=== PATIENT | male | born 1955 | race Caucasian/White ===

== ENCOUNTER 2016-12-15 18:16 | Inpatient (IN) | payer OTHER ==
[~2016-12-15] VITALS: Ht 188 cm; Wt 134.8 kg
--- NOTE | 2016-12-15 18:30 | NUR ---
PT CAME IN FOR GENERALIZED WEAKNESS, NOTED SWELLING ON BLE, COMPLAINS OF MORE WEAKNESS ON LEFT LEG. ABLE TO MOVE, COMPLAINS OF MINIMAL NUMBNESS. PT AAOX3. NOTED ELEVATED BP. SEEN BY MD FOR EVAL. SAFETY AND COMFORT MEASURES PROVIDED. WILL MONITOR.
[2016-12-15] MEDS ORDERED: FURO40TA5 PO (18:46)
[2016-12-15] MEDS ORDERED: POTA20TA83 PO (18:46)
[2016-12-15] MEDS ORDERED: LOSA50TA21 PO (18:46)
[2016-12-15] MEDS ORDERED: AMLO5TAB2 PO (18:46)
[2016-12-15] MEDS ORDERED: ASPIRIN 325 MG TABLET ONE (18:50)
--- NOTE | 2016-12-15 18:59 | NUR ---
IV ACCESS STARTED. BLOOD DRAWN FOR LABS. PT MEDICATED ORDERED.
[2016-12-15] MEDS ORDERED: ASPIRIN 325 MG TABLET PO ONE (19:00)
[2016-12-15 19:07] LABS: BASOPHILS # (AUTO) 0.1 /CMM (0.0-0.2); BASOPHILS % (AUTO) 0.5 % (0.0-2.0); EOSINOPHILS # (AUTO) 0.4 /CMM (0.0-0.7); EOSINOPHILS % (AUTO) 2.6 % (0.0-6.0); HEMATOCRIT 46 % (39-51); HEMOGLOBIN 14.6 g/dL (13.5-17.5); LYMPHOCYTES # (AUTO) 0.9 /CMM (0.8-4.8); LYMPHOCYTES % (AUTO) 6.3 % (20.0-44.0); MEAN CORPUSCULAR HEMOGLOBIN 27 PG (26.0-33.0); MEAN CORPUSCULAR HGB CONC 32 g/dl (31.0-36.0); MEAN CORPUSCULAR VOLUME 86 fL (80-96); MONOCYTES # (AUTO) 0.4 /CMM (0.1-1.30); NEUTROPHILS % (AUTO) 87.6 % (43.0-81.0); PLATELET COUNT (AUTO) 299 /CMM (150-450); RDW COEFFICIENT OF VARIATION 16.9 (11.5-15.0); RED BLOOD CELL COUNT(AUTO) 5.43 MIL/uL (4.5-6.0); WHITE BLOOD COUNT (AUTO) 14.9 K/uL (4.3-11.0)
--- NOTE | 2016-12-15 19:12 | NUR ---
RADIOLOGY TEAM AT BED SIDE FOR X RAY
[2016-12-15 19:24] LABS: CALCIUM, SERUM 8.5 mg/dL (8.5-10.1); CREATININE 4.8 mg/dL (0.6-1.3); POTASSIUM 3.9 mmol/L (3.5-5.1)
[2016-12-15 19:29] LABS: INR 1.13 (0.87-1.13); PROTHROMBIN TIME 12.2 SECS (9.5-12.7)
[2016-12-15 19:33] LABS: TROPONIN I 0.141 ng/mL (0.00-0.056)
[2016-12-15 19:43] LABS: ALBUMIN 2.8 g/dL (3.4-5.0); BILIRUBIN,DIRECT 0.4 mg/dL (0.0-0.2); BILIRUBIN,TOTAL 1.8 mg/dL (0.2-1.0); TOTAL PROTEIN, SERUM 7.1 g/dL (6.4-8.2)
--- NOTE | 2016-12-15 20:14 | NUR ---
CALLED NURSING SUP. FOR TELE BED
--- NOTE | 2016-12-15 20:31 | NUR ---
PT RESTING IN ER BED, NAD NOTED, WILL CONTINUE TO MONITOR
[2016-12-15] MEDS ORDERED: FUROSEMIDE 20 MG/2 ML VIAL IV ONE (21:00)
--- NOTE | 2016-12-15 21:05 | NUR ---
panel call made
--- NOTE | 2016-12-15 21:07 | NUR ---
MEDICATED PT ORDERED
--- NOTE | 2016-12-15 21:08 | NUR ---
TRANSPORTED PT TO TELE BED WITHOUT INCIDENT
[2016-12-15] MEDS ORDERED: FUROSEMIDE 20 MG/2 ML VIAL ONE (21:20)
--- NOTE | 2016-12-15 21:35 | NUR ---
HYDROLOGY PROFESSOR NOTE RECEIVED PATIENT FROM ER, PATIENT IS ALERT AND ORIENTEDX3, WEAK BLE, DENIES RESPIRATORY DISTRESS AND COMPLAINS OF MILD BACK PAIN. IV ON RIGHT AC IS PATENT AND INTACT, MULTIPLE SCABS AND RASHES NOTED ON HIS SKIN, PICTURE TAKEN AND WILL PUT THEM IN A CHART. PATIENT GOT LASIX AT ER, ENCOURAGED PT TO VOID IN A URINAL, BUT WAS NOT ABLE TO DO IT DUE TO SWOLLEN TESTICLES. WILL REQUEST DICKENS INSERT ORDER. TELE MONITOR SR 77 WITH BBB. SRX2, BED IN LOW POSITION, CALL LIGHT WITHIN REACH, WILL CONTINUE TO MONITOR PATIENT.
[2016-12-15] MEDS ORDERED: MORPHINE SULFATE INJ 2 MG/ML DISP.SYRIN IV PRN (22:00)
[2016-12-15] MEDS ORDERED: ACETAMINOPHEN 325 MG TABLET PO PRN (22:00)
[2016-12-15] MEDS ORDERED: ONDANSETRON HCL/PF 4 MG/2 ML VIAL IVP PRN (22:00)
[2016-12-15] MEDS ORDERED: ATORVASTATIN 40 MG TABLET PO SCH (22:00)
[2016-12-15] MEDS ORDERED: MAG HYDROX/AL HYDROX/SIMETH 30 ML UDC PO PRN (22:00)
[2016-12-15] MEDS ORDERED: MAGNESIUM HYDROXIDE 30 ML UDC PO PRN (22:00)
[2016-12-15] MEDS ORDERED: hydrALAZINE HCL 25 MG TABLET ONE (22:08)
[2016-12-15] MEDS ORDERED: ATORVASTATIN 40 MG TABLET ONE (22:09)
--- NOTE | 2016-12-15 22:15 | NUR ---
FILLER WIPER NOTE REPORTED EAMON CIFUENTES THAT PATIENT IS NOT ABLE TO VOID ON HIS OWN INTO URINAL, LASIX GIVEN AT ER, REQUESTED DICKENS INSERTION ORDER. ORDERED DICKENS INSERTION, ORDERS PUT IN. DICKENS CATH WAS INSERTED SUCCESSFULLY, GOT AN URINE SAMPLE. CALLED THE LAB TO OIL PUMP STATION OPERATOR CHIEF THE SPECIMEN.
[2016-12-15] MEDS: hydrALAZINE HCL 25 MG TABLET PO PRN (22:23)
[2016-12-15 22:35] VITALS: BP 203/93
[2016-12-15 23:32] LABS: APPEARANCE,URINE TURBID (CLEAR); BILIRUBIN,URINE NEGATIVE (NEGATIVE); BLOOD, URINE 3+ Ery/uL (NEGATIVE); COLOR,URINE YELLOW (YELLOW); KETONES,URINE TRACE (NEGATIVE); LEUKOCYTE ESTERASE ,URINE 3+ (NEGATIVE); NITRITE, URINE NEGATIVE (NEGATIVE); PH,URINE 5.5 (5.0-8.0); PROTEIN,URINE 2+ mg/dl (NEGATIVE); UGLUCOSE NEGATIVE (NEGATIVE); UROBILINOGEN,URINE 0.2 EU/dL (0.2)
[2016-12-15 23:37] LABS: ADD URINE CULTURE YES; BACTERIA,URINE Moderate /HPF (None Seen); SQUAMOUS EPITHELIAL CELL,UR Rare /HPF (None Seen); WBC,URINE 51-80 /HPF (0-3)
[2016-12-16] VITALS (9 sets, daily range): BP systolic 147–186; BP diastolic 74–96
[2016-12-16] MEDS ORDERED: ENALAPRILAT DIHYD. (2.5MG/ML) 1.25 MG/ML VIAL IV PRN (00:30)
[2016-12-16] MEDS ORDERED: CEFTRIAXONE 1 G in IV D5W 50 ML IV SCH (01:30)
[2016-12-16] MEDS ORDERED: CEFTRIAXONE 1 G VIAL ONE (01:54)
[2016-12-16] MEDS ORDERED: IV D5W 50 ML IV ONE (01:55)
[2016-12-16] MEDS ORDERED: SECONDARY IV SET 1 EA INFUS.SET MC ONE ×2 (01:56→12:50)
[2016-12-16] MEDS ORDERED: IV SET PRIMARY PUMP SET 1 EA INFUS.SET MC ONE (01:56)
[2016-12-16] MEDS ORDERED: IV NS 0.9% 250 ML IV ONE (01:56)
[2016-12-16] MEDS ORDERED: hydrALAZINE HCL 25 MG TABLET ONE (04:37)
[2016-12-16] MEDS: hydrALAZINE HCL 25 MG TABLET PO PRN ×2 (04:42→23:48)
--- NOTE | 2016-12-16 06:44 | NUR ---
PARALEGAL ASSISTANT NOTE PATIENT IS RESTING IN BED COMFORTABLY, DENIES RESPIRATORY DISTRESS OR PAIN AT THIS TIME. IV ON RIGHT AC IS PATENT AND INTACT, HL ONLY. HIS BP AT 0620 WAS 175/93, GETTING LOWER THAN 0400 (186/93). TELE MONITOR SR WITH BBB 73. WILL ENDORSE TO DAY SHIFT FOR SABINA.
[2016-12-16 06:50] LABS: BASOPHILS # (AUTO) 0.1 /CMM (0.0-0.2); BASOPHILS % (AUTO) 0.5 % (0.0-2.0); EOSINOPHILS # (AUTO) 0.4 /CMM (0.0-0.7); EOSINOPHILS % (AUTO) 3.3 % (0.0-6.0); HEMATOCRIT 42 % (39-51); HEMOGLOBIN 13.6 g/dL (13.5-17.5); LYMPHOCYTES # (AUTO) 1.1 /CMM (0.8-4.8); LYMPHOCYTES % (AUTO) 8.1 % (20.0-44.0); MEAN CORPUSCULAR HEMOGLOBIN 28 PG (26.0-33.0); MEAN CORPUSCULAR HGB CONC 32 g/dl (31.0-36.0); MEAN CORPUSCULAR VOLUME 85 fL (80-96); MONOCYTES # (AUTO) 0.6 /CMM (0.1-1.30); MONOCYTES % (AUTO) 4.5 % (2.0-12.0); NEUTROPHILS % (AUTO) 83.6 % (43.0-81.0); PLATELET COUNT (AUTO) 285 /CMM (150-450); RDW COEFFICIENT OF VARIATION 17.2 (11.5-15.0); RED BLOOD CELL COUNT(AUTO) 4.93 MIL/uL (4.5-6.0); WHITE BLOOD COUNT (AUTO) 13.2 K/uL (4.3-11.0)
[2016-12-16 07:16] LABS: CALCIUM, SERUM 8.1 mg/dL (8.5-10.1); CREATININE 4.5 mg/dL (0.6-1.3); MAGNESIUM 1.7 mg/dL (1.8-2.4); PHOSPHORUS 5.1 mg/dL (2.5-4.9); POTASSIUM 3.6 mmol/L (3.5-5.1)
--- NOTE | 2016-12-16 08:00 | NUR ---
FRIDA AM NOTES RECEIVED PATIENT IN STABLE CONDITION WITH NO SOB, DISTRESS, OR COMPLAINTS OF PAIN NOTED. ALL NEEDS MET. WILL CONTINUE TO MONITOR
[2016-12-16] MEDS ORDERED: AMLODIPINE BESYLATE 5 MG TABLET PO SCH (09:00)
[2016-12-16] MEDS ORDERED: LOSARTAN POTASSIUM 50 MG TABLET PO SCH (09:00)
[2016-12-16] MEDS: ASPIRIN 81 MG TAB.CHEW PO SCH (10:40)
[2016-12-16] MEDS: PANTOPRAZOLE 40 MG TABLET.DR PO SCH (10:40)
[2016-12-16] MEDS ORDERED: Magnesium 1GM/D5W 100ML PREMIX 100 ML IV SCH (10:46)
[2016-12-16 11:13] LABS: THYROID STIMULATING HORMONE 0.947 uIU/mL (0.358-3.74)
[2016-12-16] MEDS: HEPARIN SODIUM, PORCINE 5000 UNITS/1 ML VIAL SQ SCH ×2 (13:01→21:07)
[2016-12-16] MEDS: ISOSORBIDE DINITRATE (20MG) 20 MG TABLET PO SCH ×2 (13:04→16:44)
[2016-12-16] MEDS: hydrALAZINE HCL 25 MG TABLET PO SCH ×2 (13:08→21:05)
--- NOTE | 2016-12-16 19:05 | NUR ---
RN PM NOTES PATIENT IN BED RESTING, COMPLAINTS OF 3/10 PAIN, OFFLOADED BLE WITH PILLOWS AND GAVE PAIN MEDICATION, PATIENT FEELS RELIEF. FRESH WATER AT BEDSIDE, PATIENT WITH ADEQUATE PO LIQUID INTAKE. NEW PIV IN RIGHT HAND G 22, WITH GOOD BLOOD RETURN, RESTARTED USING ASEPTIC TECHNIQUE INTACT AND FLUSHING WELL; OLD IV DISLODGED. NO BLEEDING OR SIGNS OR SYMPTOMS OF INFILTRATION, EXTRAVASATION NOTED AT OLD SITE. BP MEDS CHANGED TODAY, BP TRENDING DOWN. WILL ENDORSE TO NEXT SHIFT.
--- NOTE | 2016-12-16 19:45 | NUR ---
MS RN INITIAL NOTES: RECEIVED REPORT FROM POLA GALICIA. PT ON BED, AWAKE, A/O X4, DENIES ANY SOB, LUNGS CLEAR UPON AUSCULTATION. DENIES ANY PAIN AT THIS TIME. LEFT HAND IV ACCESS PATENT AND FLUSHING WELL, ON HL. PT NOTED TO HAVE EDEMA ON BLE AND LEFT HAND, OFFLOADED ON PILLOWS. HAS DICKENS CATHETER IN PLACED DRAINING INTO YELLOW COLORED URINE. SAFETY PRECAUTIONS FOR FALL INITIATED CALL LIGHT IN REACH. WILL CONTINUE TO MONITOR
[2016-12-16] MEDS ORDERED: DOXAZOSIN MESYLATE (1 MG) 1 MG TABLET PO SCH (22:00)
--- NOTE | 2016-12-16 23:31 | NUR ---
ms rn notes: experimental machining lab manager came to draw troponin
[2016-12-16] MEDS: ZOLPIDEM TARTRATE 5 MG TABLET PO PRN (23:49)
--- NOTE | 2016-12-16 23:49 | NUR ---
ms rn notes: pt requested for sleeping pill stated he didnt sleep for 2days and really would like to sleep, prn ambien 5mg tab po administered to the pt, also recheck bp and reveal 164/78 hr 78, prn apresoline 25mg po administered to the pt at this time, will continue to monitor
--- NOTE | 2016-12-17 01:07 | NUR ---
MS RN NOTES: TROPONIN RESULT CAME BACK 0.126 PREVIOUS RESULT IS 0.117, VS STABLE, PT DENIES ANY CHEST PAIN, INFORMED DR HUMPHRIES, NO NEW ORDERS MADE
[2016-12-17] MEDS ORDERED: SECONDARY IV SET 1 EA INFUS.SET MC ONE (01:56)
[2016-12-17] MEDS: CEFTRIAXONE 1 G in IV D5W 50 ML IV SCH (01:56)
--- NOTE | 2016-12-17 02:15 | NUR ---
ms rn notes: seen pt sleeping at this time, appears comfortable
[2016-12-17 05:30] VITALS: BP 180/83
[2016-12-17] MEDS: hydrALAZINE HCL 25 MG TABLET PO SCH ×3 (05:31→21:32)
[2016-12-17] MEDS: Z GUARD REMEDY 2 OZ OINT TP PRN (05:32)
[2016-12-17 06:30] VITALS: BP 151/77
--- NOTE | 2016-12-17 06:49 | NUR ---
ms rn closing notes: pt on bed, awake, denies any pain or discomfort at this time. denies any sob. ble remains offloaded. lake bag was emptied. iv access remains patent and flushing well, on hl. vs remains stable, needs attended. safety precautions for fall remains engaged, call light in reach. will endorse to day rn for radha.
[2016-12-17 06:59] LABS: BASOPHILS # (AUTO) 0.1 /CMM (0.0-0.2); BASOPHILS % (AUTO) 0.6 % (0.0-2.0); EOSINOPHILS # (AUTO) 0.6 /CMM (0.0-0.7); EOSINOPHILS % (AUTO) 3.7 % (0.0-6.0); HEMATOCRIT 38 % (39-51); HEMOGLOBIN 12.2 g/dL (13.5-17.5); LYMPHOCYTES # (AUTO) 1.3 /CMM (0.8-4.8); LYMPHOCYTES % (AUTO) 7.7 % (20.0-44.0); MEAN CORPUSCULAR HEMOGLOBIN 28 PG (26.0-33.0); MEAN CORPUSCULAR HGB CONC 32 g/dl (31.0-36.0); MEAN CORPUSCULAR VOLUME 86 fL (80-96); MONOCYTES # (AUTO) 0.7 /CMM (0.1-1.30); MONOCYTES % (AUTO) 3.8 % (2.0-12.0); NEUTROPHILS # (AUTO) 14.4 /CMM (1.8-8.9); NEUTROPHILS % (AUTO) 84.2 % (43.0-81.0); PLATELET COUNT (AUTO) 245 /CMM (150-450); RED BLOOD CELL COUNT(AUTO) 4.36 MIL/uL (4.5-6.0); WHITE BLOOD COUNT (AUTO) 17.1 K/uL (4.3-11.0)
[2016-12-17 07:25] LABS: CALCIUM, SERUM 7.8 mg/dL (8.5-10.1); CREATININE 4.5 mg/dL (0.6-1.3); POTASSIUM 3.6 mmol/L (3.5-5.1)
[2016-12-17 07:26] LABS: ALBUMIN 2.3 g/dL (3.4-5.0); BILIRUBIN,TOTAL 0.6 mg/dL (0.2-1.0); MAGNESIUM 1.8 mg/dL (1.8-2.4); PHOSPHORUS 4.7 mg/dL (2.5-4.9); TOTAL PROTEIN, SERUM 5.8 g/dL (6.4-8.2)
[2016-12-17 07:35] LABS: BILIRUBIN,URINE NEGATIVE (NEGATIVE); BLOOD, URINE 1+ Ery/uL (NEGATIVE); KETONES,URINE NEGATIVE (NEGATIVE); LEUKOCYTE ESTERASE ,URINE NEGATIVE (NEGATIVE); NITRITE, URINE NEGATIVE (NEGATIVE); PH,URINE 5.5 (5.0-8.0); PROTEIN,URINE 2+ mg/dl (NEGATIVE); UGLUCOSE TRACE mg/dL (NEGATIVE); UROBILINOGEN,URINE 0.2 EU/dL (0.2)
[2016-12-17 07:36] LABS: APPEARANCE,URINE SLIGHTLY CLOUDY (CLEAR); COLOR,URINE YELLOW (YELLOW)
[2016-12-17 07:39] LABS: ADD URINE CULTURE YES; BACTERIA,URINE Few /HPF (None Seen); MUCUS,URINE Few /LPF (None Seen); SQUAMOUS EPITHELIAL CELL,UR 0-2 /HPF (None Seen); URINE AMORPHOUS URATE Few /HPF (None Seen)
[2016-12-17 07:42] LABS: CREATININE, URINE 91.9 MG/DL (30.0-125.0); URINE TOTAL PROTEIN 246.7 mg/dL (0-11.9)
[2016-12-17 08:00] VITALS: BP 159/93
[2016-12-17 08:18] LABS: EOSINOPHIL,URINE None Seen
[2016-12-17] MEDS ORDERED: NIFEdipine XL 60 MG TAB PO SCH (09:00)
--- NOTE | 2016-12-17 09:05 | NUR ---
PATIENT RESIDES AT HOME BY HIMSELF. PER PATIENT, WILL AGREE WITH PLACEMENT IF RECOMMENDED BY PT SINCE PATIENT REPORTED THAT HE HAS DIFFICULTY AMBULATING. PATIENT IS A&OX3, NEEDS ASSISTANCE WITH ADLS. NEEDS TRANSPORTATION UPON D/C.
--- NOTE | 2016-12-17 09:32 | NUR ---
WOUND CARE CONSULT: PATIENT SEEN AND SKIN ASSESSMENT DONE. PATIENT ALERT, HAS DIFFICULTY TURNING AND REPOSITIONING DUE TO C/O BACK PAIN, HAS F/C, MADELYN 14, WEIGHT = 303 LBS, BARIMAXX II BED WITH ETS ORDERED AND WILL BE PLACED WHEN AVAILABLE IN THE UNIT. SEE TODAY'S SKIN ASSESSMENT IN PCS ALONG WITH RECOMMENDATIONS INCLUDING MOISTURE PROTECTION AND PRESSURE PREVENTION MEASURES DISCUSSED WITH NURSING STAFF. MD IN AGREEMENT WITH PLAN OF CARE. Addendum: 12/17/16 at 0936 by MARCUS TOBIN WNDNU Amended: Links added.
[2016-12-17] MEDS: PANTOPRAZOLE 40 MG TABLET.DR PO SCH (09:40)
[2016-12-17] MEDS: ASPIRIN 81 MG TAB.CHEW PO SCH (09:40)
[2016-12-17] MEDS: ISOSORBIDE DINITRATE (20MG) 20 MG TABLET PO SCH ×2 (09:41→17:15)
[2016-12-17] MEDS: NIFEdipine XL (30MG) 30 MG TAB PO SCH (09:41)
[2016-12-17] MEDS: HEPARIN SODIUM, PORCINE 5000 UNITS/1 ML VIAL SQ SCH ×2 (09:48→21:30)
[2016-12-17] MEDS: HYDROCODONE/APAP 5/325MG 1 EACH TABLET PO PRN (14:15)
[2016-12-17 16:00] VITALS: BP 140/76
[2016-12-17] MEDS: DOXAZOSIN MESYLATE (1 MG) 1 MG TABLET PO SCH (17:14)
[2016-12-17] MEDS: NEOMY SULF/BACITRAC ZN/POLY 15 GM TUBE TP SCH (17:15)
--- NOTE | 2016-12-17 18:41 | NUR ---
CHANGE OF SHIFT REPORT PT RESTING COMFORTABLY IN BED WITH EYES CLOSED. NO S/S OR C/O PAIN OR DISTRESS NOTED. SIDE RAILS UP X2, CALL LIGHT LEFT WITHIN REACH. PT KEPT CLEAN, DRY, AND COMFORTABLE. NO SIGNIFICANT CHANGES SINCE PREVIOUS SHIFT. WILL GIVE REPORT TO SHEY GALICIA.
--- NOTE | 2016-12-17 19:30 | NUR ---
BEVELING AND EDGING MACHINE OPERATOR NOTE, RECEIVED PATIENT AWAKE AND IN BED, NO S/S OR COMPLAINTS OF PAIN AT THIS TIME. PATIENT IS DISPLAYING NO S/S OF APPARENT DISTRESS AT THIS TIME. PATIENT BREATHING IS UNLABORED WITH EQUAL RISE AND FALL OF THE CHEST. PATIENT IS ALERT AND ORIENTED X 3 ON 3 LITERS OF O2 VIA NASAL CANNULA WITH A SPO2 93%. PATIENT HAS LEFT HAND 22 GAUGE SALINE LOCK THAT IS INTACT, PATENT, AND FLUSHING WELL WITH NO S/S OF INFILTRATION. PATIENT ASSISTED WITH TURNING AND REPOSITIONING Q2HR AND PRN FOR COMFORT AND CIRCULATION. PATIENT HAS NO NEEDS AT THIS TIME. PATIENT EDUCATED ON THE USE OF THE CALL HOOVER. PATIENT BED SIDE RAILS UP X2 FOR SAFETY, BED IS LOCKED AND LOW WILL CONTINUE TO MONITOR AND MAINTAIN SAFETY.
--- NOTE | 2016-12-17 19:35 | NUR ---
R PROGRAMMER NOTE PATIENT HAS DICKENS CATHETER GRAVITY DRAINING CLEAR YELLOW URINE 200 ML IN BAG AT THIS TIME. WILL CONTINUE TO MONITOR THIS PATIENT.
[2016-12-17 20:00] VITALS: BP 152/76
[2016-12-18 00:33] VITALS: BP 152/76
[2016-12-18] MEDS: CEFTRIAXONE 1 G in IV D5W 50 ML IV SCH (01:49)
[2016-12-18 02:15] LABS: VIT D, 25-HYDROXY 7.8 ng/mL (30.0-100.0)
[2016-12-18] MEDS: hydrALAZINE HCL 25 MG TABLET PO SCH ×3 (04:11→22:03)
--- NOTE | 2016-12-18 06:33 | NUR ---
REPEAT CHIEF NOTE, PATIENT AWAKE AND IN BED, NO S/S OR COMPLAINTS OF PAIN AT THIS TIME. PATIENT IS DISPLAYING NO S/S OF APPARENT DISTRESS AT THIS TIME. PATIENT BREATHING IS UNLABORED WITH EQUAL RISE AND FALL OF THE CHEST. PATIENT IS ALERT AND ORIENTED X 3 ON 3 LITERS OF O2 VIA NASAL CANNULA WITH A SPO2 96%. PATIENT HAS LEFT HAND 22 GAUGE SALINE LOCK THAT IS INTACT, PATENT, AND FLUSHING WELL WITH NO S/S OF INFILTRATION. PATIENT HAS A DICKENS CATHETER GRAVITY DRAINING CLEAR YELLOW URINE. PATIENT ASSISTED WITH TURNING AND REPOSITIONING Q2HR AND PRN FOR COMFORT AND CIRCULATION. ALL PATIENT NEEDS ANTICIPATED AND MET. PATIENT KEPT CLEAN, DRY, AND COMFORTABLE THROUGH OUT THE SHIFT. PATIENT BED SIDE RAILS UP X2 FOR SAFETY, BED IS LOCKED AND LOW WILL ENDORSE TO AM SHIFT NURSE FOR CONTINUATION OF CARE.
[2016-12-18 07:26] LABS: CALCIUM, SERUM 7.9 mg/dL (8.5-10.1); CREATININE 4.5 mg/dL (0.6-1.3); POTASSIUM 3.6 mmol/L (3.5-5.1)
--- NOTE | 2016-12-18 07:30 | NUR ---
PT RECEIVED RESTING COMFORTABLY IN BED. NO S.S OR C.O PAIN OR DISTRESS NOTED. SIDE RAILS UP X2, CALL LIGHT LEFT WITHIN REACH. WILL CONTINUE PLAN OF CARE.
[2016-12-18 07:32] LABS: BASOPHILS # (AUTO) 0.1 /CMM (0.0-0.2); BASOPHILS % (AUTO) 0.7 % (0.0-2.0); EOSINOPHILS # (AUTO) 0.4 /CMM (0.0-0.7); EOSINOPHILS % (AUTO) 4.7 % (0.0-6.0); HEMATOCRIT 37 % (39-51); HEMOGLOBIN 11.9 g/dL (13.5-17.5); MEAN CORPUSCULAR HEMOGLOBIN 28 PG (26.0-33.0); MEAN CORPUSCULAR HGB CONC 32 g/dl (31.0-36.0); MEAN CORPUSCULAR VOLUME 85 fL (80-96); MONOCYTES # (AUTO) 0.5 /CMM (0.1-1.30); MONOCYTES % (AUTO) 5.2 % (2.0-12.0); NEUTROPHILS # (AUTO) 7.3 /CMM (1.8-8.9); NEUTROPHILS % (AUTO) 78.4 % (43.0-81.0); PLATELET COUNT (AUTO) 227 /CMM (150-450); RDW COEFFICIENT OF VARIATION 16.7 (11.5-15.0); WHITE BLOOD COUNT (AUTO) 9.3 K/uL (4.3-11.0)
[2016-12-18 08:00] VITALS: BP 141/77
[2016-12-18 08:24] LABS: *SPE A/G RATIO 0.9 (0.7-1.7); *SPE ALBUMIN 2.4 g/dL (2.9-4.4); *SPE ALPHA-1-GLOBULIN 0.3 g/dL (0.0-0.4); *SPE ALPHA-2-GLOBULIN 0.8 g/dL (0.4-1.0); *SPE BETA GLOBULIN 1.1 g/dL (0.7-1.3); *SPE GLOBULIN, TOTAL 2.8 g/dL (2.2-3.9); *SPE M-SPIKE Not Observed g/dL (Not Observed); *SPE PROTEIN TOTAL 5.2 g/dL (6.0-8.5); *SPEGAMMA GLOBULIN 0.7 g/dL (0.4-1.8)
[2016-12-18] MEDS: HEPARIN SODIUM, PORCINE 5000 UNITS/1 ML VIAL SQ SCH ×2 (08:35→22:04)
[2016-12-18] MEDS: DOXAZOSIN MESYLATE (1 MG) 1 MG TABLET PO SCH ×2 (08:38→16:37)
[2016-12-18] MEDS: ISOSORBIDE DINITRATE (20MG) 20 MG TABLET PO SCH ×2 (08:38→16:37)
[2016-12-18] MEDS: ASPIRIN 81 MG TAB.CHEW PO SCH (08:38)
[2016-12-18] MEDS: NIFEdipine XL (30MG) 30 MG TAB PO SCH (08:39)
[2016-12-18] MEDS: PANTOPRAZOLE 40 MG TABLET.DR PO SCH (08:39)
[2016-12-18] MEDS: NEOMY SULF/BACITRAC ZN/POLY 15 GM TUBE TP SCH (08:40)
[2016-12-18 10:33] LABS: *SPE A/G RATIO 0.9 (0.7-1.7); *SPE ALBUMIN 2.4 g/dL (2.9-4.4); *SPE ALPHA-1-GLOBULIN 0.3 g/dL (0.0-0.4); *SPE ALPHA-2-GLOBULIN 0.7 g/dL (0.4-1.0); *SPE GLOBULIN, TOTAL 2.6 g/dL (2.2-3.9); *SPE M-SPIKE Not Observed g/dL (Not Observed); *SPEGAMMA GLOBULIN 0.6 g/dL (0.4-1.8)
--- NOTE | 2016-12-18 15:00 | NUR ---
PT REFUSED MRI
[2016-12-18 16:00] VITALS: BP 141/77
--- NOTE | 2016-12-18 18:15 | NUR ---
PT REFUSED MRI TEACHING PERFORMED TO EXPLAIN IMPORTANCE OF PROCEDURE BUT PT CONTINUES TO REFUSE STATING HE CAN'T LAY FLAT AND STILL LONG ENOUGH.
[2016-12-18 20:00] VITALS: BP 140/85
--- NOTE | 2016-12-18 20:01 | NUR ---
MS/RN NOTES PATIENT IN BED, AWAKE AND ALERT X4. NO S/S OF SOD OR DISTRESS BUT VERBALIZE THAT HE DID NOT WANT TO HAVE MRI BECAUSE HE CANT LIE FLAT AND THAT HE DOES NOT NEED ANY MED TO CALM HIM DOEN EITHER ALTHOUGH HE WAS CONCERN WITH HIS CONDITION ESPECIALLY ON LEFT FOOT REFLEX THAT CONCERNS WITH NEURO CONSULT.NEURO WILL CONTINUE TO MONITOR..
[2016-12-19] MEDS: CEFTRIAXONE 1 G in IV D5W 50 ML IV SCH (00:50)
[2016-12-19 03:58] VITALS: BP 148/74
[2016-12-19] MEDS: hydrALAZINE HCL 25 MG TABLET PO SCH ×3 (05:15→21:21)
--- NOTE | 2016-12-19 06:00 | NUR ---
MS/RN NOTES PATIENT ALERT, ORIENTED CAN VERBALIZE NEEDS AT ALL TIMES. NO S/S OF SOB OR DISTRESS NOTED ENDORS TO UPCOMING NURSE FOR CARE.
--- NOTE | 2016-12-19 07:00 | NUR ---
MS RN INITIAL NOTES REPORT RECEIVED AT THE BEDSIDE. PATIENT IS RESTING COMFORTABLY IN BED. NO SOB OR DISTRESS NOTED AT THIS TIME. PATIENT DENIES PAIN. BED IN A LOW POSITION, CALL LIGHT WITHIN PATIENT REACH. WILL CONTINUE TO MONITOR.
[2016-12-19 07:04] LABS: BASOPHILS # (AUTO) 0.1 /CMM (0.0-0.2); BASOPHILS % (AUTO) 0.7 % (0.0-2.0); EOSINOPHILS # (AUTO) 0.4 /CMM (0.0-0.7); EOSINOPHILS % (AUTO) 4.7 % (0.0-6.0); HEMATOCRIT 38 % (39-51); HEMOGLOBIN 12.1 g/dL (13.5-17.5); MEAN CORPUSCULAR HEMOGLOBIN 28 PG (26.0-33.0); MEAN CORPUSCULAR HGB CONC 32 g/dl (31.0-36.0); MEAN CORPUSCULAR VOLUME 86 fL (80-96); MONOCYTES # (AUTO) 0.5 /CMM (0.1-1.30); MONOCYTES % (AUTO) 6.3 % (2.0-12.0); NEUTROPHILS # (AUTO) 6.6 /CMM (1.8-8.9); NEUTROPHILS % (AUTO) 76.3 % (43.0-81.0); PLATELET COUNT (AUTO) 226 /CMM (150-450); RDW COEFFICIENT OF VARIATION 16.5 (11.5-15.0); RED BLOOD CELL COUNT(AUTO) 4.39 MIL/uL (4.5-6.0); WHITE BLOOD COUNT (AUTO) 8.6 K/uL (4.3-11.0)
[2016-12-19] MEDS: ASPIRIN 81 MG TAB.CHEW PO SCH (08:12)
[2016-12-19] MEDS: DOXAZOSIN MESYLATE (1 MG) 1 MG TABLET PO SCH ×2 (08:12→16:56)
[2016-12-19] MEDS: PANTOPRAZOLE 40 MG TABLET.DR PO SCH (08:13)
[2016-12-19] MEDS: NIFEdipine XL (30MG) 30 MG TAB PO SCH (08:13)
[2016-12-19] MEDS: NEOMY SULF/BACITRAC ZN/POLY 15 GM TUBE TP SCH (08:13)
[2016-12-19] MEDS: ISOSORBIDE DINITRATE (20MG) 20 MG TABLET PO SCH ×2 (08:13→16:56)
[2016-12-19] MEDS: HEPARIN SODIUM, PORCINE 5000 UNITS/1 ML VIAL SQ SCH ×2 (08:14→21:23)
[2016-12-19 08:33] VITALS: BP 151/79
[2016-12-19 08:42] LABS: POTASSIUM 3.4 mmol/L (3.5-5.1)
[2016-12-19 08:43] LABS: CALCIUM, SERUM 8.1 mg/dL (8.5-10.1); CREATININE 4.2 mg/dL (0.6-1.3); PHOSPHORUS 4.9 mg/dL (2.5-4.9)
[2016-12-19 08:44] LABS: ALBUMIN 2.4 g/dL (3.4-5.0); BILIRUBIN,TOTAL 0.5 mg/dL (0.2-1.0)
[2016-12-19] MEDS ORDERED: LORAZEPAM INJ 2 MG/ML VIAL IV PRN ×2 (10:00)
[2016-12-19] MEDS ORDERED: SECONDARY IV SET 1 EA INFUS.SET MC ONE (10:03)
[2016-12-19 10:06] LABS: MAGNESIUM 1.8 mg/dL (1.8-2.4); TOTAL PROTEIN, SERUM 6.3 g/dL (6.4-8.2)
[2016-12-19] MEDS: POTASSIUM CL. PREMIX PERIPHER. 50 ML IV SCH ×2 (10:08→11:27)
--- NOTE | 2016-12-19 11:40 | NUR ---
MS RN NOTES ATTEMPTED TO TURN PATIENT PART OF Q2H SCHEDULE. PATIENT STATES THAT HE IS NOT YET READY TO TURN. HE STATES THAT HE WILL TELL US WHEN HE IS READY TO TURN. WILL ATTEMPT AGAIN LATER.
[2016-12-19 12:27] LABS: CALCITRIOL VIT D,1, 25 DIHYDRO 8.1 pg/mL (19.9-79.3)
--- NOTE | 2016-12-19 14:42 | NUR ---
MS RN NOTES IT IS DETERMINED THAT THE PATIENT IS UNABLE TO WALK AND NOT ABLE TO DO MRI OUTPATIENT. DR LESLIE'S OFFICE CALLED AND INFORMED. DR SCHNEIDER CALLED, AWAITING RETURN CALL.
[2016-12-19 16:59] VITALS: BP 134/67
--- NOTE | 2016-12-19 18:30 | NUR ---
MS RN CLOSING NOTES NO SIGNIFICANT CHANGES IN PATIENT CONDITION THROUGHOUT THE SHIFT. NO SOB OR DISTRESS NOTED AT THIS TIME. PATIENT DENIES PAIN. BED IN A LOW POSITION, CALL LIGHT WITHIN PATIENT REACH. WILL CONTINUE TO MONITOR.
[2016-12-19 20:00] VITALS: BP 140/72
--- NOTE | 2016-12-19 20:00 | NUR ---
MS CARD STRIPPER INITIAL NOTES SEEN PT IN BED ON SITTING POSITION , RESTING WITH EYES CLOSED BUT AROUSES TO TOUCH AND TO HIS NAME. DENIES ANY PAIN OR ANY DISCOMFORT. ENCOURAGE HIM TO TURN SIDE TO SIDE . WITH O2 AT 3 LITERS VIA NC. RESPIRATION EVEN AND UN-LABORED SKIN WARM AND DRY TO TOUCH, NOTED SWELLING ON HIS LOWER EXTREMITIES , RIGHT HAND HEPLOCK PATENT AND INTACT AND EDEMA NOTED ON HIS LEFT HAND. OFFLOAD ON PILLOWS. NOT IN ANY ACUTE DISTRESS NOTED. DICKENS TO GRAVITY. PLACE CALL LIGHT AT REACH. WILL CONTINUE TO MONITOR.
[2016-12-19] MEDS: ZOLPIDEM TARTRATE 5 MG TABLET PO PRN (23:18)
[2016-12-20] MEDS: CEFTRIAXONE 1 G in IV D5W 50 ML IV SCH (01:43)
[2016-12-20] MEDS: hydrALAZINE HCL 25 MG TABLET PO SCH ×3 (06:55→20:57)
[2016-12-20 07:26] LABS: BASOPHILS % (AUTO) 0.5 % (0.0-2.0); EOSINOPHILS # (AUTO) 0.6 /CMM (0.0-0.7); EOSINOPHILS % (AUTO) 6.2 % (0.0-6.0); HEMATOCRIT 38 % (39-51); HEMOGLOBIN 12.2 g/dL (13.5-17.5); LYMPHOCYTES # (AUTO) 0.8 /CMM (0.8-4.8); LYMPHOCYTES % (AUTO) 8.9 % (20.0-44.0); MEAN CORPUSCULAR HEMOGLOBIN 28 PG (26.0-33.0); MEAN CORPUSCULAR HGB CONC 32 g/dl (31.0-36.0); MEAN CORPUSCULAR VOLUME 86 fL (80-96); MONOCYTES # (AUTO) 0.5 /CMM (0.1-1.30); MONOCYTES % (AUTO) 4.9 % (2.0-12.0); NEUTROPHILS # (AUTO) 7.3 /CMM (1.8-8.9); NEUTROPHILS % (AUTO) 79.5 % (43.0-81.0); PLATELET COUNT (AUTO) 241 /CMM (150-450); RDW COEFFICIENT OF VARIATION 16.6 (11.5-15.0); WHITE BLOOD COUNT (AUTO) 9.2 K/uL (4.3-11.0)
--- NOTE | 2016-12-20 07:39 | NUR ---
SAND CUTTER/CLOSING NOTES PT REMAINS SLEEPING BUT AROUSES TO TOUCH, SPOKE TO HIM TO HAVE HIM MORNING CARE BUT PT REFUSING EVEN I TOLD HIM THE CONSEQUENCES OF NOT CLEANING AND DO HIS SKIN TREATMENT. HE STATED "DO IT LATER PLEASE". DENIES ANY PAIN OR ANY DISCOMFORT. NOT IN ANY ACUTE DISTRESS NOTED. STABLE RANCHO THE NIGHT AND SLEPT WELL AFTER AMBIEN GIVEN LAST NIGHT. ENDORSE TO AM NURSE FOR CONTINUITY OF CARE. PLACE CALL LIGHT AT REACH.
[2016-12-20 08:00] VITALS: BP 152/75
--- NOTE | 2016-12-20 08:00 | NUR ---
MS RN NOTES PATIENT IN BED RESTING NO SOB OR ACUTE DISTRESS NOTED. DENIES ANY PAIN OR DISCOMFORT. CALL LIGHT WITHIN REACH. BED IN LOW LOCKED POSITION. WILL CONTINUE TO MONITOR.
[2016-12-20] MEDS: ISOSORBIDE DINITRATE (20MG) 20 MG TABLET PO SCH ×2 (08:27→16:43)
[2016-12-20] MEDS: DOXAZOSIN MESYLATE (1 MG) 1 MG TABLET PO SCH ×2 (08:27→16:43)
[2016-12-20] MEDS: ASPIRIN 81 MG TAB.CHEW PO SCH (08:27)
[2016-12-20] MEDS: PANTOPRAZOLE 40 MG TABLET.DR PO SCH (08:27)
[2016-12-20] MEDS: NIFEdipine XL (30MG) 30 MG TAB PO SCH (08:27)
[2016-12-20] MEDS: HEPARIN SODIUM, PORCINE 5000 UNITS/1 ML VIAL SQ SCH ×2 (08:38→21:05)
[2016-12-20] MEDS: NEOMY SULF/BACITRAC ZN/POLY 15 GM TUBE TP SCH (08:39)
[2016-12-20 09:25] LABS: PTH, INTACT 182 pg/mL (15-65); VIT D, 25-HYDROXY 6.7 ng/mL (30.0-100.0)
[2016-12-20 09:52] LABS: CALCIUM, SERUM 8.4 mg/dL (8.5-10.1); CREATININE 4.1 mg/dL (0.6-1.3); MAGNESIUM 1.9 mg/dL (1.8-2.4); POTASSIUM 3.9 mmol/L (3.5-5.1)
[2016-12-20] MEDS ORDERED: ERGOCALCIFEROL (VITAMIN D 2) 50,000 UNIT CAPSULE PO SCH (11:00)
--- NOTE | 2016-12-20 12:00 | NUR ---
MS RN NOTES PATIENT SEEN AND EVALUATED BY DR. OLGUIN ORDERS NOTED AND CARRIED OUT .
[2016-12-20 12:19] LABS: *SPE A/G RATIO 0.8 (0.7-1.7); *SPE ALBUMIN 2.3 g/dL (2.9-4.4); *SPE ALPHA-1-GLOBULIN 0.4 g/dL (0.0-0.4); *SPE ALPHA-2-GLOBULIN 0.8 g/dL (0.4-1.0); *SPE BETA GLOBULIN 1.1 g/dL (0.7-1.3); *SPE GLOBULIN, TOTAL 2.9 g/dL (2.2-3.9); *SPE M-SPIKE Not Observed g/dL (Not Observed); *SPE PROTEIN TOTAL 5.2 g/dL (6.0-8.5); *SPEGAMMA GLOBULIN 0.6 g/dL (0.4-1.8); PTH, INTACT 176 pg/mL (15-65)
[2016-12-20 16:00] VITALS: BP 149/75
--- NOTE | 2016-12-20 19:07 | NUR ---
MS RN NOTES PATIENT IN BED NO SOB OR ACUTE DISTRESS NOTED. DENIES ANY PAIN OR DISCOMFORT. ALL DUE MEDICATIONS GIVEN ALL NEED MET WILL ENDORSE TO PM SHIFT SABINA.
[2016-12-20 20:00] VITALS: BP 148/72
--- NOTE | 2016-12-20 20:00 | NUR ---
MS TOBACCO BLENDER INITIAL NOTES RECEIVED PT IN BED AWAKE AND ALERT WATCHING TV AT THIS TIME, RESPIRATION EVEN AND NON-LABORED, WITH O2 AT 3 LITERS VIA NC. DENIES ANY PAIN , PT REQUESTED HIS SLEEP MEDICATION . STILL WITH EDEMA ON BOTH LOWER LEGS AND HANDS. KEPT HIM WARM AND COMFORTABLE AT ALL TIMES. WILL CONTINUE TO MONITOR. PLACE CALL LIGHT AT REACH.
[2016-12-20] MEDS: ZOLPIDEM TARTRATE 5 MG TABLET PO PRN (21:38)
--- NOTE | 2016-12-21 | NUR ---
MS PRESS TENDER NOTES PT SLEEPING COMFORTABLY IN BED WITHOUT ANY ACUTE DISTRESS NOTED. KEPT HIM WARM AND COMFORTABLE AT ALL TIMES. PLACE CALL LIGHT AT REACH.
[2016-12-21] MEDS: CEFTRIAXONE 1 G in IV D5W 50 ML IV SCH (02:14)
[2016-12-21] MEDS: NEOMY SULF/BACITRAC ZN/POLY 15 GM TUBE TP SCH (05:04)
[2016-12-21] MEDS: Z GUARD REMEDY 2 OZ OINT TP PRN (05:04)
[2016-12-21] MEDS: hydrALAZINE HCL 25 MG TABLET PO SCH ×3 (05:24→22:05)
[2016-12-21 05:34] VITALS: BP 150/74
--- NOTE | 2016-12-21 05:38 | NUR ---
MARINE MECHANIC/NOTES SPONGES BATH RENDERED WELL HIS SKIN TREATMENT, PT DENIES ANY PAIN OR ANY DISCOMFORT. NOT IN ANY ACUTE DISTRESS NOTED. REPOSITION HIM FOR COMFORT. PT STATED "THANK YOU ". KEPT HIM COMFORTABLE AT ALL TIMES. PLACE CALL LIGHT AT REACH. WILL CONTINUE TO MONITOR.
[2016-12-21 06:41] LABS: BASOPHILS % (AUTO) 0.5 % (0.0-2.0); EOSINOPHILS # (AUTO) 0.7 /CMM (0.0-0.7); HEMATOCRIT 38 % (39-51); HEMOGLOBIN 12.3 g/dL (13.5-17.5); LYMPHOCYTES # (AUTO) 0.8 /CMM (0.8-4.8); LYMPHOCYTES % (AUTO) 8.9 % (20.0-44.0); MEAN CORPUSCULAR HEMOGLOBIN 28 PG (26.0-33.0); MEAN CORPUSCULAR HGB CONC 32 g/dl (31.0-36.0); MEAN CORPUSCULAR VOLUME 86 fL (80-96); MONOCYTES # (AUTO) 0.4 /CMM (0.1-1.30); MONOCYTES % (AUTO) 4.4 % (2.0-12.0); NEUTROPHILS % (AUTO) 78.2 % (43.0-81.0); PLATELET COUNT (AUTO) 244 /CMM (150-450); RDW COEFFICIENT OF VARIATION 16.9 (11.5-15.0); RED BLOOD CELL COUNT(AUTO) 4.44 MIL/uL (4.5-6.0)
--- NOTE | 2016-12-21 06:55 | NUR ---
MS ASPHALT SURFACE HEATER OPERATOR CLOSING NOTES PT RESTING COMFORTABLY IN BED , BREATHING EVEN AND UN-LABORED, NOT IN ANY ACUTE DISTRESS NOTED, DENIES ANY PAIN OR ANY DISCOMFORT, STABLE RANCHO THE NIGHT . SLEPT WELL AFTER AMBIEN GIVEN LAST NIGHT. KEPT HIM COMFORTABLE AT ALL TIMES. PLACE CALL LIGHT AT REACH. ENDORSE TO AM NURSE FOR CONTINUITY OF CARE.
[2016-12-21 07:08] LABS: CALCIUM, SERUM 8.5 mg/dL (8.5-10.1); CREATININE 4.1 mg/dL (0.6-1.3); MAGNESIUM 1.9 mg/dL (1.8-2.4); POTASSIUM 4.1 mmol/L (3.5-5.1)
[2016-12-21 08:00] VITALS: BP 142/70
[2016-12-21] MEDS: ISOSORBIDE DINITRATE (20MG) 20 MG TABLET PO SCH ×2 (08:30→17:47)
[2016-12-21] MEDS: DOXAZOSIN MESYLATE (1 MG) 1 MG TABLET PO SCH ×2 (08:31→17:47)
[2016-12-21] MEDS: PANTOPRAZOLE 40 MG TABLET.DR PO SCH (08:31)
[2016-12-21] MEDS: ASPIRIN 81 MG TAB.CHEW PO SCH (08:32)
[2016-12-21] MEDS: NIFEdipine XL (30MG) 30 MG TAB PO SCH (08:32)
[2016-12-21] MEDS: HEPARIN SODIUM, PORCINE 5000 UNITS/1 ML VIAL SQ SCH ×2 (08:35→22:05)
[2016-12-21] MEDS: HYDROCODONE/APAP 5/325MG 1 EACH TABLET PO PRN (10:04)
--- NOTE | 2016-12-21 12:00 | NUR ---
MS RN NOTES PATIENT SEEN AND EVALUATED BY DR. OLGUIN ORDERS NOTED AND CARRIED OUT.
[2016-12-21 16:00] VITALS: BP 142/71
--- NOTE | 2016-12-21 19:10 | NUR ---
MS/RN NOTES RECEIVED PT. LYING IN BED. AWAKE, ALERT AND ORIENTED X3. BREATHING EVEN AND UNLABORED ON 3LPM O2 VIA NC. NO SOB, RESPIRATORY DISTRESS OR COMPLAINTS OF PAIN AT THIS TIME. PT. WITH RIGHT WRIST 20 GAUGE IV HEPLOCK PRESENT, PATENT AND INTACT. BED IN LOWEST POSITION, CALL LIGHT WITHIN REACH, WILL CONTINUE TO MONITOR.
--- NOTE | 2016-12-21 19:30 | NUR ---
MS RN NOTES PATIENT IN BED RESTING NO SOB OR ACUTE DISTRESS NOTED. ALL DUE MEDICATIONS GIVEN. ALL NEEDS MET. WILL ENDORSE TO PM SHIFT SABINA.
--- NOTE | 2016-12-21 19:45 | NUR ---
MS/RN NOTES CHARGE NURSE ROCK SPOKE WITH DR. OLGUIN TO CLARIFY PT. MED RECON. PT. DISCHARGE MED RECON NOT COMPLETED IN THE COMPUTER. PER DR. OLGUIN: PT. TO CONTINUE ALL MEDS EXCEPT IV MEDS. MD WILL F/U WITH PT. AT [facility]. WILL CARRY OUT ORDER. WILL CONTINUE TO MONITOR.
[2016-12-21 20:00] VITALS: BP 146/74
--- NOTE | 2016-12-21 20:05 | NUR ---
MS/RN NOTES EMT ARRIVED AND UNABLE TO TRANSPORT PT. [facility] DUE TO PT. SIZE. CHARGE NURSE DALE NOTIFIED AND AWARE. WILL COMMUNICATE WITH CASE MANAGEMENT TO FACILITATE DISCHARGE. WILL CONTINUE TO MONITOR.
--- NOTE | 2016-12-21 20:25 | NUR ---
MS/RN NOTES CALLED [facility] AND GAVE REPORT TO ERICA. GUNDERSON IN STABLE CONDITION. WILL CONTINUE TO MONITOR.
--- NOTE | 2016-12-21 20:39 | NUR ---
MS/RN NOTES SPOKE WITH [facility], SHE WAS ABLE TO FIND ANOTHER EMT COMPANY TO TRANSPORT PT. [facility]. EMT ETA 15-20 MIN. PT. WILL CONTINUE TO MONITOR.
--- NOTE | 2016-12-21 21:40 | NUR ---
MS/RN NOTES PT. EXIT CARE AND BELONGINGS LIST COMPLETED, SIGNED AND PLACED IN CHART. PT. MEDICATIONS RETRIEVED FROM PHARMACY AND PROVIDED TO PT. PT. CONTINUES TO REFUSE FLU VACCINE. PT. GIVEN DISCHARGE INSTRUCTIONS AND VERBALIZED UNDERSTANDING. STILL WAITING FOR EMT PICKUP. WILL CONTINUE TO MONITOR.
--- NOTE | 2016-12-21 22:05 | NUR ---
MS/RN NOTES EMT ARRIVED AND PT. BP ELEVATED 176/82 HR 75 RR 28. PT. IS ANXIOUS ABOUT BEING TRANSFERRED. EDUCATED PT. ABOUT DEEP BREATHING TECHNIQUES. PT. RR NOW 24. PT. DENIES SOB. WILL ADMINISTER TO PT. 2100 BP MEDICATION ORDERED.
[2016-12-21] MEDS: hydrALAZINE HCL 25 MG TABLET PO PRN (22:10)
--- NOTE | 2016-12-21 22:10 | NUR ---
MS/RN NOTES ADMINISTERED TO PT. 2100 HEPARIN, HYDRALAZINE 100 MG PO ORDERED AND ADMINISTERED TO PT. ADDITIONAL 25 MG HYDRALAZINE PO PRN SBP > 160. PT. CURRENT BP: 165/75 HR 76 RR24. NOTIFIED [facility] SPOKE WITH JANET. SHE STATED THEY DONT WANT TO ACCEPT THE PT. WITH ELEVATED BP. INFORMED HER PT. HAS HISTORY OF HTN, BP MEDS GIVEN ORDERED. PER JANET: RECHECK BP IN 15 MIN. IF VITAL SIGNS STABLE THEY WILL ACCEPT PT. FOR TRANSFER. WILL RE-ASSESS PT. BP AND NOTIFY [facility]. WILL CONTINUE TO MONITOR.
--- NOTE | 2016-12-21 22:25 | NUR ---
MS/RN NOTES PT. BP 162/79 HR 73 RR 24. ATTEMPTED TO NOTIFY [facility] ABOUT PT. CURRENT VITALS. BP REMAINS ELEVATED BUT TRENDING DOWN. MULTIPLE PHONE CALLS MADE, UNABLE TO GET A HOLD OF [facility]. CHARGE NURSE AWARE. WILL CONTINUE TO MONITOR.
--- NOTE | 2016-12-21 23:43 | NUR ---
MS/RN NOTES PT. IS STABLE. CURRENT BP IS 162/74 HR 83. RR 24. PT. DENIES ANY PAIN OR SOB. WILL CONTINUE TO MONITOR. NOTIFIED MD OCLLINS UNABLE TO TRANSFER PT. AT THIS TIME. [facility] NOT ANSWERING PHONE. ATTEMPTED TO CONTACT FACILITY OVER [address] COLLINS CALL EMT AND HAVE THEM TRANSPORT PT. TO [facility] THEY ARE EXPECTING THE PT. WILL CONTINUE TO MONITOR PT.
[2016-12-22] MEDS ORDERED: FUROSEMIDE 40 MG/4 ML VIAL ONE (00:39)
--- NOTE | 2016-12-22 00:42 | NUR ---
MS/RN NOTES CALLED [facility] TO NOTIFY DR. COLLINS OF PT. UPDATED VITALS, STILL UNABLE TO REACH [facility]. PT. BP 158/78. HR 74. RR 25-26 AT REST. PT. BECOMES VISIBLY WINDED WHEN TALKING AND REPOSITIONING IN BED. PT. DENIES SOB. LUNG SOUNDS CLEAR TO AUSCULTATION. PER DR. COLLINS NEW ORDERS: LASIX 40MG IV PUSH X1 NOW. WILL KEEP PT. OVERNIGHT TO MONITOR. WILL CARRY OUT ORDERS. WILL CONTINUE TO MONITOR.
[2016-12-22] MEDS ORDERED: FUROSEMIDE 40 MG/4 ML VIAL IV ONE (01:00)
[2016-12-22] MEDS ORDERED: IV NS 0.9% 100 ML IV ONE (01:20)
[2016-12-22] MEDS: CEFTRIAXONE 1 G in IV D5W 50 ML IV SCH (01:26)
--- NOTE | 2016-12-22 01:40 | NUR ---
MS/RN NOTES PT. LYING IN BED RESTING. NO SOB, RESPIRATORY DISTRESS OR S/S OF PAIN NOTED. PT. RR 20-22. PT. APPEARS COMFORTABLE AT THE MOMENT. WILL CONTINUE TO MONITOR FOR CHANGES.
[2016-12-22] MEDS: hydrALAZINE HCL 25 MG TABLET PO SCH ×2 (05:10→13:06)
--- NOTE | 2016-12-22 07:00 | NUR ---
MS/RN NOTES PT. LYING IN BED RESTING. BREATHING EVEN AND UNLABORED ON 3LPM O2 VIA NC. NO SOB, RESPIRATORY DISTRESS OR PAIN NOTED AT THIS TIME. PT. WITH RIGHT FOREARM 22 GAUGE IV HEPLOCK PRESENT, PATENT AND INTACT. PT. TURNED AND REPOSITIONED Q2H AND NEEDED THROUGHOUT SHIFT. ALL PT. NEEDS MET. BED IN LOWEST POSITION, CALL LIGHT WITHIN REACH, WILL ENDORSE TO DAYSHIFT NURSE FOR CONTINUITY OF CARE.
--- NOTE | 2016-12-22 07:30 | NUR ---
received pt. alert and oriented x3.vs stable.no distress,no complaints.dr. cuellar informed that pt. was not discharged yesterday as planned. in to see pt.
[2016-12-22 08:00] VITALS: BP 160/74
[2016-12-22] MEDS: NIFEdipine XL (30MG) 30 MG TAB PO SCH (08:41)
[2016-12-22] MEDS: DOXAZOSIN MESYLATE (1 MG) 1 MG TABLET PO SCH (08:41)
[2016-12-22] MEDS: ISOSORBIDE DINITRATE (20MG) 20 MG TABLET PO SCH (08:42)
[2016-12-22] MEDS: PANTOPRAZOLE 40 MG TABLET.DR PO SCH (08:42)
[2016-12-22] MEDS: ASPIRIN 81 MG TAB.CHEW PO SCH (08:42)
[2016-12-22] MEDS: HEPARIN SODIUM, PORCINE 5000 UNITS/1 ML VIAL SQ SCH (08:44)
[2016-12-22] MEDS: NEOMY SULF/BACITRAC ZN/POLY 15 GM TUBE TP SCH (08:47)
--- NOTE | 2016-12-22 11:05 | NUR ---
report called to nurse silva at facility.
--- NOTE | 2016-12-22 11:30 | NUR ---
pt,s mother and friend in to visit,mom took pt,s med bottles with her.
--- NOTE | 2016-12-22 12:00 | NUR ---
discharge photos not done as completed less than 24 hrs ago.
--- NOTE | 2016-12-22 13:00 | NUR ---
all dc papers signed,including belonging sheet.hep lock out.
[2016-12-22 13:06] VITALS: BP 149/72
--- NOTE | 2016-12-22 13:42 | NUR ---
delivery route driver of amb. here and given report.aware to keep hob elevated due to sob,pt taken via ambulance to facility.
[2016-12-23] MEDS ORDERED: NIFEdipine XL (30MG) 30 MG TAB PO SCH (09:00)
== END 2016-12-22 13:45 | DRG 64 ==
LOC: ER 18:17 → TELE 20:47 → MED 12-16 11:03
PROVIDERS: ADMIT Internal Medicine; ATTEND Internal Medicine
DX: I63.9 Cerebral infarction, unspecified (principal); I21.4 Non-ST elevation (NSTEMI) myocardial infarction; I50.43 Acute on chronic combined systolic (congestive) and diastolic (congestive) heart failure; E43 Unspecified severe protein-calorie malnutrition; I13.0 Hypertensive heart and chronic kidney disease with heart failure and stage 1 through stage 4 chronic kidney disease, or unspecified chronic kidney disease; N17.9 Acute kidney failure, unspecified; N39.0 Urinary tract infection, site not specified; N18.4 Chronic kidney disease, stage 4 (severe); Z86.73 Personal history of transient ischemic attack (TIA), and cerebral infarction without residual deficits; I16.0 Hypertensive urgency; Z68.38 Body mass index [BMI] 38.0-38.9, adult; D64.9 Anemia, unspecified; E66.9 Obesity, unspecified; E83.42 Hypomagnesemia; E87.6 Hypokalemia; I27.2 Other secondary pulmonary hypertension; R74.0 Nonspecific elevation of levels of transaminase and lactic acid dehydrogenase [LDH]; L98.9 Disorder of the skin and subcutaneous tissue, unspecified; E88.09 Other disorders of plasma-protein metabolism, not elsewhere classified; E83.9 Disorder of mineral metabolism, unspecified; M48.06 Spinal stenosis, lumbar region; E80.6 Other disorders of bilirubin metabolism; I34.0 Nonrheumatic mitral (valve) insufficiency; D72.829 Elevated white blood cell count, unspecified; R16.2 Hepatomegaly with splenomegaly, not elsewhere classified; N28.1 Cyst of kidney, acquired; B95.1 Streptococcus, group B, as the cause of diseases classified elsewhere
CPT/HCPCS: 36415; 70450-TC; 71010-TC; 72131-TC; 73700-TC; 76700-TC; 80048-TC; 80053-TC; 80061-TC; 80076-TC; 81000-TC; 82306; 82550-TC; 82570-TC; 82652; 82962-TC; 83735-TC; 83880; 83970; 84100-TC; 84155; 84155-TC; 84165; 84300-TC; 84439-TC; 84443-TC; 84484-TC; 85025-TC; 85730-TC; 87040-TC; 87081-TC; 87086-TC; 93307-TC; 93880-TC; 94799-TC; 97001-TC; 97110-TC; 97530-TC; A4606; J0696; J1644; J1940; J3475; J3480; J3490; J7030; J7050; J7060; Z7610

== ENCOUNTER 2017-04-08 11:50 | Emergency (ER) | payer OTHER ==
[~2017-04-08] VITALS: Ht 188 cm; Wt 102.1 kg
[~2017-04-08 11:50] MED LIST: AMLO5TAB2 PO
[2017-04-08] MEDS ORDERED: IV NS 0.9% 500 ML BAG IV ONE (12:30)
--- NOTE | 2017-04-08 12:30 | NUR ---
PT CAME IN SENT BY PMD FOR EVALUATION OF KIDNEYS. DENIES OTHER SYMPTOMS. NAD NOTED. A/A/O. VSS. SEEN BY MD FOR EVAL. SAFETY AND COMFORT MEASURES PROVIDED. WILL MONITOR.
[2017-04-08] MEDS ORDERED: IV SET PRIMARY 1 EA INFUS.SET MC ONE (12:32)
[2017-04-08] MEDS ORDERED: IV NS 0.9% 500 ML IV ONE (12:32)
[2017-04-08 12:37] LABS: BASOPHILS # (AUTO) 0.2 /CMM (0.0-0.2); BASOPHILS % (AUTO) 1.5 % (0.0-2.0); EOSINOPHILS # (AUTO) 0.4 /CMM (0.0-0.7); EOSINOPHILS % (AUTO) 2.9 % (0.0-6.0); HEMATOCRIT 42 % (39-51); HEMOGLOBIN 13.6 g/dL (13.5-17.5); LYMPHOCYTES # (AUTO) 1.2 /CMM (0.8-4.8); LYMPHOCYTES % (AUTO) 9.9 % (20.0-44.0); MEAN CORPUSCULAR HEMOGLOBIN 27 PG (26.0-33.0); MEAN CORPUSCULAR HGB CONC 32 g/dl (31.0-36.0); MEAN CORPUSCULAR VOLUME 85 fL (80-96); MONOCYTES # (AUTO) 0.6 /CMM (0.1-1.30); MONOCYTES % (AUTO) 5.2 % (2.0-12.0); NEUTROPHILS # (AUTO) 9.9 /CMM (1.8-8.9); NEUTROPHILS % (AUTO) 80.5 % (43.0-81.0); PLATELET COUNT (AUTO) 338 /CMM (150-450); RDW COEFFICIENT OF VARIATION 15.4 (11.5-15.0); RED BLOOD CELL COUNT(AUTO) 4.97 MIL/uL (4.5-6.0); WHITE BLOOD COUNT (AUTO) 12.3 K/uL (4.3-11.0)
[2017-04-08 12:47] LABS: CALCIUM, SERUM 9.2 mg/dL (8.5-10.1); CARBON DIOXIDE 22 mmol/L (21-32); CHLORIDE 106 mmol/L (98-107); CREATININE 3.9 mg/dL (0.6-1.3); GFR 16 mL/min (>60); GLUCOSE 93 mg/dL (74-106); POTASSIUM 4.5 mmol/L (3.5-5.1); SODIUM SERUM 138 mmol/L (136-145); UREA NITROGEN, BLOOD 55 mg/dL (7-18)
[2017-04-08 12:51] LABS: INR 1.02 (0.87-1.13); PROTHROMBIN TIME 10.6 SECS (9.5-12.7)
[2017-04-08 12:56] LABS: TROPONIN I < 0.017 ng/mL (0.00-0.056)
--- NOTE | 2017-04-08 13:47 | NUR ---
PAGED DR Yuli ÁLVAREZ
--- NOTE | 2017-04-08 14:10 | NUR ---
IV removed. Catheter intact and site benign. Pressure and 4x4 applied to site. No bleeding noted.
--- NOTE | 2017-04-08 14:25 | NUR ---
Patient discharged to home in stable condition. Written and verbal after care instructions given. Patient verbalizes understanding of instruction.
[2017-04-08 14:26] VITALS: BP 126/69
== END 2017-04-08 14:26 | disposition home or self-care (01) ==
LOC: ER 11:52
DX: I13.0 Hypertensive heart and chronic kidney disease with heart failure and stage 1 through stage 4 chronic kidney disease, or unspecified chronic kidney disease (principal); N18.9 Chronic kidney disease, unspecified; I50.9 Heart failure, unspecified; Z86.73 Personal history of transient ischemic attack (TIA), and cerebral infarction without residual deficits
CPT/HCPCS: 36415; 71010-TC; 80048-TC; 84484-TC; 85025-TC; 85730-TC; A4606; J7040; Z7610

== ENCOUNTER 2017-10-27 15:59 | Inpatient (IN) | payer OTHER ==
[~2017-10-27] VITALS: Ht 188 cm; Wt 125.8 kg
--- NOTE | 2017-10-27 16:20 | NUR ---
[facility] TO ER; C/O PROGRESSIVE BLE WEAKNESS; WORST FOR ONE WEEK. SEEN BY MD FOR MENG. SAFETY AND COMFORT MEASURES PROVIDED. WILL MONITOR.
[2017-10-27] MEDS ORDERED: IV NS 0.9% 1,000 ML BAG IV ONE ×2 (16:30→20:00)
[2017-10-27] MEDS ORDERED: ONDANSETRON HCL/PF 4 MG/2 ML VIAL IVP ONE (16:30)
[2017-10-27] MEDS ORDERED: FAMOTIDINE/PF INJ 20 MG/2 ML VIAL IV ONE ×2 (16:30→16:39)
--- NOTE | 2017-10-27 16:30 | NUR ---
IV ACCESS STARTED. BLOOD DRAWN FOR LABSD.
[2017-10-27 16:35] LABS: BASOPHILS # (AUTO) 0.4 /CMM (0.0-0.2); BASOPHILS % (AUTO) 1.2 % (0.0-2.0); EOSINOPHILS # (AUTO) 0.2 /CMM (0.0-0.7); EOSINOPHILS % (AUTO) 0.8 % (0.0-6.0); HEMATOCRIT 39 % (39-51); HEMOGLOBIN 12.5 g/dL (13.5-17.5); LYMPHOCYTES # (AUTO) 1.1 /CMM (0.8-4.8); LYMPHOCYTES % (AUTO) 3.5 % (20.0-44.0); MEAN CORPUSCULAR HEMOGLOBIN 28 PG (26.0-33.0); MEAN CORPUSCULAR HGB CONC 32 g/dl (31.0-36.0); MEAN CORPUSCULAR VOLUME 88 fL (80-96); MONOCYTES # (AUTO) 1.3 /CMM (0.1-1.30); MONOCYTES % (AUTO) 4.2 % (2.0-12.0); NEUTROPHILS # (AUTO) 27.4 /CMM (1.8-8.9); NEUTROPHILS % (AUTO) 90.3 % (43.0-81.0); PLATELET COUNT (AUTO) 359 /CMM (150-450); RDW COEFFICIENT OF VARIATION 13.4 (11.5-15.0); RED BLOOD CELL COUNT(AUTO) 4.48 MIL/uL (4.5-6.0)
[2017-10-27 16:37] LABS: WHITE BLOOD COUNT (AUTO) 30.4 K/uL (4.3-11.0)
[2017-10-27] MEDS ORDERED: ONDANSETRON HCL/PF 4 MG/2 ML VIAL ONE (16:39)
[2017-10-27 16:51] LABS: ALANINE AMINOTRANSFERASE 25 U/L (12-78); ALBUMIN 2.5 g/dL (3.4-5.0); ALKALINE PHOSPHATASE 275 U/L (46-116); ASPARTATE AMINOTRANSFERASE 23 U/L (15-37); BILIRUBIN,DIRECT 0.2 mg/dL (0.0-0.2); BILIRUBIN,TOTAL 0.6 mg/dL (0.2-1.0); CALCIUM, SERUM 9.1 mg/dL (8.5-10.1); CARBON DIOXIDE 19 mmol/L (21-32); CHLORIDE 96 mmol/L (98-107); GLUCOSE 149 mg/dL (74-106); LIPASE 147 U/L (73-393); POTASSIUM 4.6 mmol/L (3.5-5.1); SODIUM SERUM 133 mmol/L (136-145); TOTAL PROTEIN, SERUM 7.9 g/dL (6.4-8.2)
[2017-10-27 16:53] LABS: CREATININE 8.5 mg/dL (0.6-1.3); TROPONIN I < 0.017 ng/mL (0.00-0.056); UREA NITROGEN, BLOOD 106 mg/dL (7-18)
[2017-10-27 16:56] LABS: PROTHROMBIN TIME 10.4 SECS (9.5-12.7)
--- NOTE | 2017-10-27 17:20 | NUR ---
Patient is resting comfortably in bed with eyes closed. Easily aroused. VSS
[2017-10-27] MEDS ORDERED: PIPERACILLIN /TAZOBACTAM 3.375 G in IV D5W 50 ML IV ONE (18:00)
--- NOTE | 2017-10-27 18:00 | NUR ---
PT MEDICATED ORDERED.
[2017-10-27] MEDS ORDERED: ISOS20TA8 PO (18:01)
[2017-10-27] MEDS ORDERED: LOSA50TA21 PO (18:01)
[2017-10-27] MEDS ORDERED: FURO40TA5 PO (18:01)
[2017-10-27] MEDS ORDERED: DOXA1TAB2 PO (18:01)
[2017-10-27] MEDS ORDERED: ASPI81TA2 PO (18:01)
[2017-10-27 18:34] LABS: APPEARANCE,URINE CLOUDY (CLEAR); COLOR,URINE YELLOW (YELLOW)
[2017-10-27 18:35] LABS: BLOOD, URINE 3+ Ery/uL (NEGATIVE); PROTEIN,URINE 2+ mg/dl (NEGATIVE); UGLUCOSE NEGATIVE (NEGATIVE)
[2017-10-27 18:36] LABS: BILIRUBIN,URINE NEGATIVE (NEGATIVE); KETONES,URINE NEGATIVE (NEGATIVE); LEUKOCYTE ESTERASE ,URINE 3+ (NEGATIVE); NITRITE, URINE NEGATIVE (NEGATIVE); UROBILINOGEN,URINE 0.2 EU/dL (0.2)
[2017-10-27 18:50] LABS: BACTERIA,URINE 4+ /HPF (None Seen); RBC,URINE 51-80 /HPF (0-2); SQUAMOUS EPITHELIAL CELL,UR 0-2 /HPF (None Seen); WBC,URINE TOO NUMEROUS TO COUN /HPF (0-3)
[2017-10-27] MEDS ORDERED: VANCOMYCIN 1 GM in IV D5W 250 ML IV ONE (19:00)
--- NOTE | 2017-10-27 19:24 | NUR ---
ENDORSED TO ELVIN GALICIA FOR SABINA.
--- NOTE | 2017-10-27 20:02 | NUR ---
REPORT GIVEN TO NURY GALICIA FOR ADMISSION AND SABINA.
--- NOTE | 2017-10-27 20:20 | NUR ---
TELE/RN OPENING NOTES PT RECEIVED TO UNIT FROM ER VIA VIVIAN. A/OX4. ON ROOM AIR, BREATHING EVEN AND UNLABORED. DENIES PAIN AND SOB. IN NO APPARENT DISTRESS. IV TO LEFT AC PATENT AND INTACT INFUSING VANCOMYCIN AT THIS TIME. ORIENTED PT TO ROOM AND CALL LIGHT. BED IN LOW/LOCKED POSITION WITH CALL LIGHT IN REACH. SIDE RAILS UPX2. WILL CONTINUE TO MONITOR
[2017-10-27] MEDS: DIAZEPAM 5 MG/ML 2 ML DISP.SYRIN IJ PRN ×2 (20:29→22:25)
[2017-10-27] MEDS ORDERED: Z GUARD REMEDY 2 OZ OINT TP PRN (20:30)
[2017-10-27] MEDS ORDERED: CEFTRIAXONE 1 G in IV D5W 50 ML IV SCH (20:30)
[2017-10-27] MEDS ORDERED: CYCLOBENZAPRINE 10 MG TABLET PO PRN (20:30)
[2017-10-27] MEDS ORDERED: ACETAMINOPHEN 325 MG TABLET PO PRN (20:30)
[2017-10-27] MEDS ORDERED: ONDANSETRON HCL/PF 4 MG/2 ML VIAL IVP PRN (20:30)
[2017-10-27] MEDS ORDERED: ZOLPIDEM TARTRATE 5 MG TABLET PO PRN (20:30)
--- NOTE | 2017-10-27 20:30 | NUR ---
Transferred patient to tele bed 320 via als protocol, no incident noted. Endorsed to Geetha rushing.
--- NOTE | 2017-10-27 20:40 | NUR ---
TELE/RN NOTES PT PLACED ON TELE MONITOR SHOWING SINUS RHYTHM WITH BBB, HR=87. ER NURSE, ELVIN ENDORSED ONE TIME VALIUM ORDER FOR RESTLESS LEG. WILL CARRY OUT.
[2017-10-27 20:45] VITALS: BP 117/67
--- NOTE | 2017-10-27 21:00 | NUR ---
TELE/RN NOTES PT REFUSING PICTURES/BODY CHECK. STATES THAT HE DOES NOT HAVE OPEN WOUNDS
[2017-10-27 21:06] LABS: BAND % (MANUAL) 14 % (0.0-5.0); LYMPHOCYTES % (MANUAL) 3 % (16-48); MONOCYTES % (MANUAL) 8 % (0-11.0); NEUTROPHILS % (MANUAL) 75 (42-76)
[2017-10-27] MEDS ORDERED: CEFTRIAXONE 1 G VIAL ONE (22:06)
[2017-10-27] MEDS: IV NS 0.9% 1,000 ML IV PRN (22:23)
[2017-10-28] VITALS: BP 142/68
[2017-10-28] MEDS ORDERED: CYCLOBENZAPRINE 10 MG TABLET ONE (00:49)
[2017-10-28 04:25] VITALS: BP 146/61
[2017-10-28] MEDS ORDERED: MORPHINE SULFATE INJ 2 MG/ML DISP.SYRIN ONE (04:32)
[2017-10-28] MEDS: MORPHINE SULFATE INJ 2 MG/ML DISP.SYRIN IV PRN ×3 (04:50→23:19)
--- NOTE | 2017-10-28 05:24 | NUR ---
MS/RN NOTES PT STILL WITH COMPLAINTS OF RESTLESS LEG ALTHOUGH VALIUM AND FLEXERIL GIVEN. ADMINISTERED MORPHINE ORDERED. WILL MONITOR FOR EFFECTIVENESS.
[2017-10-28 07:15] VITALS: BP 164/67
--- NOTE | 2017-10-28 07:20 | NUR ---
RN NOTES PT IS RESTING IN BED COMFORTABLY ON RA, RESPIRATIONS ARE EVEN AND UNLABORED. IV ON LAC INTACT AND RUNNING NS @ 75ML/HR. SAFETY MEASURES ARE IN PLACE, CALL LIGHT IS IN REACH. WILL CONTINUE TO MONITOR.
--- NOTE | 2017-10-28 07:30 | NUR ---
TELE/RN CLOSING NOTES PT AWAKE, A/OX4. ON ROOM AIR, BREATHING EVEN AND UNLABORED. NO APPARENT SIGNS OF SOB OR DISTRESS. STILL COMPLAINING OF RESTLESS LEG. PRN MORPHINE INEFFECTIVE. ON TELE MONITOR SHOWING SINUS RHYTHM WITH BBB, HR=87. IV TO LAC PATENT AND INTACT RUNNING IVF ORDERED. TRIED TO MAKE PT COMFORTABLE DURING SHIFT. PT EASILY FRUSTRATED THIS AM STATING THAT "HIS BODY IS SO WEAK AND JUST WANTS TO GO HOME". EMOTIONAL SUPPORT PROVIDED. DICKENS IN PLACE AND DRAINING TO GRAVITY, CLOUDY YELLOW URINE. PT REFUSING TO SEND HOME MEDICATIONS DOWN TO PHARMACY BECAUSE "LAST TIME HE WAS HERE, THEY WERE NEVER SENT BACK HOME WITH HIM". HOME MEDS PLACED IN MED BAG AND SEALED, LEFT AT BEDSIDE. HAD PT SIGN FORM WITH LIST OF MEDICATIONS AND THAT HE WANTS TO KEEP THEM AT BEDSIDE. FILED IN THE CHART. BED REMAINS IN LOW/LOCKED POSITION WITH CALL LIGHT IN REACH AND SIDE RAILS UPX2. ENDORSED TO AM SHIFT SABINA.
[2017-10-28 07:33] LABS: BASOPHILS # (AUTO) 0.1 /CMM (0.0-0.2); BASOPHILS % (AUTO) 0.4 % (0.0-2.0); EOSINOPHILS # (AUTO) 0.4 /CMM (0.0-0.7); EOSINOPHILS % (AUTO) 1.5 % (0.0-6.0); HEMATOCRIT 36 % (39-51); HEMOGLOBIN 11.7 g/dL (13.5-17.5); LYMPHOCYTES % (AUTO) 3.7 % (20.0-44.0); MEAN CORPUSCULAR HEMOGLOBIN 29 PG (26.0-33.0); MEAN CORPUSCULAR HGB CONC 33 g/dl (31.0-36.0); MEAN CORPUSCULAR VOLUME 89 fL (80-96); MONOCYTES # (AUTO) 1.4 /CMM (0.1-1.30); MONOCYTES % (AUTO) 5.3 % (2.0-12.0); NEUTROPHILS # (AUTO) 23.9 /CMM (1.8-8.9); NEUTROPHILS % (AUTO) 89.1 % (43.0-81.0); PLATELET COUNT (AUTO) 346 /CMM (150-450); RDW COEFFICIENT OF VARIATION 14.5 (11.5-15.0); RED BLOOD CELL COUNT(AUTO) 4.03 MIL/uL (4.5-6.0); WHITE BLOOD COUNT (AUTO) 26.8 K/uL (4.3-11.0)
[2017-10-28 08:00] VITALS: BP 138/68
[2017-10-28 08:00] LABS: ALBUMIN 2.1 g/dL (3.4-5.0); BILIRUBIN,TOTAL 0.5 mg/dL (0.2-1.0); CALCIUM, SERUM 8.2 mg/dL (8.5-10.1); MAGNESIUM 1.8 mg/dL (1.8-2.4); PHOSPHORUS 4.4 mg/dL (2.5-4.9); POTASSIUM 4.1 mmol/L (3.5-5.1); TOTAL PROTEIN, SERUM 6.9 g/dL (6.4-8.2)
[2017-10-28 08:03] LABS: THYROID STIMULATING HORMONE 0.772 uIU/mL (0.358-3.74)
[2017-10-28 08:07] LABS: CREATININE 7.9 mg/dL (0.6-1.3)
[2017-10-28] MEDS: PANTOPRAZOLE 40 MG TABLET.DR PO SCH (08:52)
[2017-10-28] MEDS: ASPIRIN 81 MG TAB.CHEW PO SCH (08:53)
[2017-10-28] MEDS: DOXAZOSIN MESYLATE (1 MG) 1 MG TABLET PO SCH (08:53)
[2017-10-28] MEDS: ISOSORBIDE DINITRATE (20MG) 20 MG TABLET PO SCH (08:53)
[2017-10-28] MEDS: AMLODIPINE BESYLATE 5 MG TABLET PO SCH (08:53)
[2017-10-28 09:02] LABS: BAND % (MANUAL) 12 % (0.0-5.0); LYMPHOCYTES % (MANUAL) 5 % (16-48); MONOCYTES % (MANUAL) 5 % (0-11.0); NEUTROPHILS % (MANUAL) 78 (42-76)
[2017-10-28] MEDS ORDERED: FEE PK DOSING 1 MIN EA MC ONE (09:07)
--- NOTE | 2017-10-28 12:28 | NUR ---
Social Service Consult requested by Jennifer Mcginnis ACNShireen for decreased mobility, hx of falls, and readmission score of 4. grove worker met with the patient bedside. Patient is a 62 year old male, friendly in approach. He is alert and oriented x3 and was able to respond to questions posed by the social security specialist. Patient states that he lives alone at [id number] [place] [id number]; and states that his neighbors and his friend Henrry frequently check in on him. Patient stated that he was feeling weak from a stroke that he had one year ago and this is the reason for current admission. grove worker spoke to the patient about placement and patient is refusing placement at this time. He states that he is comfortable living at home. He states that he attends physical therapy 1-2x/week at [facility] ([address], [place] [address] ) He notes that he gets SSI per month ($1200/month). Patient reports that he has a walker that he uses. Patient denying social service resources/referrals at this time. grove worker spoke to the patient's nurse Carrera and informed of this consult. grove worker to remain available if other social service needs arise.
[2017-10-28] MEDS: IV NS 0.9% 1,000 ML IV PRN (13:43)
[2017-10-28] MEDS ORDERED: DEXTROSE 50%-WATER 50 ML DISP.SYRIN IV PRN (14:00)
[2017-10-28] MEDS ORDERED: LORAZEPAM 0.5 MG TABLET PO PRN (14:00)
[2017-10-28] MEDS ORDERED: SODIUM BICARBONATE 650 MG TABLET PO PRN (15:00)
[2017-10-28 16:00] VITALS: BP 145/64
[2017-10-28] MEDS: SODIUM BICARBONATE 650 MG TABLET PO SCH (17:29)
[2017-10-28] MEDS: ropiniROLE 0.5 MG TABLET PO SCH (17:29)
[2017-10-28] MEDS: BLOOD SUGAR DIAGNOSTIC 1 EACH STRIP IN SCH ×2 (17:30→21:47)
--- NOTE | 2017-10-28 18:42 | NUR ---
RN NOTES PT IS SLEEPING IN HIS BED ON RA, RESPIRATIONS ARE EVEN AND UNLABORED. IV ON LAC INTACT AND RUNNING NS @ 75ML/HR. DICKENS CATHETER IS IN PLACE AND DRAINING. ALL MEDS WERE GIVEN ORDERED. 1730 ACCUCHECK WAS 96, NO INSULIN COVERAGE NEEDED. SAFETY MEASURES ARE IN PLACE CALL LIGHT IS IN REACH. WILL ENDORSE TO DRIVER LICENSE EXAMINER RN FOR CONTINUITY OF CARE.
[2017-10-28 20:00] VITALS: BP 129/66
--- NOTE | 2017-10-28 20:00 | NUR ---
MS MAILING SPECIALIST NOTES PT SEEN IN BED RESTING WITH EYES CLOSED BUT AROUSES TO TO TOUCH. DENIES ANY PAIN OR ANY DISCOMFORT. HE JUST WANT TO REPOSITION HIM AND KEPT HIS ROOM WARM. IVF STILL INFUSING ON HIS LEFT AC PATENT AND INTACT. ON MRSA ISOLATION IMPLEMENTED AND OBSERVED. WILL CONTINUE TO MONITOR. PLACE CALL LIGHT AT REACH.
[2017-10-28] MEDS: MUPIROCIN OINT 2% 22 GM TUBE SCH (21:47)
--- NOTE | 2017-10-28 22:00 | NUR ---
LOGGING SUPERVISOR./NOTES ROUTINE MEDS GIVEN AND BLOOD SUGAR CHECKED DONE, 134, REFUSED TO HAVE INSULIN, NO SIGNS OF HYPO GLYCEMIA NOTED. WILL CONTINUE TO MONITOR. SNACKS SERVED.
[2017-10-28] MEDS: CEFTRIAXONE 1 G in IV D5W 50 ML IV SCH (23:18)
--- NOTE | 2017-10-28 23:21 | NUR ---
MANUFACTURING ENGINEER/NOTES PT IN BED COMPLAINING OF LOWER BACK PAIN, MORPHINE GIVEN BY ANOTHER NURSE RANCHO IVP ORDERED. ROCEPHIN IVP BAG ALSO HUNG ORDERED. KEPT HIM WARM AND COMFORTABLE AT ALL TIMES. WILL CONTINUE TO MONITOR. PLACE CALL LIGHT AT REACH.
--- NOTE | 2017-10-29 02:13 | NUR ---
SHALE PLANER OPERATOR HELPER/NOTES PT SLEEPING COMFORTABLY IN BED WITHOUT ANY ACUTE DISTRESS NOTED,. IVF STILL INFUSING. KEPT HIM WARM AND COMFORTABLE AT ALL TIMES. WILL CONTINUE TO MONITOR. PLACE CALL LIGHT AT REACH.
[2017-10-29] MEDS: IV NS 0.9% 1,000 ML IV PRN ×2 (05:59→23:53)
[2017-10-29] MEDS: PANTOPRAZOLE 40 MG TABLET.DR PO SCH (06:00)
[2017-10-29] MEDS: BLOOD SUGAR DIAGNOSTIC 1 EACH STRIP IN SCH ×4 (06:00→21:31)
--- NOTE | 2017-10-29 06:52 | NUR ---
MS ELECTRICAL DISCHARGE MACHINE OPERATOR CLOSING NOTES PT WOKE UP AND ASKING IF HE WANTS TO HAVE SPONGE BATH, REFUSED TO DO IT EVEN CHANGING HIS BEDDINGS. HE STATED " I'M OK ,I JUST WANT TO SLEEP MORE BUT THANK YOU FOR ALL YOUR HELPED". ROUTINE MED GIVEN AND BLOOD SUGAR CHECKED DONE 124, NO INSULIN NEEDED AT THIS TIME. NO SIGNS OF HYPO GLYCEMIA NOTED. IVF REMAINS INFUSING ON HIS LEFT AC, NO REDNESS NOTED. KEPT HIM WARM AND COMFORTABLE AT ALL TIMES. DICKENS TO GRAVITY AND DRAINING WELL. PLACE CALL LIGHT AT REACH. WILL CONTINUE TO MONITOR. AND ENDORSE TO AM NURSE FOR CONTINUITY OF CARE.
[2017-10-29 07:54] LABS: BASOPHILS % (AUTO) 0.1 % (0.0-2.0); EOSINOPHILS # (AUTO) 0.5 /CMM (0.0-0.7); EOSINOPHILS % (AUTO) 1.9 % (0.0-6.0); HEMATOCRIT 36 % (39-51); HEMOGLOBIN 11.8 g/dL (13.5-17.5); LYMPHOCYTES # (AUTO) 1.1 /CMM (0.8-4.8); LYMPHOCYTES % (AUTO) 3.9 % (20.0-44.0); MEAN CORPUSCULAR HEMOGLOBIN 29 PG (26.0-33.0); MEAN CORPUSCULAR HGB CONC 33 g/dl (31.0-36.0); MEAN CORPUSCULAR VOLUME 88 fL (80-96); MONOCYTES # (AUTO) 1.3 /CMM (0.1-1.30); MONOCYTES % (AUTO) 4.5 % (2.0-12.0); NEUTROPHILS # (AUTO) 24.9 /CMM (1.8-8.9); NEUTROPHILS % (AUTO) 89.6 % (43.0-81.0); PLATELET COUNT (AUTO) 376 /CMM (150-450); RDW COEFFICIENT OF VARIATION 14.4 (11.5-15.0); RED BLOOD CELL COUNT(AUTO) 4.05 MIL/uL (4.5-6.0); WHITE BLOOD COUNT (AUTO) 27.8 K/uL (4.3-11.0)
[2017-10-29 08:00] VITALS: BP 138/64
--- NOTE | 2017-10-29 08:00 | NUR ---
MS RN OPENING NOTES PATIENT IN BED EYES CLOSED, AROUSABLE , RESPONSIVE TO VERBAL STIMULI, HOB ELEVATED. NO SOB NOTED IN RA. RESPIRATIONS EVEN AND UNLABORED. IV ON LAC INTACT AND RUNNING NS @ 75ML/HR, NO REDNESS, NO S/SX OF INFILTRATION NOTED. DICKENS CATHETER IS IN PLACE AND DRAINING YELLOW URINE NOTED. SAFETY MEASURES ARE IN PLACE. CALL LIGHT PLACED WITHIN REACH. WILL CONTINUE TO MONITOR ACCORDINGLY.
[2017-10-29 08:29] LABS: CALCIUM, SERUM 8.7 mg/dL (8.5-10.1); POTASSIUM 4.2 mmol/L (3.5-5.1)
[2017-10-29 08:32] LABS: CREATININE 7.9 mg/dL (0.6-1.3)
[2017-10-29] MEDS: MUPIROCIN OINT 2% 22 GM TUBE SCH ×3 (09:49→21:30)
[2017-10-29] MEDS: ASPIRIN 81 MG TAB.CHEW PO SCH (09:50)
[2017-10-29] MEDS: DOXAZOSIN MESYLATE (1 MG) 1 MG TABLET PO SCH (09:51)
[2017-10-29] MEDS: ISOSORBIDE DINITRATE (20MG) 20 MG TABLET PO SCH (09:52)
[2017-10-29] MEDS: AMLODIPINE BESYLATE 5 MG TABLET PO SCH (09:52)
[2017-10-29] MEDS: SODIUM BICARBONATE 650 MG TABLET PO SCH ×2 (09:53→18:07)
--- NOTE | 2017-10-29 10:20 | NUR ---
RN NOTES SEEN BY ANNETTE WASHBURN AWARE OF BUN 98, CREA 7.9 RESULT, NO NEW ORDERS MADE. PER ANNETTE WASHBURN PATIENT NOT RECOMMENDED TO GO HOME YET, IF THE PATIENT WANTS TO GO HOME HE WILL GO AMA.
[2017-10-29 12:00] LABS: BAND % (MANUAL) 11 % (0.0-5.0); EOSINOPHILS % (MANUAL) 3 % (0-4); LYMPHOCYTES % (MANUAL) 3 % (16-48); MONOCYTES % (MANUAL) 4 % (0-11.0); NEUTROPHILS % (MANUAL) 79 (42-76)
[2017-10-29 16:00] VITALS: BP 164/75
[2017-10-29] MEDS: ropiniROLE 0.5 MG TABLET PO SCH (18:08)
--- NOTE | 2017-10-29 18:30 | NUR ---
MS RN CLOSING NOTES Patient in bed, awake, HOB elevated. No SOB noted, No sign of distress noted. Denied any pain. Refused BS checked before dinner, explained risk and benefits, No signs of hypo/hyperglycemia noted. Due medication given, no ASE noted. IVF remains infusing on LAC, No redness or s/sx of infiltration noted. Kept clean and comfortable at all times. Benitez catheter patent with yellow urine output. Call light placed within reach. Endorsed to customer marketing intern for the continuity of care.
--- NOTE | 2017-10-29 19:30 | NUR ---
MS ISAEL INITIAL NOTES RECEIVED REPORT FROM AM NURSE AND CHECKED PT . SEEN IN BED AWAKE LYING IN BED WITH IVF OF NS AT 75ML/HR INFUSING AT THIS TIME. DENIES ANY PAIN OR ANY DISCOMFORT. DICKENS TO GRAVITY AND DRAINING WELL. HELPED HIM TO REPOSITION AND KEPT HIM WARM AND COMFORTABLE AT ALL TIMES. PLACE CALL LIGHT AT REACH. ISOLATION PRECAUTION IMPLEMENTED AND OBSERVED. WILL CONTINUE TO MONITOR.
[2017-10-29 20:00] VITALS: BP 153/57
[2017-10-29 20:29] VITALS: BP 153/51
--- NOTE | 2017-10-29 21:31 | NUR ---
teja notes pt refused to have blood sugar checked at this time , he stated do it in the morning pls. no signs of hypo /hyper glycemia noted. he just want to rest more. ivf remain infusing. will continue to monitor. place call light at reach. Addendum: 10/30/17 at 0312 by HARLEEN CORNEJO LVN BACTROBAN DUPLICATE ORDERED. SCAN ALREADY
[2017-10-29] MEDS: CEFTRIAXONE 1 G in IV D5W 50 ML IV SCH (23:40)
--- NOTE | 2017-10-30 | NUR ---
COOK SUPERVISOR/NOTES PT REMAIN SLEEPING COMFORTABLY IN BED WITHOUT ANY ACUTE DISTRESS NOTED. IVF STILL INFUSING. ROCEPHINE IVP BAG HUNG BY ANOTHER NURSE. KEPT HIM WARM AND COMFORTABLE AT ALL TIMES. PLACE CALL LIGHT AT REACH.
[2017-10-30] MEDS: BLOOD SUGAR DIAGNOSTIC 1 EACH STRIP IN SCH ×4 (06:07→22:00)
[2017-10-30] MEDS: PANTOPRAZOLE 40 MG TABLET.DR PO SCH (06:07)
--- NOTE | 2017-10-30 06:47 | NUR ---
CASH VAN SALESPERSON/CLOSING NOTES PT BAKC TO REST AFTER MORNING CARE DONE . BLOOD SUGAR 131, PT REFUSED INSULIN , NO SIGNS OF HYPO GLYCEMIA NOTED. SLEPT WELL AND STABLE RANCHO THE NIGHT. ALL DUE MEDS GIVEN AND ALL NEEDS MET. IVF STILL INFUSING ON HIS LEFT ARM. REPOSITION HIM FOR COMFORT. DENIES ANY PAIN OR ANY DISCOMFORT. PLACE CALL LIGHT AT REACH. DICKENS TO GRAVITY. KEPT HIM WARM AND COMFORTABLE AT ALL TIMES. ENDORSE TO AM NURSE FOR CONTINUITY OF CARE.
--- NOTE | 2017-10-30 07:54 | NUR ---
MS RN OPENING NOTES PATIENT SLEEPING, AROUSABLE , RESPONSIVE TO VERBAL STIMULI, HOB ELEVATED. BED IN LOW POSITION, LOCKED. SIDERAILS UP X2. NO SOB NOTED IN RA. RESPIRATIONS EVEN AND UNLABORED. IV ON LAC INTACT AND RUNNING NS @ 75ML/HR, NO REDNESS, NO S/SX OF INFILTRATION NOTED. DICKENS CATHETER IS IN PLACE AND DRAINING YELLOW URINE NOTED. CALL LIGHT PLACED WITHIN REACH. WILL CONTINUE TO MONITOR ACCORDINGLY.
[2017-10-30 08:00] VITALS: BP 156/79
[2017-10-30] MEDS: ASPIRIN 81 MG TAB.CHEW PO SCH (08:43)
[2017-10-30] MEDS: DOXAZOSIN MESYLATE (1 MG) 1 MG TABLET PO SCH (08:43)
[2017-10-30] MEDS: SODIUM BICARBONATE 650 MG TABLET PO SCH ×2 (08:43→16:58)
[2017-10-30] MEDS: AMLODIPINE BESYLATE 5 MG TABLET PO SCH (08:44)
[2017-10-30] MEDS: ISOSORBIDE DINITRATE (20MG) 20 MG TABLET PO SCH (08:45)
[2017-10-30] MEDS: MUPIROCIN OINT 2% 22 GM TUBE SCH ×2 (08:48→21:40)
[2017-10-30 09:12] LABS: CALCIUM, SERUM 8.5 mg/dL (8.5-10.1); CREATININE 7.4 mg/dL (0.6-1.3); POTASSIUM 4.1 mmol/L (3.5-5.1)
[2017-10-30] MEDS: INSULIN REGULAR, HUMAN 100 UNIT/ML 3 ML VIAL SQ PRN (13:19)
[2017-10-30 16:00] VITALS: BP 154/69
[2017-10-30] MEDS: IV NS 0.9% 1,000 ML IV PRN (17:06)
[2017-10-30] MEDS: ropiniROLE 0.5 MG TABLET PO SCH (18:00)
[2017-10-30] MEDS ORDERED: VANCOMYCIN 1.25 GM in IV D5W 500 ML IV SCH (18:00)
--- NOTE | 2017-10-30 18:51 | NUR ---
MS RN CLOSING NOTES Patient in bed eys closed, arousable, verbally responsive, HOB elevated. No SOB noted, No sign of distress noted. Denied any pain at this time. Due medication given, no ASE noted. IVF remains infusing on LAC, No redness or s/sx of infiltration noted. Kept clean and comfortable at all times. Benitez catheter patent with yellow urine output. Turned and reposition every 2 hours. Call light placed within reach. Endorsed to wall washer for the continuity of care.
[2017-10-30 20:00] VITALS: BP 159/78
--- NOTE | 2017-10-30 20:00 | NUR ---
MS RESEARCH ARCHAEOLOGIST INITIAL NOTES SEEN PT IN BED RESTING WITH EYES CLOSED BUT AROUSES TO TOUCH, IVF NS AT 75ML/HR, NO SOB NOTED, DENIES ANY PAIN OR ANY DISCOMFORT. HE STATED JUST WANT OT REPOSITION HIM TO HIS LEFT SIDE. DICKENS TO GRAVITY WITH CLEAR YELLOW OUTPUT NOTED. KEPT HIM WARM AND COMFORTABLE AT ALL TIMES. PLACE CALL LIGHT AT REACH. WILL CONTINUE TO MONITOR.
--- NOTE | 2017-10-30 23:00 | NUR ---
BILINGUAL RESEARCH INTERVIEWER /NOTES PT REMAINS SLEEPING , BREATHING EVEN AND NON-LABORED, AROUSES TO TOUCH, STILL REFUSING BLOOD SUGAR CHECKED EVEN EXPLAINED TO HER WHY NEEDS TO CHECKED IT. HE STATED CAN YOU DO IT IN AM INSTEAD. WANTS TO SLEEP MORE'. WILL CONTINUE TO MONITOR.
[2017-10-30] MEDS: CEFTRIAXONE 1 G in IV D5W 50 ML IV SCH (23:53)
[2017-10-31 05:58] LABS: BASOPHILS % (AUTO) 0.1 % (0.0-2.0); EOSINOPHILS # (AUTO) 0.6 /CMM (0.0-0.7); EOSINOPHILS % (AUTO) 2.3 % (0.0-6.0); HEMATOCRIT 36 % (39-51); HEMOGLOBIN 11.9 g/dL (13.5-17.5); LYMPHOCYTES # (AUTO) 1.1 /CMM (0.8-4.8); LYMPHOCYTES % (AUTO) 4.2 % (20.0-44.0); MEAN CORPUSCULAR HEMOGLOBIN 29 PG (26.0-33.0); MEAN CORPUSCULAR HGB CONC 33 g/dl (31.0-36.0); MEAN CORPUSCULAR VOLUME 88 fL (80-96); NEUTROPHILS # (AUTO) 22.9 /CMM (1.8-8.9); NEUTROPHILS % (AUTO) 89.4 % (43.0-81.0); PLATELET COUNT (AUTO) 433 /CMM (150-450); RDW COEFFICIENT OF VARIATION 14.9 (11.5-15.0); RED BLOOD CELL COUNT(AUTO) 4.07 MIL/uL (4.5-6.0); WHITE BLOOD COUNT (AUTO) 25.6 K/uL (4.3-11.0)
[2017-10-31 06:16] LABS: CALCIUM, SERUM 8.7 mg/dL (8.5-10.1)
[2017-10-31] MEDS: BLOOD SUGAR DIAGNOSTIC 1 EACH STRIP IN SCH ×2 (06:26→12:47)
[2017-10-31] MEDS: PANTOPRAZOLE 40 MG TABLET.DR PO SCH (06:26)
[2017-10-31 07:03] LABS: BAND % (MANUAL) 2 % (0.0-5.0); EOSINOPHILS % (MANUAL) 1 % (0-4); LYMPHOCYTES % (MANUAL) 3 % (16-48); MONOCYTES % (MANUAL) 6 % (0-11.0); NEUTROPHILS % (MANUAL) 88 (42-76)
--- NOTE | 2017-10-31 07:20 | NUR ---
MAINTENANCE CRAFTSMAN/CLOSING NOTES PT BACK TO SLEEP AFTER WE CHANGED THE BEDDINGS AND REPOSITION HIM. HE REFUSED TO BE SPONGES HE STATED HE'S OK AND WANTS TO SLEEP MORE. SKIN WARM AND DRY TO TOUCH. SLEPT WELL AND STABLE RANCHO THE NIGHT. ALL DUE MEDS GIVEN. BLOOD SUGAR CHECKED DONE 123, NO INSULIN GIVEN, NO SIGNS OF HYPO GLYCEMIA NOTED. IVF STILL INFUSING , NO REDNESS AND INFILTRATION NOTED. KEPT HIM WARM AND COMFORTABLE AT ALL TIMES. BED IN LOW AND CLOCK IN POSITION WITH SIDE RAILS X2 UP AND PLACE CALL LIGHT AT REACH. ENDORSE TO AM NURSE.
[2017-10-31 08:00] VITALS: BP 150/79
--- NOTE | 2017-10-31 08:00 | NUR ---
MS RN OPENING NOTES PATIENT SITTING IN BED COMFORTABLY EATING BREAKFAST. NO SOB NOTED. NO SIGN OF ACUTE DISTRESS NOTED. BREATHING REGULAR ,EVEN AND UNLABORED. DENIED ANY PAIN AT THIS TIME. VS STABLE. IV ACCESS AT LAC PATENT AND INTACT, INFUSING NS @ 75ML/HR. NO REDNESS, NO S/SX OF INFILTRATION NOTED. SAFETY MEASURES IN PLACE. CALL LIGHT PLACED WITHIN REACH. WILL CONTINUE TO MONITOR ACCORDINGLY.
[2017-10-31] MEDS: MUPIROCIN OINT 2% 22 GM TUBE SCH (09:18)
[2017-10-31] MEDS: ISOSORBIDE DINITRATE (20MG) 20 MG TABLET PO SCH (09:19)
[2017-10-31] MEDS: IV NS 0.9% 1,000 ML IV PRN (09:19)
[2017-10-31] MEDS: DOXAZOSIN MESYLATE (1 MG) 1 MG TABLET PO SCH (09:19)
[2017-10-31] MEDS: ASPIRIN 81 MG TAB.CHEW PO SCH (09:19)
[2017-10-31] MEDS: SODIUM BICARBONATE 650 MG TABLET PO SCH (09:20)
[2017-10-31] MEDS: AMLODIPINE BESYLATE 5 MG TABLET PO SCH (09:20)
[2017-10-31] MEDS: INSULIN REGULAR, HUMAN 100 UNIT/ML 3 ML VIAL SQ PRN (12:46)
[2017-10-31 16:00] VITALS: BP 148/89
--- NOTE | 2017-10-31 17:20 | NUR ---
MS INJECTION MOLDING MACHINE OFFBEARER NOTES PATIENT DISCHARGED TO [facility] REPORT GIVEN TO JUDITH VIA AMBULANCE IN A GURNEY ACCOMPANIED BY 2 EMT PERSONNEL WITH STABLE VS. NO SOB NOTED. NO SIGN OF ACUTE DISTRESS NOTED. BREATHING REGULAR EVEN AND UNLABORED. DENIED ANY PAIN, NO FACIAL GRIMACING NOTED. DISCHARGED INSTRUCTIONS GIVEN TO THE PATIENT. IV ACCESS ON LAC KEPT, INTACT AND PATENT FOR CONTINUATION OF IV ATB AT [facility]. NO REDNESS NOTED.NO SWELLING NOTED. NO S/SX OF INFILTRATION NOTED. DICKENS CATHETER REMOVED PATIENT TOLERATED WELL. ALL BELONGINGS ACCOUNTED FOR.
== END 2017-10-31 17:20 | DRG 871 ==
LOC: ER 16:01 → TELE 19:51 → MED 10-28 08:43 → UNDODISIN 10-31 15:45
PROVIDERS: ADMIT Nurse Practitioner Acute Care; ATTEND Nurse Practitioner Acute Care
DX: A41.9 Sepsis, unspecified organism (principal); I50.33 Acute on chronic diastolic (congestive) heart failure; N17.9 Acute kidney failure, unspecified; E11.22 Type 2 diabetes mellitus with diabetic chronic kidney disease; D68.9 Coagulation defect, unspecified; E44.0 Moderate protein-calorie malnutrition; E87.2 Acidosis; E11.65 Type 2 diabetes mellitus with hyperglycemia; N18.6 End stage renal disease; I13.0 Hypertensive heart and chronic kidney disease with heart failure and stage 1 through stage 4 chronic kidney disease, or unspecified chronic kidney disease; E87.1 Hypo-osmolality and hyponatremia; N39.0 Urinary tract infection, site not specified; I69.354 Hemiplegia and hemiparesis following cerebral infarction affecting left non-dominant side; E66.01 Morbid (severe) obesity due to excess calories; Z79.82 Long term (current) use of aspirin; Z79.899 Other long term (current) drug therapy; G25.81 Restless legs syndrome; E86.0 Dehydration; Z82.49 Family history of ischemic heart disease and other diseases of the circulatory system; F41.9 Anxiety disorder, unspecified; Z68.35 Body mass index [BMI] 35.0-35.9, adult; N40.0 Benign prostatic hyperplasia without lower urinary tract symptoms; B96.1 Klebsiella pneumoniae [K. pneumoniae] as the cause of diseases classified elsewhere; Z22.322 Carrier or suspected carrier of Methicillin resistant Staphylococcus aureus
CPT/HCPCS: 36415; 71010-TC; 76770-TC; 80048-TC; 80053-TC; 80061-TC; 80076-TC; 81000-TC; 82962-TC; 83605-TC; 83690-TC; 83735-TC; 83880; 84100-TC; 84443-TC; 84484-TC; 85025-TC; 85730-TC; 87040-TC; 87081-TC; 87086-TC; 87186-TC; 97116-TC; 97530-TC; A4606; J0696; J1815; J2270; J2405; J2543; J3360; J3370; J3490; J7030; J7060; Z7610

== ENCOUNTER 2017-11-28 13:57 | Inpatient (IN) | payer OTHER ==
[~2017-11-28] VITALS: Ht 188 cm; Wt 104.3 kg
[~2017-11-28 13:57] MED LIST changes: +ASPI-1169 PO; +DOXA1TAB2 PO; +FURO40TA5 PO; +ISOS20TA8 PO; +LOSA50TA21 PO
[2017-11-28] MEDS ORDERED: SULF1TAB48 PO (14:10)
[2017-11-28] MEDS ORDERED: BLOO-668 IN (14:10)
[2017-11-28] MEDS ORDERED: ACET-2605 PO (14:10)
[2017-11-28] MEDS ORDERED: ZOLP5TAB2 PO (14:10)
[2017-11-28] MEDS ORDERED: CYCL5TAB PO (14:10)
[2017-11-28] MEDS ORDERED: INSU100V3 SQ (14:10)
[2017-11-28] MEDS ORDERED: FOLI0.8T23 PO (14:10)
[2017-11-28] MEDS ORDERED: DOCU250C14 PO (14:10)
[2017-11-28] MEDS ORDERED: SACC250C PO (14:10)
[2017-11-28] MEDS ORDERED: ACET-868 PO (14:10)
--- NOTE | 2017-11-28 14:15 | NUR ---
PT MAUREEN TO ER BED 11. SENT BY PMD FOR ELEVATED BUN AND CREATININE LEVEL. PT DENIES PAIN OR ANY DISCOMFORT. AFEBRILE CARDIO CLINICIAN. AAOX4. GOWNED AND PLACED ON MONITOR. NAD NOTED. AWAITING MD ARAUJO.
[2017-11-28] MEDS ORDERED: NA P133E RC (14:23)
[2017-11-28] MEDS ORDERED: BISA10SU8 RC (14:23)
[2017-11-28] MEDS ORDERED: ONDA4TAB5 PO (14:28)
[2017-11-28] MEDS ORDERED: SODI650T PO (14:28)
[2017-11-28] MEDS ORDERED: ROPI0.253 PO (14:28)
[2017-11-28] MEDS ORDERED: ASCO500T9 PO (14:28)
[2017-11-28] MEDS ORDERED: HYDR-552 PO (14:28)
[2017-11-28] MEDS ORDERED: ZINC220C8 PO (14:28)
[2017-11-28] MEDS ORDERED: MAGN400O6 PO (14:30)
--- NOTE | 2017-11-28 14:47 | NUR ---
DR CHILDERS AT BEDSIDE FOR EVAL.
--- NOTE | 2017-11-28 14:57 | NUR ---
radiology at bedside for chest xray.
--- NOTE | 2017-11-28 15:03 | NUR ---
IV LINE STARTED BLOOD DRAWN AND SENT TO LAB.
[2017-11-28 15:09] LABS: BASOPHILS # (AUTO) 0.7 /CMM (0.0-0.2); EOSINOPHILS # (AUTO) 0.5 /CMM (0.0-0.7); EOSINOPHILS % (AUTO) 2.4 % (0.0-6.0); HEMATOCRIT 43 % (39-51); HEMOGLOBIN 14.8 g/dL (13.5-17.5); LYMPHOCYTES # (AUTO) 1.2 /CMM (0.8-4.8); LYMPHOCYTES % (AUTO) 5.5 % (20.0-44.0); MEAN CORPUSCULAR HEMOGLOBIN 30 PG (26.0-33.0); MEAN CORPUSCULAR HGB CONC 34 g/dl (31.0-36.0); MEAN CORPUSCULAR VOLUME 86 fL (80-96); MONOCYTES # (AUTO) 0.7 /CMM (0.1-1.30); MONOCYTES % (AUTO) 3.1 % (2.0-12.0); NEUTROPHILS # (AUTO) 19.3 /CMM (1.8-8.9); PLATELET COUNT (AUTO) 322 /CMM (150-450); RDW COEFFICIENT OF VARIATION 14.2 (11.5-15.0); RED BLOOD CELL COUNT(AUTO) 5.01 MIL/uL (4.5-6.0); WHITE BLOOD COUNT (AUTO) 22.4 K/uL (4.3-11.0)
[2017-11-28 15:21] LABS: ALBUMIN 3.4 g/dL (3.4-5.0); BILIRUBIN,DIRECT 0.1 mg/dL (0.0-0.2); BILIRUBIN,TOTAL 0.5 mg/dL (0.2-1.0); CALCIUM, SERUM 9.6 mg/dL (8.5-10.1); TOTAL PROTEIN, SERUM 9.1 g/dL (6.4-8.2)
[2017-11-28 15:22] LABS: TROPONIN I 0.018 ng/mL (0.00-0.056)
[2017-11-28 15:23] LABS: CREATININE 8.7 mg/dL (0.6-1.3)
[2017-11-28 16:37] LABS: APPEARANCE,URINE Cloudy (CLEAR); BILIRUBIN,URINE Negative (NEGATIVE); BLOOD, URINE Small Ery/uL (NEGATIVE); COLOR,URINE Yellow (YELLOW); KETONES,URINE Negative (NEGATIVE); LEUKOCYTE ESTERASE ,URINE Moderate (NEGATIVE); NITRITE, URINE Negative (NEGATIVE); PH,URINE 5.5 (5.0-8.0); PROTEIN,URINE 100 mg/dl (NEGATIVE); UGLUCOSE Negative (NEGATIVE); UROBILINOGEN,URINE 0.2 EU/dL (0.2)
[2017-11-28 16:58] LABS: BACTERIA,URINE Moderate /HPF (None Seen); SQUAMOUS EPITHELIAL CELL,UR Few /HPF (None Seen)
[2017-11-28] MEDS ORDERED: IV NS 0.9% 500 ML BAG IV ONE (17:00)
[2017-11-28 17:44] LABS: BAND % (MANUAL) 18 % (0.0-5.0); BASOPHILS % (MANUAL) 4 % (0.0-2.0); EOSINOPHILS % (MANUAL) 2 % (0-4); LYMPHOCYTES % (MANUAL) 10 % (16-48); MONOCYTES % (MANUAL) 5 % (0-11.0); NEUTROPHILS % (MANUAL) 61 (42-76)
--- NOTE | 2017-11-28 18:22 | NUR ---
[facility] PAGED, GUIDEMAN
[2017-11-28] MEDS ORDERED: CEFTRIAXONE 1GM BAG (ER ONLY) 1 GM/50 ML PIGGYBACK IV ONE (19:00)
[2017-11-28] MEDS ORDERED: ACETAMINOPHEN 325 MG TABLET PO PRN (19:30)
[2017-11-28] MEDS ORDERED: Z GUARD REMEDY 2 OZ OINT TP PRN (19:30)
[2017-11-28] MEDS: CEFTRIAXONE 1 G in IV D5W 50 ML IV SCH ×2 (19:30→22:01)
[2017-11-28] MEDS ORDERED: BISACODYL SUPP (10 MG) 10 MG/SUPP.RECT SUPP.RECT RC PRN (19:30)
[2017-11-28] MEDS ORDERED: ZOLPIDEM TARTRATE 5 MG TABLET PO PRN (19:30)
[2017-11-28] MEDS ORDERED: MAG HYDROX/AL HYDROX/SIMETH 30 ML UDC PO PRN (19:30)
[2017-11-28] MEDS: PANTOPRAZOLE 40 MG VIAL IV SCH (19:30)
[2017-11-28] MEDS ORDERED: ENOXAPARIN SODIUM 40 MG/0.4 ML DISP.SYRIN SQ SCH (19:30)
[2017-11-28] MEDS ORDERED: MAGNESIUM HYDROXIDE 30 ML UDC PO PRN (19:30)
--- NOTE | 2017-11-28 20:09 | NUR ---
MS 205-2
--- NOTE | 2017-11-28 20:47 | NUR ---
REPORT GIVEN TO RV. PT AWAITING TRANSFER TO FLOOR.
[2017-11-28 21:45] VITALS: BP 138/88
--- NOTE | 2017-11-28 21:45 | NUR ---
RN NOTES RECEIVED PATIENT FROM ER FOR DX ACUTE ON CHRONIC RENAL FAILURE. AO X 3, ABLE TO MAKE NEEDS KNOWN. NO ACUTE DISTRESS NOTED. DENIES ANY PAIN AT THIS TIME. SKIN ASSESSMENT DONE. IV SITE PATENT, INTACT; FLUSHED. SAFETY REMINDERS GIVEN. ON LOW BED WITH BILATERAL UPPER SIDE RAILS UP. CALL HOOEVR WITHIN EASY REACH. WILL CONTINUE TO MONITOR.
[2017-11-28] MEDS ORDERED: CEFTRIAXONE 1 G VIAL ONE (21:53)
[2017-11-28] MEDS ORDERED: PANTOPRAZOLE 40 MG VIAL ONE (21:53)
[2017-11-28] MEDS ORDERED: ENOXAPARIN SODIUM 40 MG/0.4 ML DISP.SYRIN SQ ONE (21:54)
[2017-11-28] MEDS ORDERED: DOCUSATE SODIUM 250 MG CAPSULE PO ONE (21:54)
[2017-11-28] MEDS: IV 1/2NS 1000 ML 1,000 ML IV PRN (22:00)
[2017-11-28] MEDS: DOCUSATE SODIUM 250 MG CAPSULE PO SCH (22:02)
[2017-11-28] MEDS: BLOOD SUGAR DIAGNOSTIC 1 EACH STRIP IN SCH (22:02)
[2017-11-28] MEDS ORDERED: ONDANSETRON HCL/PF 4 MG/2 ML VIAL ONE (23:05)
[2017-11-28] MEDS: ONDANSETRON HCL/PF 4 MG/2 ML VIAL IVP PRN (23:12)
--- NOTE | 2017-11-29 01:23 | NUR ---
PT REFUSED EKG AT THIS TIME. DOES NOT WANT TO BE WOKEN UP. RN LEVI MADE AWARE.
--- NOTE | 2017-11-29 06:00 | NUR ---
RN NOTES PATIENT ASLEEP, AROUSABLE. RESPIRATIONS EVEN. NO SIGNS OF PAIN NOTED. DUE MEDS GIVEN WITH NO ASE NOTED. NEEDS ATTENDED. KEPT CLEAN AND DRY. SAFETY PRECAUTIONS AND COMFORT MEASURES IN PLACE. WILL GIVE REPORT TO DAY SHIFT FOR CONTINUITY OF CARE.
--- NOTE | 2017-11-29 07:35 | NUR ---
MS RN OPENING NOTE PATIENT IS ASLEEP AT THIS TIME. NO FACIAL GRIMACING NOTED FOR PAIN. NO SOB OR DISTRESS NOTED. CALL LIGHT WITHIN REACH. SAFETY MEASURES IMPLEMENTED. IV INTACT AND PATENT NO REDNESS OR SWELLING NOTED. BLOOD SUGARS TO BE MONITORED, WILL CONTINUE TO MONITOR THROUGHOUT SHIFT.
[2017-11-29] MEDS: BLOOD SUGAR DIAGNOSTIC 1 EACH STRIP IN SCH ×4 (07:37→21:50)
[2017-11-29 08:00] VITALS: BP 142/76
[2017-11-29 08:01] LABS: BASOPHILS # (AUTO) 0.2 /CMM (0.0-0.2); BASOPHILS % (AUTO) 0.9 % (0.0-2.0); EOSINOPHILS % (AUTO) 4.8 % (0.0-6.0); HEMATOCRIT 38 % (39-51); HEMOGLOBIN 12.6 g/dL (13.5-17.5); LYMPHOCYTES # (AUTO) 1.3 /CMM (0.8-4.8); LYMPHOCYTES % (AUTO) 6.4 % (20.0-44.0); MEAN CORPUSCULAR HEMOGLOBIN 29 PG (26.0-33.0); MEAN CORPUSCULAR HGB CONC 33 g/dl (31.0-36.0); MEAN CORPUSCULAR VOLUME 87 fL (80-96); MONOCYTES # (AUTO) 0.8 /CMM (0.1-1.30); MONOCYTES % (AUTO) 3.7 % (2.0-12.0); NEUTROPHILS # (AUTO) 17.4 /CMM (1.8-8.9); NEUTROPHILS % (AUTO) 84.2 % (43.0-81.0); PLATELET COUNT (AUTO) 323 /CMM (150-450); RDW COEFFICIENT OF VARIATION 14.9 (11.5-15.0); RED BLOOD CELL COUNT(AUTO) 4.34 MIL/uL (4.5-6.0); WHITE BLOOD COUNT (AUTO) 20.7 K/uL (4.3-11.0)
[2017-11-29 08:33] LABS: BILIRUBIN,TOTAL 0.4 mg/dL (0.2-1.0); CALCIUM, SERUM 9.1 mg/dL (8.5-10.1); MAGNESIUM 2.3 mg/dL (1.8-2.4); PHOSPHORUS 7.8 mg/dL (2.5-4.9)
[2017-11-29 08:35] LABS: CREATININE 8.7 mg/dL (0.6-1.3)
[2017-11-29] MEDS: DOXAZOSIN MESYLATE (1 MG) 1 MG TABLET PO SCH (08:36)
[2017-11-29] MEDS: PANTOPRAZOLE 40 MG VIAL IV SCH (08:36)
[2017-11-29 08:37] LABS: THYROID STIMULATING HORMONE 0.56 uIU/mL (0.358-3.74)
[2017-11-29] MEDS: AMLODIPINE BESYLATE 5 MG TABLET PO SCH (08:37)
[2017-11-29] MEDS: ASPIRIN 81 MG TAB.CHEW PO SCH (08:37)
[2017-11-29] MEDS: ASCORBIC ACID 500 MG TABLET PO SCH (08:37)
[2017-11-29] MEDS: ISOSORBIDE DINITRATE (20MG) 20 MG TABLET PO SCH (08:38)
[2017-11-29] MEDS: IV 1/2NS 1000 ML 1,000 ML IV PRN (08:40)
--- NOTE | 2017-11-29 09:46 | NUR ---
MS RN NOTE PATIENT HAD ONE EPISODE OF EMESIS. ZOFRAN GIVEN.
[2017-11-29] MEDS: ONDANSETRON HCL/PF 4 MG/2 ML VIAL IVP PRN (09:48)
[2017-11-29] MEDS: HEPARIN SODIUM, PORCINE 5000 UNITS/1 ML VIAL SQ SCH ×2 (11:28→21:00)
[2017-11-29] MEDS: VIT B CMPLX 3/FA/VIT C/BIOTIN 1 TAB TABLET PO SCH (11:28)
--- NOTE | 2017-11-29 11:46 | NUR ---
RN NOTE BLOOD SUGAR CHECKED-129 NO INSULIN NEEDED.
[2017-11-29] MEDS: SEVELAMER CARBONATE 0.8 GM POWD.PACK GT SCH ×2 (13:21→17:21)
[2017-11-29 16:00] VITALS: BP 129/68
[2017-11-29] MEDS: BOOST GLUCOSE CONTROL VANILLA 237 ML BOX PO SCH (17:00)
[2017-11-29] MEDS: ropiniROLE 0.5 MG TABLET PO SCH (17:21)
--- NOTE | 2017-11-29 17:24 | NUR ---
Patient is alert, he is a resident of [facility] [phone]. He plan to return to [facility] once discharge. Per renal- plan for permacath in am and start HD , patient is now on ESRD. Will need outpt HD set-up prior d/c. Addendum: 11/29/17 at 1726 by MINDY TRUONG RN Amended: Links added.
--- NOTE | 2017-11-29 18:50 | NUR ---
MS RN CLOSING NOTE PATIENT IS ALERT AND ORIENTED x3. NO PAIN AT THIS TIME. NO SOB OR DISTRESS NOTED. CALL LIGHT WITHIN AT ALL TIMES. SAFETY MEASURES IMPLEMENTED. ALL DUE MEDICATIONS GIVEN ORDERED. ALL NURSING CARE NEEDS ATTENDED TO. NPO AFTER MIDNIGHT FOR PERMACATH INSERTION. CONSENTS OBTAINED AND PLACED IN CHART. IV INTACT AND PATENT , IV FLUIDS RUNNING AT 100 TOLERATING WELL. WILL ENDORSE TO CONFERENCE SERVICES MANAGER NURSE FOR SABINA
--- NOTE | 2017-11-29 19:15 | NUR ---
MS RN CLOSING NOTE PATIENT IS IN BED, ASLEEP AT THIS TIME, AROUSES EASILY. ALERT AND ORIENTED x 3. NO SOB OR DISTRESS NOTED. POC DISCUSSED WITH PATIENT THAT HE WILL BE NPO AFTER MIDNIGHT FOR PERMA CATH INSERTION, VERBALIZED UNDERSTANDING. IV SITE ON RAC 20G, INTACT AND PATENT, NO S/S OF INFILTRATION NOTED. IVF INFUSING WELL. ALL NEEDS ATTENDED AND MET. CALL LIGHT WITHIN REACH. WILL CONT TO MONITOR. Addendum: 11/30/17 at 0659 by LOUISE CARPENTER RN INCORRECT DOCUMENTATION
[2017-11-29 20:00] VITALS: BP 131/72
[2017-11-29] MEDS ORDERED: CEFTRIAXONE 1 G in IV D5W 50 ML IV SCH (20:00)
[2017-11-29] MEDS ORDERED: ENOXAPARIN SODIUM 30 MG/0.3 ML DISP.SYRIN SQ SCH (21:00)
[2017-11-29] MEDS: DOCUSATE SODIUM 250 MG CAPSULE PO SCH (21:49)
[2017-11-29] MEDS: ZOLPIDEM TARTRATE 5 MG TABLET PO PRN (21:54)
[2017-11-29 22:00] VITALS: BP 131/72
[2017-11-30] MEDS: IV 1/2NS 1000 ML 1,000 ML IV PRN ×2 (02:49→17:41)
[2017-11-30] MEDS: BLOOD SUGAR DIAGNOSTIC 1 EACH STRIP IN SCH ×4 (06:18→21:24)
[2017-11-30] MEDS ORDERED: IOHEXOL 50 ML IV ONE (06:53)
[2017-11-30] MEDS ORDERED: HEPARIN SODIUM, PORCINE 1,000 UNIT/ML VIAL ONE ×2 (06:54→06:55)
[2017-11-30] MEDS ORDERED: LIDOCAINE 1% INJ 50 ML MDV IJ ONE (06:54)
--- NOTE | 2017-11-30 06:57 | NUR ---
MS RN CLOSING NOTE PATIENT IS IN BED, ASLEEP AT THIS TIME, AROUSES EASILY. ALERT AND ORIENTED x 3. NO SOB OR DISTRESS NOTED. PT FOR PERMA CATH INSERTION, VERBALIZED UNDERSTANDING. ON NPO STARTING MIDNIGHT. IV SITE ON RAC 20G, INTACT AND PATENT, NO S/S OF INFILTRATION NOTED. IVF INFUSING WELL. ALL NEEDS ATTENDED AND MET. ALL DUE MEDS GIVEN. CALL LIGHT WITHIN REACH. WILL ENDORSE TO NEXT SHIFT FOR SABINA.
--- NOTE | 2017-11-30 07:15 | NUR ---
PT LEFT AND PICKED UP BY OR STAFF FOR PERMA CATH PLACEMENT. PT IN STABLE CONDITION, NO DISTRESS, NO SOB NOTED. NO C/O PAIN OR DISCOMFORT AT THIS TIME.
[2017-11-30] MEDS ORDERED: FENTANYL PF 100MCG/2ML AMPUL ONE (07:32)
[2017-11-30] MEDS ORDERED: MIDAZOLAM HCL 2 MG/2ML VIAL ONE (07:33)
--- NOTE | 2017-11-30 08:07 | NUR ---
MS RN NOTES PATIENT STILL AT THE OR FOR PERMA CATH PLACEMENT BY DR. LANDEROS.
[2017-11-30] MEDS ORDERED: ONDANSETRON HCL/PF 4 MG/2 ML VIAL ONE (08:45)
[2017-11-30] MEDS: VIT B CMPLX 3/FA/VIT C/BIOTIN 1 TAB TABLET PO SCH (09:00)
[2017-11-30] MEDS: DOXAZOSIN MESYLATE (1 MG) 1 MG TABLET PO SCH (09:00)
[2017-11-30] MEDS: ASCORBIC ACID 500 MG TABLET PO SCH (09:00)
[2017-11-30] MEDS: HEPARIN SODIUM, PORCINE 5000 UNITS/1 ML VIAL SQ SCH ×2 (09:00→20:49)
[2017-11-30] MEDS: ISOSORBIDE DINITRATE (20MG) 20 MG TABLET PO SCH (09:00)
[2017-11-30] MEDS: AMLODIPINE BESYLATE 5 MG TABLET PO SCH (09:00)
[2017-11-30] MEDS: ASPIRIN 81 MG TAB.CHEW PO SCH (09:00)
[2017-11-30 09:10] VITALS: BP 134/74
--- NOTE | 2017-11-30 09:13 | NUR ---
PATIENT IS BACK TO THE UNIT-MEDR. CALLED DR. LANDEROS LEFT MESSAGE TO HIS VOICEMAIL FOR ORDERS CLARIFICATION, AWAITING FOR CALL BACK. NURSE RADIAL ROUTER OPERATOR INFORMED.
[2017-11-30 09:24] VITALS: BP 134/74
--- NOTE | 2017-11-30 09:34 | NUR ---
RECEIVED PHONE CALL FROM DR. LANDEROS, CLARIFIED ORDERS. PATIENT WILL REMAIN ADMITTED TO [facility], NURSE JIG BORER INFORMED. PER DR. LANDEROS TO HOLD HEPARIN SQ UNTIL TOMORROW AM AND OK TO CONT ASPIRIN TODAY, NOTED AND ACKNOWLEDGE. RIGHT IJ PERMACATH INTACT, NO BLEEDING NOTED. WILL CONT TO MONITOR.
[2017-11-30] MEDS: SEVELAMER CARBONATE 0.8 GM POWD.PACK GT SCH ×3 (09:41→17:43)
[2017-11-30] MEDS: BOOST GLUCOSE CONTROL VANILLA 237 ML BOX PO SCH ×2 (09:41→18:16)
[2017-11-30] MEDS: PANTOPRAZOLE 40 MG VIAL IV SCH (09:46)
--- NOTE | 2017-11-30 09:51 | NUR ---
PER WAS GIVEN ZOFRAN IV PRIOR RETURN TO THE UNIT PER OR NURSE. STILL NAUSEOUS AT THIS TIME AND REFUSED AM MEDS. MADE COMFORTABLE IN BED, MAINTAIN HOB ELEVATED. DENIES CHEST PAIN, WILL CONT TO MONITOR.
--- NOTE | 2017-11-30 12:24 | NUR ---
FSBS 162MG/DL WITH NO ISS COVERAGE.
--- NOTE | 2017-11-30 15:33 | NUR ---
PATIENT IN BED, REPOSITION IN BED. REPORTED PAIN IN HIS RIGHT ARM 3/10, MEDICATED WITH TYLENOL 650MG PO PRN, WILL REASSESS.
[2017-11-30 16:00] VITALS: BP 153/80
--- NOTE | 2017-11-30 16:04 | NUR ---
PATIENT STARTED ON DIALYSIS TREATMENT, DIALYSIS NURSE AT THE BEDSIDE.
[2017-11-30] MEDS: ropiniROLE 0.5 MG TABLET PO SCH (17:43)
--- NOTE | 2017-11-30 17:46 | NUR ---
DIALYSIS TREATMENT DONE WITH 1L FLUID OUTPUT PER DIALYSIS NURSE. PATIENT TOLERATED WELL.
--- NOTE | 2017-11-30 18:17 | NUR ---
FSBS 121MG/DL WITH NO ISS COVERAGE.
[2017-11-30] MEDS: MEROPENEM 500 MG in IV NS 0.9% 50 ML IV SCH (18:26)
--- NOTE | 2017-11-30 18:55 | NUR ---
MS RN CLOSING NOTES PATIENT IN BED, A/O X4. BREATHING EVEN AND NON LABORED, NO SOB. ON ANTIBIOTIC WITH NO ADVERSE SIDE EFFECT. RIGHT IJ PERMA CATH INTACT, NO BLEEDING NOTED. CONTACT ISOLATION OBSERVED, ESBL URINE. POSTERIOR MID PERINEAL OPEN/BLISTER WITH DISCHARGE SEROSANGUINEOUS FLUID MINIMAL AMT. COVER WITH GAUZE AND SECURED WITH TAPE. FOR WOUND CARE CONSULT. CALL LIGHT WITHIN REACH. WILL ENDORSE TO RESIDENT INSPECTOR RN FOR SABINA.
--- NOTE | 2017-11-30 19:30 | NUR ---
RN NOTE, RECEIVED PT IN BED AWAKE AND ALERT. BREATHING EVENLY. NO SOB. NAD . DENIED ANY PAIN OR DISCOMFORT. S/O HD TODAY W. NO COMPLICATION. HD CATH ON RCW INTACT. NEEDS ATTENDED ./ BED LOW LOCKED. CALL LIGHT WITHIN REACH. WILL CONT TO MONITOR,
[2017-11-30 20:00] VITALS: BP 141/74
[2017-11-30] MEDS: DOCUSATE SODIUM 250 MG CAPSULE PO SCH (21:25)
[2017-11-30] MEDS: ZOLPIDEM TARTRATE 5 MG TABLET PO PRN (21:25)
[2017-11-30] MEDS: CYCLOBENZAPRINE 10 MG TABLET PO PRN (21:28)
--- NOTE | 2017-11-30 21:28 | NUR ---
AMBIEN GIVEN ORDERED PER PT'S REQUEST FOR C/O INSOMNIA. ALSO FLEXERIL GIVEN ORDERED PER PT'S REQUEST FOR L LEG MUSCLE SPASM. WILL CONT TO MONITOR ,
[2017-12-01] MEDS: IV 1/2NS 1000 ML 1,000 ML IV PRN ×3 (04:21→23:55)
[2017-12-01] MEDS: MEROPENEM 500 MG in IV NS 0.9% 50 ML IV SCH ×2 (04:21→16:48)
--- NOTE | 2017-12-01 06:24 | NUR ---
PT IN BED DOZING INTERMITTENTLY. BREATHING EVENLY. NO SOB. NO ACUTE EVENT DURING THE NIGHT HOWEVER W/ POOR SLEEP PATTERN DUE TO RLS. NEEDS ATTENDED . BED LOW LOCKED. CALL LIGHT WITHIN REACH, WILL CONT TO MONITOR AND WILL ENDORSE TO AM SHIFT FOR SABINA.
[2017-12-01] MEDS: BLOOD SUGAR DIAGNOSTIC 1 EACH STRIP IN SCH ×4 (06:59→21:27)
[2017-12-01 07:03] LABS: BASOPHILS # (AUTO) 0.1 /CMM (0.0-0.2); BASOPHILS % (AUTO) 0.4 % (0.0-2.0); EOSINOPHILS # (AUTO) 1.3 /CMM (0.0-0.7); EOSINOPHILS % (AUTO) 7.9 % (0.0-6.0); HEMATOCRIT 36 % (39-51); HEMOGLOBIN 12.1 g/dL (13.5-17.5); LYMPHOCYTES # (AUTO) 1.2 /CMM (0.8-4.8); LYMPHOCYTES % (AUTO) 7.2 % (20.0-44.0); MEAN CORPUSCULAR HEMOGLOBIN 30 PG (26.0-33.0); MEAN CORPUSCULAR HGB CONC 34 g/dl (31.0-36.0); MEAN CORPUSCULAR VOLUME 88 fL (80-96); MONOCYTES # (AUTO) 0.7 /CMM (0.1-1.30); MONOCYTES % (AUTO) 3.9 % (2.0-12.0); NEUTROPHILS # (AUTO) 13.6 /CMM (1.8-8.9); NEUTROPHILS % (AUTO) 80.6 % (43.0-81.0); PLATELET COUNT (AUTO) 271 /CMM (150-450); RDW COEFFICIENT OF VARIATION 15.3 (11.5-15.0); RED BLOOD CELL COUNT(AUTO) 4.09 MIL/uL (4.5-6.0); WHITE BLOOD COUNT (AUTO) 16.8 K/uL (4.3-11.0)
--- NOTE | 2017-12-01 07:50 | NUR ---
MS RN NOTES PATIENT IN BED, AWAKE. A/O X4. RIGHT IJ PERMA CATH INTACT, NO BLEEDING NOTED. IVC IN RIGHT AC G20 PATENT AND INTACT, ON IVF 1/2 NS INFUSING AT 100ML/HR. CONTACT ISOLATION ESBL URINE. WILL CONT TO MONITOR. FOR WOUND CARE CONSULT. CALL LIGHT WITHIN REACH.
[2017-12-01 07:52] LABS: CALCIUM, SERUM 9.3 mg/dL (8.5-10.1); CREATININE 6.2 mg/dL (0.6-1.3); MAGNESIUM 2.1 mg/dL (1.8-2.4); PHOSPHORUS 5.9 mg/dL (2.5-4.9); POTASSIUM 4.1 mmol/L (3.5-5.1)
[2017-12-01 08:00] VITALS: BP 133/74
[2017-12-01] MEDS: PANTOPRAZOLE 40 MG VIAL IV SCH (08:31)
[2017-12-01] MEDS: ASPIRIN 81 MG TAB.CHEW PO SCH (08:32)
[2017-12-01] MEDS: SEVELAMER CARBONATE 0.8 GM POWD.PACK GT SCH ×4 (08:32→17:10)
[2017-12-01] MEDS: ISOSORBIDE DINITRATE (20MG) 20 MG TABLET PO SCH (08:33)
[2017-12-01] MEDS: VIT B CMPLX 3/FA/VIT C/BIOTIN 1 TAB TABLET PO SCH (08:33)
[2017-12-01] MEDS: DOXAZOSIN MESYLATE (1 MG) 1 MG TABLET PO SCH (08:33)
[2017-12-01] MEDS: ASCORBIC ACID 500 MG TABLET PO SCH (08:33)
[2017-12-01] MEDS: AMLODIPINE BESYLATE 5 MG TABLET PO SCH (08:33)
[2017-12-01] MEDS: HEPARIN SODIUM, PORCINE 5000 UNITS/1 ML VIAL SQ SCH ×2 (08:45→21:27)
[2017-12-01] MEDS: BOOST GLUCOSE CONTROL VANILLA 237 ML BOX PO SCH ×2 (09:51→16:56)
--- NOTE | 2017-12-01 11:47 | NUR ---
DIALYSIS TREATMENT STARTED, DIALYSIS NURSE AT THE BEDSIDE.
--- NOTE | 2017-12-01 14:13 | NUR ---
DIALYSIS TX DONE WITH 500ML FLUID OUTPUT PER DIALYSIS NURSE. PATIENT TOLERATED WELL WITH BP 157/78 P90
[2017-12-01 16:00] VITALS: BP 121/77
[2017-12-01] MEDS: ropiniROLE 0.5 MG TABLET PO SCH (17:10)
--- NOTE | 2017-12-01 18:25 | NUR ---
MS RN CLOSING NOTES PATIENT IN BED, A/O X4. CONT ON ANTIBIOTIC ORDERED WITH NO ADVERSE SIDE EFFECT. ON CONTACT ISOLATION ESBL URINE. POSTERIOR MID PERINEAL BLISTER/OPEN WOUND WITH FLUID DISCHARGE SEROSANGUINEOUS MINIMAL AMT. DR. OLGUIN INFORMED. AWAITING FOR WOUND CARE CONSULT. GAUZE APPLIED TO WOUND, KEPT CLEAN AND DRY. CALL LIGHT WITHIN REACH. WILL ENDORSE TO WEATHERIZATION ADMINISTRATOR RN FOR SABINA.
--- NOTE | 2017-12-01 19:30 | NUR ---
RN OPENING NOTE, RECEIVED PT IN BED AWAKE AND ALERT. BREATHING EVENLY. NO SOB. NAD . DENIED ANY PAIN OR DISCOMFORT AT THIS TIME. S/O HD TODAY W. NO COMPLICATION. HD CATH ON RCW INTACT. NEEDS ATTENDED . BED LOW LOCKED. CALL LIGHT WITHIN REACH. WILL CONT TO MONITOR,
[2017-12-01 20:00] VITALS: BP 126/86
[2017-12-01 20:32] VITALS: BP 126/86
[2017-12-01] MEDS: DOCUSATE SODIUM 250 MG CAPSULE PO SCH (21:27)
[2017-12-01] MEDS: ZOLPIDEM TARTRATE 5 MG TABLET PO PRN (23:54)
--- NOTE | 2017-12-01 23:58 | NUR ---
HERRERAIEN GIVEN ORDERED PER PT'S REQUEST FOR C/O INSOMNIA, WILL CONT TO MONITOR
[2017-12-02] MEDS: MEROPENEM 500 MG in IV NS 0.9% 50 ML IV SCH ×2 (04:05→17:56)
--- NOTE | 2017-12-02 06:45 | NUR ---
RN CLOSING NOTE; PT IN BED SLEEPING, AROUSES EASILY., BREATHING EVENLY. NO SOB. NO ACUTE EVENT OVER NIGHT. NO C/O PAIN OR DISCOMFORT . ON ONGOING IVF HYDRATION ALPHONSO WELL . NEEDS ATTENDED . ASSISTED W/ ADLS. GOOD SKIN CARE ON THE OPEN AREA OF POSTERIOR SACRAL PROVIDED. CLEANED AND DRIED. CALL LIGHT WITHIN REACH. WILL CONT TO MONITOR AND WILL ENDORSE TO AM SHIFT FOR SABINA.
[2017-12-02] MEDS: BLOOD SUGAR DIAGNOSTIC 1 EACH STRIP IN SCH ×4 (07:05→21:37)
--- NOTE | 2017-12-02 07:50 | NUR ---
MS RN NOTES PATIENT IN BED, AWAKE. A/O X4. ON ROOM AIR, NO SOB. IVC IN RIGHT AC G20 PATENT AND INTACT, IVF 1/2 NS INFUSING AT 100ML/HR, TOLERATING WELL. FOR WOUND CARE CONSULT. ON CONTACT ISOLATION ESBL URINE. CALL LIGHT WITHIN REACH. WILL CONT TO MONITOR.
[2017-12-02 08:00] VITALS: BP 133/74
[2017-12-02] MEDS: PANTOPRAZOLE 40 MG VIAL IV SCH (08:24)
[2017-12-02] MEDS: ISOSORBIDE DINITRATE (20MG) 20 MG TABLET PO SCH (08:25)
[2017-12-02] MEDS: VIT B CMPLX 3/FA/VIT C/BIOTIN 1 TAB TABLET PO SCH (08:25)
[2017-12-02] MEDS: ASCORBIC ACID 500 MG TABLET PO SCH (08:25)
[2017-12-02] MEDS: SEVELAMER CARBONATE 0.8 GM POWD.PACK GT SCH ×3 (08:25→18:36)
[2017-12-02] MEDS: ASPIRIN 81 MG TAB.CHEW PO SCH (08:25)
[2017-12-02] MEDS: AMLODIPINE BESYLATE 5 MG TABLET PO SCH (08:25)
[2017-12-02] MEDS: DOXAZOSIN MESYLATE (1 MG) 1 MG TABLET PO SCH (08:25)
[2017-12-02] MEDS: BOOST GLUCOSE CONTROL VANILLA 237 ML BOX PO SCH ×2 (08:31→17:00)
[2017-12-02] MEDS: HEPARIN SODIUM, PORCINE 5000 UNITS/1 ML VIAL SQ SCH ×2 (08:35→21:47)
--- NOTE | 2017-12-02 10:47 | NUR ---
WOUND CARE CONSULT: PT PRESENTS WITH PERINEAL WOUND WITH PURULENT DRAINAGE, PRESENT ON ADMISSION. PT IS INCONTINENT OF STOOL. PT CONTINENT OF URINE (USES URINAL). RECOMMEND SURGICAL CONSULT. SURGEON TO SEE PT TODAY PER RN REPORT. RECOMMENDATIONS MADE FOR WOUND CARE AND SKIN PROTECTION. DISCUSSED WITH NURSING STAFF. WILL SEE PRN. CIFUENTES IN AGREEMENT WITH PLAN OF CARE. Addendum: 12/02/17 at 1049 by KALEB TOSCANO WNDNU Amended: Links added.
[2017-12-02] MEDS ORDERED: FEE PK DOSING 1 MIN EA MC ONE (13:00)
[2017-12-02] MEDS ORDERED: VANCOMYCIN 1.25 GM in IV D5W 500 ML IV ONE (13:00)
[2017-12-02] MEDS: IV 1/2NS 1000 ML 1,000 ML IV PRN (13:24)
[2017-12-02 16:00] VITALS: BP 135/75
--- NOTE | 2017-12-02 17:09 | NUR ---
PATIENT LAST FOOD INTAKE AT 3PM, CALLED KAMILA. SPOKE TO TSERING, CT ABDOMEN PELVIS WITH CONTRAST WOULD BE AT 7PM. INSTRUCTED PATIENT NOT TO EAT OR DRINK FOR THE TEST, PATIENT CONSENTED THE PROCEDURE. COMMUNICATE WITH DIALYSIS NURSE, CATARINO. DIALYSIS NURSE INFORMED.
[2017-12-02] MEDS ORDERED: IV NS 0.9% 250 ML IV ONE (18:04)
[2017-12-02] MEDS ORDERED: IOHEXOL-300 100 ML VIAL IV ONE (18:04)
[2017-12-02] MEDS: ropiniROLE 0.5 MG TABLET PO SCH (18:37)
--- NOTE | 2017-12-02 18:44 | NUR ---
MS RN CLOSING NOTES PATIENT IN BED, A/O X4. CONT ON ANTIBIOTIC ORDERED WITH NO ADVERSE SIDE EFFECT. ON CONTACT ISOLATION ESBL URINE. PERINEAL WOUND DRESSING INTACT. FOR CT ABDOMEN PELVIS IN AM, PER RAD AT 10AM. NPO MN. CALL LIGHT WITHIN REACH. CALLED SPOKE TO CATARINO/DIALYSIS NURSE TO COMMUNICATE DIALYSIS AFTER CT IS DONE. WILL ENDORSE TO CARTOGRAPHIC DRAFTER RN FOR SABINA.
--- NOTE | 2017-12-02 19:30 | NUR ---
RN OPENING NOTE; RECEIVED PT IN BED AWAKE AND ALERT. BREATHING EVENLY. NO SOB . NAD. HD CATH INTACT. NO C/O PAIN OR DISCOMFORT AT THIS TIME. DRESSING ON THE PERINEAL AREA CDI. NEEDS ATTENDED. BED LOW LOCKED. CALL LIGHT WITHIN REACH. WILL CONT TO MONITOR ,
[2017-12-02 20:00] VITALS: BP 140/76
[2017-12-02] MEDS: DOCUSATE SODIUM 250 MG CAPSULE PO SCH (21:36)
[2017-12-02] MEDS: ZOLPIDEM TARTRATE 5 MG TABLET PO PRN (21:37)
[2017-12-03] MEDS: MEROPENEM 500 MG in IV NS 0.9% 50 ML IV SCH ×2 (04:47→17:29)
[2017-12-03] MEDS: IV 1/2NS 1000 ML 1,000 ML IV PRN (04:49)
--- NOTE | 2017-12-03 06:52 | NUR ---
RN CLOSING NOTE; PT IN BED SLEEPING, AROUSES EASILY., BREATHING EVENLY. NO SOB. NO ACUTE EVENT OVER NIGHT. NO C/O PAIN OR DISCOMFORT . ON ONGOING IVF HYDRATION ALPHONSO WELL/ . NEEDS ATTENDED . BED LOW LOCKED. CALL LIGHT WITHIN REACH. WILL CONT TO MONITOR AND WILL ENDORSE TO AM SHIFT FOR SABINA.
[2017-12-03 07:27] LABS: CALCIUM, SERUM 8.7 mg/dL (8.5-10.1); CREATININE 5.7 mg/dL (0.6-1.3); POTASSIUM 3.7 mmol/L (3.5-5.1)
--- NOTE | 2017-12-03 07:30 | NUR ---
MS/RN Patient received Patient received from night auditor. Denies pain or discomfort, no needs at this time. Call light within reach, bed in low setting, brakes locked, side rails X3 in upright position. Will continue to monitor and ensure safety.
[2017-12-03 08:00] VITALS: BP 137/81
[2017-12-03] MEDS: SEVELAMER CARBONATE 0.8 GM POWD.PACK GT SCH ×3 (08:00→17:29)
[2017-12-03] MEDS: BOOST GLUCOSE CONTROL VANILLA 237 ML BOX PO SCH ×2 (08:00→17:29)
[2017-12-03] MEDS: BLOOD SUGAR DIAGNOSTIC 1 EACH STRIP IN SCH ×4 (08:09→22:14)
--- NOTE | 2017-12-03 08:15 | NUR ---
MS/RN Medications Oral medications held at this time as NPO for CT scan.
[2017-12-03] MEDS: ASPIRIN 81 MG TAB.CHEW PO SCH (08:49)
[2017-12-03] MEDS: DOXAZOSIN MESYLATE (1 MG) 1 MG TABLET PO SCH (08:50)
[2017-12-03] MEDS: ASCORBIC ACID 500 MG TABLET PO SCH (08:50)
[2017-12-03] MEDS: AMLODIPINE BESYLATE 5 MG TABLET PO SCH (08:50)
[2017-12-03] MEDS: ISOSORBIDE DINITRATE (20MG) 20 MG TABLET PO SCH (08:50)
[2017-12-03] MEDS: VIT B CMPLX 3/FA/VIT C/BIOTIN 1 TAB TABLET PO SCH (08:50)
[2017-12-03] MEDS: PANTOPRAZOLE 40 MG VIAL IV SCH (08:53)
[2017-12-03] MEDS: HEPARIN SODIUM, PORCINE 5000 UNITS/1 ML VIAL SQ SCH ×2 (08:54→22:18)
[2017-12-03] MEDS ORDERED: IV NS 0.9% 250 ML IV ONE (09:05)
[2017-12-03] MEDS ORDERED: CT SWABBABLE VALVE TRANS SET 1 EA INFUS.SET MC ONE (09:05)
[2017-12-03] MEDS ORDERED: IOHEXOL-300 100 ML VIAL IV ONE (09:05)
--- NOTE | 2017-12-03 09:15 | NUR ---
MS/RN CT scan Patient taken via bed to radiology for CT scan abdomen and pelvis.
--- NOTE | 2017-12-03 09:58 | NUR ---
MS/RN Back to room Back from radiology department following CT scan of abdomen and pelvis, no result as of this time. Diet ordered.
[2017-12-03 16:00] VITALS: BP 144/79
[2017-12-03] MEDS ORDERED: VANCOMYCIN 1 GM in IV D5W 250 ML IV ONE (16:00)
--- NOTE | 2017-12-03 16:33 | NUR ---
MS/RN Cecilia Vancomycin 1gm ordered to be administered at 4p. Per pharmacy, this should be given post HDX.
[2017-12-03] MEDS: ropiniROLE 0.5 MG TABLET PO SCH (17:29)
--- NOTE | 2017-12-03 19:22 | NUR ---
MS/RN End note HDX nurse at bedside and about to start treatment, night nurse made aware that patient needs to receive vanco after HDX. All needs attended, will endorse to assembler 1st shift.
--- NOTE | 2017-12-03 19:35 | NUR ---
RN OPENING NOTES RECEIVED REPORT FROM MARIBEL RNDUYEN. FOUND Pt AWAKE, RESTING IN BED. GETTING HD AT BEDSIDE AT THIS TIME. WILL ADMINISTER VANCO AFTER HD IS DONE. NO S/S OF ACUTE DISTRESS OR SOB NOTED. Pt IS A/OX3, VERBAL, ABLE TO MAKE NEEDS KNOWN. IV ACCESS ON RWRIST #22G, IVF 1/2NS @100ML/HR. SAFETY MEASURES IN PLACE. BED LOW, LOCKED, HOB ELEVATED, SIDE RAILS UP, CALL LIGHT AND BEDSIDE TABLE WITHIN REACH. WILL CONTINUE TO MONITOR Pt THROUGHOUT THE NIGHT FOR SAFETY.
[2017-12-03 20:00] VITALS: BP_SYST 161; BP_DIAS 73; BP_DIAS 84
--- NOTE | 2017-12-03 20:00 | NUR ---
RN NOTES PER HD NURSE KALYANI, NO BLOOD WILL BE TAKEN OUT. JUST CLEANING OUT THE SYSTEM DUE TO CONTRAST BEING USED EARLIER IN THE DAY FOR THE CT SCAN.
--- NOTE | 2017-12-03 22:05 | NUR ---
HS BG 124. NO INSULIN COVERAGE NEEDED AT THIS TIME.
--- NOTE | 2017-12-03 22:07 | NUR ---
RN NOTES VANCO 1GM GIVEN AFTER HD WAS FINISHED. NO OUTPUT FOR HD.
[2017-12-03] MEDS: DOCUSATE SODIUM 250 MG CAPSULE PO SCH (22:14)
[2017-12-03] MEDS: ZOLPIDEM TARTRATE 5 MG TABLET PO PRN (22:14)
[2017-12-04] MEDS: MEROPENEM 500 MG in IV NS 0.9% 50 ML IV SCH ×2 (05:35→17:42)
--- NOTE | 2017-12-04 06:30 | NUR ---
AC BG 100. NO INSULIN COVERAGE NEEDED AT THIS TIME.
[2017-12-04] MEDS: BLOOD SUGAR DIAGNOSTIC 1 EACH STRIP IN SCH ×4 (06:34→21:49)
--- NOTE | 2017-12-04 06:35 | NUR ---
RN CLOSING NOTES NO SIGNIFICANT CHANGES IN Pt's CONDITION. Pt REMAINS STABLE AT THIS TIME. NO S/S OF ACUTE DISTRESS OR SOB NOTED DURING THE NIGHT. ALL NEEDS MET AND ATTENDED TO. SAFETY MEASURES IN PLACE. WILL ENDORSE TO DAYSHIFT RN FOR Pt's SABINA.
[2017-12-04 07:08] LABS: CALCIUM, SERUM 8.9 mg/dL (8.5-10.1); CREATININE 4.3 mg/dL (0.6-1.3); POTASSIUM 3.5 mmol/L (3.5-5.1)
[2017-12-04 08:00] VITALS: BP 146/83
[2017-12-04] MEDS: SEVELAMER CARBONATE 0.8 GM POWD.PACK GT SCH ×3 (08:54→18:01)
[2017-12-04] MEDS: ASCORBIC ACID 500 MG TABLET PO SCH (08:54)
[2017-12-04] MEDS: DOXAZOSIN MESYLATE (1 MG) 1 MG TABLET PO SCH (08:55)
[2017-12-04] MEDS: AMLODIPINE BESYLATE 5 MG TABLET PO SCH (08:55)
[2017-12-04] MEDS: ISOSORBIDE DINITRATE (20MG) 20 MG TABLET PO SCH (08:55)
[2017-12-04] MEDS: VIT B CMPLX 3/FA/VIT C/BIOTIN 1 TAB TABLET PO SCH (08:55)
[2017-12-04] MEDS: PANTOPRAZOLE 40 MG VIAL IV SCH (08:55)
[2017-12-04] MEDS: ASPIRIN 81 MG TAB.CHEW PO SCH (08:55)
[2017-12-04] MEDS: BOOST GLUCOSE CONTROL VANILLA 237 ML BOX PO SCH ×2 (08:56→17:00)
[2017-12-04] MEDS: HEPARIN SODIUM, PORCINE 5000 UNITS/1 ML VIAL SQ SCH ×2 (09:00→22:10)
[2017-12-04] MEDS: IV 1/2NS 1000 ML 1,000 ML IV PRN ×2 (09:08→22:21)
[2017-12-04 16:00] VITALS: BP 136/73
[2017-12-04] MEDS: ropiniROLE 0.5 MG TABLET PO SCH (18:01)
--- NOTE | 2017-12-04 18:45 | NUR ---
RN NOTES PATIENT ALERT AND ORIENTED X3, BREATHING EVEN AND UNLABORED, IN NO DISTRESS, WAITING FOR GENERAL SURGEON CONSULT, WOUND TREATMENT DONE, ASSISTED WITH TURNING AND REPOSITIONING, ASSISTED WITH ADLS. ALL DUE MEDS GIVEN, IVF INFUSING AND TOLERATING, CALL LIGHT WITHIN REACH, SAFETY MEASURES IN PLACED, WILL ENDORSE TO METAL HANGING SUPERVISOR FOR SABINA.
[2017-12-04 20:00] VITALS: BP 140/74
[2017-12-04] MEDS: ZOLPIDEM TARTRATE 5 MG TABLET PO PRN (21:50)
[2017-12-04] MEDS: DOCUSATE SODIUM 250 MG CAPSULE PO SCH (21:50)
[2017-12-05] MEDS: MEROPENEM 500 MG in IV NS 0.9% 50 ML IV SCH ×2 (05:03→17:50)
--- NOTE | 2017-12-05 06:43 | NUR ---
MS RN NOTES AWAKE & RESPONSIVE. NOT IN ANY DISTRESS. NO SOB NOTED. DENIES ANY PAIN OR DISCOMFORT AT THIS TIME. WITH IVF INFUSING WELL. PT REFUSED TO HAVE MORNING CARE DONE. MONITORED ACCORDINGLY. CALL LIGHT WITHIN REACH. BED IN LOWEST POSITION. SR UP X 2 FOR SAFETY. WILL ENDORSE TO NEXT SHIFT.
[2017-12-05] MEDS: BLOOD SUGAR DIAGNOSTIC 1 EACH STRIP IN SCH ×4 (07:06→21:37)
[2017-12-05 07:17] LABS: CALCIUM, SERUM 8.7 mg/dL (8.5-10.1); CREATININE 4.8 mg/dL (0.6-1.3); POTASSIUM 3.8 mmol/L (3.5-5.1)
--- NOTE | 2017-12-05 07:34 | NUR ---
MS/RN OPENING NOTE PATIENT IN BED IN STABLE CONDITION. A/O X 4. NO SIGNS OF ACUTE DISTRESS. NO COMPLAIN OF PAIN OR DISCOMFORT. ALL NEEDS ATTENDED TO. CALL LIGHT WITHIN REACH. WILL CONTINUE TO MONITOR TO ENSURE SAFETY.
[2017-12-05 08:00] VITALS: BP 143/99
[2017-12-05] MEDS: PANTOPRAZOLE 40 MG VIAL IV SCH (09:02)
[2017-12-05] MEDS: ISOSORBIDE DINITRATE (20MG) 20 MG TABLET PO SCH (09:03)
[2017-12-05] MEDS: ASCORBIC ACID 500 MG TABLET PO SCH (09:03)
[2017-12-05] MEDS: SEVELAMER CARBONATE 0.8 GM POWD.PACK GT SCH ×3 (09:03→17:50)
[2017-12-05] MEDS: ASPIRIN 81 MG TAB.CHEW PO SCH (09:03)
[2017-12-05] MEDS: DOXAZOSIN MESYLATE (1 MG) 1 MG TABLET PO SCH (09:04)
[2017-12-05] MEDS: VIT B CMPLX 3/FA/VIT C/BIOTIN 1 TAB TABLET PO SCH (09:04)
[2017-12-05] MEDS: HEPARIN SODIUM, PORCINE 5000 UNITS/1 ML VIAL SQ SCH ×2 (09:04→21:00)
[2017-12-05] MEDS: AMLODIPINE BESYLATE 5 MG TABLET PO SCH (09:04)
[2017-12-05] MEDS: BOOST GLUCOSE CONTROL VANILLA 237 ML BOX PO SCH ×2 (09:05→17:00)
[2017-12-05] MEDS: IV 1/2NS 1000 ML 1,000 ML IV PRN (09:15)
[2017-12-05 16:00] VITALS: BP 150/74
--- NOTE | 2017-12-05 17:00 | NUR ---
MS/RN RECEIVED CALL FROM DR HEAD RECEIVED CALL FROM DR HEAD WITH ORDERS FOR CLEAR LIQUID DIET FOR DINNER TONIGHT, NPO POST MIDNIGHT AND CONSENT FOR I & D OF PERIRECTAL ABSCESS TOMORROW AT 3PM. PATIENT AWARE AND RECEIVED CONSENT.
[2017-12-05] MEDS: ropiniROLE 0.5 MG TABLET PO SCH (17:50)
--- NOTE | 2017-12-05 18:40 | NUR ---
MS/RN CLOSING NOTE PATIENT IN BED IN STABLE CONDITION. A/O X 4. NO SIGNS OF ACUTE DISTRESS. NO COMPLAIN OF PAIN OR DISCOMFORT. CURRENTLY ON GOING DIALYSIS TOLERATING WELL. 5PM MEREM IV ATB UNABLE TO GIVE SECONDARY TO PATIENT C/O IV SITE PAIN UPON FLUSHING. ATTEMPTED TO GET ANOTHER IV ACCESS, BUT SINCE PATIENT HAS DIALYSIS ONGOING PER DIALYSIS NURSE TO HOLD OFF IV ATB AND TRYING GETTING IV ACCESS AFTER DIALYSIS TREATMENT IS DONE. WILL ENDORSE TO NEXT SHIFT TO ADMINISTER IV ATB. ALL NEEDS ATTENDED TO. CALL LIGHT WITHIN REACH. WILL ENDORSE TO NEXT SHIFT FOR CONTINUITY OF CARE.
--- NOTE | 2017-12-05 19:30 | NUR ---
RECEIVED PT IN BED AWAKE AND ALERT. BREATHING EVENLY. NO SOB. NAD. SKIN WARM AND DRY, S/P HD W/ NO COMPLICATIONS. HC INTACT . NO C/O PAIN OR DISCOMFORT . NON WORKING IV SITE TO INSERT A NEW LINE. NEEDS ATTENDED. BED LOW LOCKED .CALL LIGHT WITHIN REACH. WILL CONT TO MONITOR
[2017-12-05 20:00] VITALS: BP 130/77
--- NOTE | 2017-12-05 20:00 | NUR ---
NEW IV LINE 20 G STARTED ON LFA/ L WRIST W/ GOOD BLOOD RETURN.
[2017-12-05] MEDS: DOCUSATE SODIUM 250 MG CAPSULE PO SCH (21:37)
[2017-12-05] MEDS: VANCOMYCIN 500 MG in IV D5W 100 ML IV PRN (21:40)
[2017-12-05] MEDS: ZOLPIDEM TARTRATE 5 MG TABLET PO PRN (21:40)
--- NOTE | 2017-12-05 21:40 | NUR ---
HERRERAIEN GIVEN ORDERED PER PT'S REQUEST FRO C/O INSOMNIA. WILL CONT TO MONITOR ,
[2017-12-06] MEDS: MEROPENEM 500 MG in IV NS 0.9% 50 ML IV SCH ×2 (04:02→17:40)
--- NOTE | 2017-12-06 06:42 | NUR ---
RN CLOSING NOTE; PT IN BED SLEEPING AROUSES EASILY. BREATHING EVENLY. NO ACUTE EVENT DURING THE NIGHT, NO C/O PAIN AT THIS TIME. NPO FOR I&D TODAY. NEEDS ATTENDED. CALL LIGHT WITHIN REACH. WILL CONT TO MONITOR AND WILL ENDORSE TO AM SHIFT FOR SABINA.
[2017-12-06 07:11] LABS: CALCIUM, SERUM 8.8 mg/dL (8.5-10.1); CREATININE 3.9 mg/dL (0.6-1.3); POTASSIUM 3.6 mmol/L (3.5-5.1)
[2017-12-06] MEDS: BLOOD SUGAR DIAGNOSTIC 1 EACH STRIP IN SCH ×4 (07:25→22:04)
[2017-12-06 08:00] VITALS: BP 133/72
[2017-12-06] MEDS: SEVELAMER CARBONATE 0.8 GM POWD.PACK GT SCH ×3 (08:00→17:44)
[2017-12-06] MEDS: BOOST GLUCOSE CONTROL VANILLA 237 ML BOX PO SCH ×2 (08:00→17:00)
--- NOTE | 2017-12-06 08:00 | NUR ---
RN NOTES RECEIVED PATIENT IN THE BED LYING IN THE BED, A/O X3/4, PATIENT NPO AT THIS TIME GOING IN PROCEDURE TODAY, V/S STABLE, IV ACCESS ON LEFT FOREARM INTACT, V/S STABLE, PATIENT TURN AND REPOSITION Q 2 HR, NEEDS ATTENDED AND ANTICIPATED, CALL LIGHT WITHIN TO REACH, CONTINUED MONITORING.
[2017-12-06] MEDS: ASPIRIN 81 MG TAB.CHEW PO SCH (08:39)
[2017-12-06] MEDS: ISOSORBIDE DINITRATE (20MG) 20 MG TABLET PO SCH (08:40)
[2017-12-06] MEDS: DOXAZOSIN MESYLATE (1 MG) 1 MG TABLET PO SCH (08:40)
[2017-12-06] MEDS: VIT B CMPLX 3/FA/VIT C/BIOTIN 1 TAB TABLET PO SCH (08:41)
[2017-12-06] MEDS: AMLODIPINE BESYLATE 5 MG TABLET PO SCH (08:41)
[2017-12-06] MEDS: ASCORBIC ACID 500 MG TABLET PO SCH (08:41)
[2017-12-06] MEDS: HEPARIN SODIUM, PORCINE 5000 UNITS/1 ML VIAL SQ SCH (08:42)
[2017-12-06] MEDS: PANTOPRAZOLE 40 MG VIAL IV SCH (09:42)
[2017-12-06] MEDS ORDERED: ANESTHESIA TRAY IN PYXIS 1 EA TRAY MC ONE (12:04)
--- NOTE | 2017-12-06 12:36 | NUR ---
RN NOTES PATIENT STILL NPO NO ACUTE DISTRESS, REDIRECTABLE, NO ACUTE/ NO RESPIRATORY DISTRESS, CALL LIGHT WITHIN TO REACH, SAFETY PRECAUTION MAINTAINED ALL THE TIME.
--- NOTE | 2017-12-06 13:22 | NUR ---
RN NOTES BS-92 MG/DL, NO COVERAGE GIVEN.
[2017-12-06] MEDS ORDERED: BUPIVACAINE 0.25% 75 MG/30 ML VIAL ONE (14:31)
--- NOTE | 2017-12-06 14:38 | NUR ---
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
[2017-12-06] MEDS ORDERED: SEVOFLURANE 250 ML BOTTLE IH ONE (15:00)
[2017-12-06 16:00] VITALS: BP 151/81
[2017-12-06] MEDS: ropiniROLE 0.5 MG TABLET PO SCH (17:44)
--- NOTE | 2017-12-06 19:34 | NUR ---
RECEIVED PATIENT IN BED ALERT AWAKE DENIES ANY PAIN OR DISCOMFORT, AT THIS TIME, VITAL SIGN STABLE AFEBRILE BREATHING EVEN UNLABORED WILL CONTINUES TO MONITOR THE PATIENT FOR SAFETY AND FALL.
[2017-12-06] MEDS: DOCUSATE SODIUM 250 MG CAPSULE PO SCH (22:04)
[2017-12-06] MEDS: ZOLPIDEM TARTRATE 5 MG TABLET PO PRN (22:15)
[2017-12-07] MEDS: MEROPENEM 500 MG in IV NS 0.9% 50 ML IV SCH ×2 (04:28→17:37)
--- NOTE | 2017-12-07 05:57 | NUR ---
NO CHANGES FROM ALERT ALERT ORIENTED X 4 DENIES ANY PAIN OR DISCOMFORT AT THIS TIME, VITAL SIGN STABLE NO SIGN OF HYPO OR HYPERGLYCEMIA NOTED BREATHING EVEN UNLABORED, SALINE LOCK TO LEFT ARM , SKIN IS INTACT PATENT SACRAL SURGICAL WOUND DRESSING CHANGE Q 12 HRS. WILL CONTINUES TO MONITOR THE PATIENT FOR SAFETY AND FALL.
[2017-12-07 06:52] LABS: BASOPHILS % (AUTO) 0.3 % (0.0-2.0); EOSINOPHILS # (AUTO) 0.3 /CMM (0.0-0.7); EOSINOPHILS % (AUTO) 2.2 % (0.0-6.0); HEMATOCRIT 36 % (39-51); HEMOGLOBIN 12.1 g/dL (13.5-17.5); LYMPHOCYTES # (AUTO) 1.5 /CMM (0.8-4.8); LYMPHOCYTES % (AUTO) 10.1 % (20.0-44.0); MEAN CORPUSCULAR HEMOGLOBIN 30 PG (26.0-33.0); MEAN CORPUSCULAR HGB CONC 33 g/dl (31.0-36.0); MEAN CORPUSCULAR VOLUME 89 fL (80-96); MONOCYTES # (AUTO) 0.8 /CMM (0.1-1.30); MONOCYTES % (AUTO) 5.2 % (2.0-12.0); NEUTROPHILS # (AUTO) 12.4 /CMM (1.8-8.9); NEUTROPHILS % (AUTO) 82.2 % (43.0-81.0); PLATELET COUNT (AUTO) 269 /CMM (150-450); RDW COEFFICIENT OF VARIATION 15.1 (11.5-15.0); RED BLOOD CELL COUNT(AUTO) 4.09 MIL/uL (4.5-6.0); WHITE BLOOD COUNT (AUTO) 15.1 K/uL (4.3-11.0)
[2017-12-07] MEDS: BLOOD SUGAR DIAGNOSTIC 1 EACH STRIP IN SCH ×4 (07:30→21:29)
--- NOTE | 2017-12-07 07:55 | NUR ---
MS RN RECEIVED ON BED, AWAKE,ALERT,ORIENTED X4,NOT IN ANY FORM OF DISTRESS, RESPIRATIONS EVEN AND UNLABORED,NO DISTRESS NOTED,WILL MONITOR PATIENT.
[2017-12-07 08:00] VITALS: BP 144/80
[2017-12-07] MEDS: SEVELAMER CARBONATE 0.8 GM POWD.PACK GT SCH ×3 (08:20→17:37)
[2017-12-07] MEDS: BOOST GLUCOSE CONTROL VANILLA 237 ML BOX PO SCH ×2 (08:21→17:00)
[2017-12-07 08:32] LABS: CALCIUM, SERUM 8.6 mg/dL (8.5-10.1); CREATININE 4.7 mg/dL (0.6-1.3); POTASSIUM 3.7 mmol/L (3.5-5.1)
--- NOTE | 2017-12-07 09:00 | NUR ---
MS RN BREAKFAST SERVED,TOLERATED WELL. HELD MEDS DUE TO PATIENT WILL HAVE DIALYSIS TODAY.
--- NOTE | 2017-12-07 12:00 | NUR ---
MS GALICIA BS - 106 - NO COVERAGE GIVEN.
[2017-12-07] MEDS: ASPIRIN 81 MG TAB.CHEW PO SCH (13:10)
[2017-12-07] MEDS: AMLODIPINE BESYLATE 5 MG TABLET PO SCH (13:10)
[2017-12-07] MEDS: ASCORBIC ACID 500 MG TABLET PO SCH (13:10)
[2017-12-07] MEDS: VIT B CMPLX 3/FA/VIT C/BIOTIN 1 TAB TABLET PO SCH (13:10)
[2017-12-07] MEDS: PANTOPRAZOLE 40 MG VIAL IV SCH (13:10)
[2017-12-07] MEDS: DOXAZOSIN MESYLATE (1 MG) 1 MG TABLET PO SCH (13:11)
[2017-12-07] MEDS: ISOSORBIDE DINITRATE (20MG) 20 MG TABLET PO SCH (13:11)
[2017-12-07 16:02] VITALS: BP 133/74
[2017-12-07] MEDS: ropiniROLE 0.5 MG TABLET PO SCH (17:37)
[2017-12-07] MEDS: VANCOMYCIN 500 MG in IV D5W 100 ML IV PRN (17:45)
--- NOTE | 2017-12-07 18:00 | NUR ---
MS RN ON BED, NO CHANGE OF CONDITION.
--- NOTE | 2017-12-07 19:25 | NUR ---
RN OPENING NOTES PT RESTING IN BED. PT IS AWAKE AND ALERT. NO COMPLAINTS OF PAIN OR DISCOMFORT AT THIS TIME. NO SOB. PT HAS A LEFT FA #20 IV INTACT AND PATENT. SAFETY PRECAUTIONS IN PLACE. BED IN LOW, LOCKED POSITION, [id number] UP, CALL LIGHT WITHIN REACH. WILL CONTINUE TO MONITOR.
[2017-12-07 20:00] VITALS: BP 122/70
[2017-12-07] MEDS: DOCUSATE SODIUM 250 MG CAPSULE PO SCH (21:29)
[2017-12-07] MEDS: CYCLOBENZAPRINE 10 MG TABLET PO PRN (21:29)
--- NOTE | 2017-12-07 21:29 | NUR ---
RN NOTES PT COMPLAINED OF MUSCLE SPASMS OF THE LEGS. WILL ADMINISTER PRN FLEXERIL. WILL CONTINUE TO MONITOR.
[2017-12-07] MEDS: ZOLPIDEM TARTRATE 5 MG TABLET PO PRN (23:07)
--- NOTE | 2017-12-07 23:07 | NUR ---
RN NOTES PT REQUESTED PRN HIRAL FOR SLEEP. WILL ADMINISTER AND CONTINUE TO MONITOR.
[2017-12-08] MEDS: MEROPENEM 500 MG in IV NS 0.9% 50 ML IV SCH ×2 (04:18→16:23)
[2017-12-08 06:49] LABS: POTASSIUM 3.7 mmol/L (3.5-5.1)
--- NOTE | 2017-12-08 07:30 | NUR ---
MS RN NOTES PATIENT IN BED, SLEEPING, AROUSES EASILY. SATING 93% IN ROOM AIR, NO SOB. IVC IN LFA G20 PATENT AND INTACT, FLUSHES WELL. DENIES ANY DISCOMFORT. CALL LIGHT WITHIN REACH. WILL CONT TO MONITOR.
[2017-12-08] MEDS: BLOOD SUGAR DIAGNOSTIC 1 EACH STRIP IN SCH ×4 (07:33→21:26)
--- NOTE | 2017-12-08 07:38 | NUR ---
RN CLOSING NOTES PT RESTING IN BED. PT SLEPT WELL THROUGHOUT THE NIGHT. PT IS AWAKE AND ALERT. NO COMPLAINTS OF PAIN OR DISCOMFORT AT THIS TIME. NO SOB. PT HAS A LEFT FA #20 IV INTACT AND PATENT. SAFETY PRECAUTIONS IN PLACE. BED IN LOW, LOCKED POSITION, [id number] UP, CALL LIGHT WITHIN REACH. WILL ENDORSE TO DAY SHIFT NURSE FOR CONTINUITY OF CARE.
[2017-12-08 08:00] VITALS: BP 121/71
[2017-12-08] MEDS: PANTOPRAZOLE 40 MG VIAL IV SCH (08:49)
[2017-12-08] MEDS: SEVELAMER CARBONATE 0.8 GM POWD.PACK GT SCH ×3 (08:49→18:10)
[2017-12-08] MEDS: DOXAZOSIN MESYLATE (1 MG) 1 MG TABLET PO SCH (08:59)
[2017-12-08] MEDS: ISOSORBIDE DINITRATE (20MG) 20 MG TABLET PO SCH (09:00)
[2017-12-08] MEDS: ASPIRIN 81 MG TAB.CHEW PO SCH (09:01)
[2017-12-08] MEDS: ASCORBIC ACID 500 MG TABLET PO SCH (09:01)
[2017-12-08] MEDS: AMLODIPINE BESYLATE 5 MG TABLET PO SCH (09:01)
[2017-12-08] MEDS: VIT B CMPLX 3/FA/VIT C/BIOTIN 1 TAB TABLET PO SCH (09:01)
[2017-12-08] MEDS: BOOST GLUCOSE CONTROL VANILLA 237 ML BOX PO SCH ×2 (09:03→18:20)
[2017-12-08 09:55] LABS: CREATININE 4.5 mg/dL (0.6-1.3)
[2017-12-08] MEDS: ropiniROLE 0.5 MG TABLET PO SCH (18:10)
--- NOTE | 2017-12-08 18:32 | NUR ---
MS RN CLOSING NOTES PATIENT IN BED, A/O X4. PERINEAL WOUND DRESSING CHANGED, PATIENT IS ON ANTIBIOTIC WITH NO ADVERSE REACTION, AFEBRILE. BLOOD SUGAR MONITORED WITH NO INSULIN COVERAGE ORDERED. NO S/S OF HYPO/HYPERGLYCEMIA. RIGHT IJ PERMA CATH INTACT, NO BLEEDING NOTED. ON CONTACT ISOLATION ESBL URINE. WILL ENDORSE TO GLASS DRILLER RN FOR SABINA.
--- NOTE | 2017-12-08 19:56 | NUR ---
RN OPENING NOTES PT RESTING IN BED. PT IS AWAKE AND ALERT. NO COMPLAINTS OF PAIN OR DISCOMFORT AT THIS TIME. NO SOB. PT HAS A RIGHT FA #22 IV INTACT AND PATENT. SAFETY PRECAUTIONS IN PLACE. BED IN LOW, LOCKED POSITION, X2 SIDE RAILS UP, CALL LIGHT WITHIN REACH. WILL CONTINUE TO MONITOR.
[2017-12-08 20:00] VITALS: BP 155/90
[2017-12-08] MEDS: DOCUSATE SODIUM 250 MG CAPSULE PO SCH (21:26)
[2017-12-09] MEDS: ZOLPIDEM TARTRATE 5 MG TABLET PO PRN ×2 (00:13→23:24)
[2017-12-09] MEDS: MEROPENEM 500 MG in IV NS 0.9% 50 ML IV SCH ×2 (04:14→17:41)
[2017-12-09 06:49] LABS: BASOPHILS # (AUTO) 0.1 /CMM (0.0-0.2); BASOPHILS % (AUTO) 0.7 % (0.0-2.0); EOSINOPHILS # (AUTO) 0.9 /CMM (0.0-0.7); EOSINOPHILS % (AUTO) 4.8 % (0.0-6.0); HEMATOCRIT 35 % (39-51); HEMOGLOBIN 11.8 g/dL (13.5-17.5); LYMPHOCYTES # (AUTO) 1.5 /CMM (0.8-4.8); LYMPHOCYTES % (AUTO) 7.8 % (20.0-44.0); MEAN CORPUSCULAR HEMOGLOBIN 29 PG (26.0-33.0); MEAN CORPUSCULAR HGB CONC 33 g/dl (31.0-36.0); MEAN CORPUSCULAR VOLUME 88 fL (80-96); MONOCYTES % (AUTO) 5.3 % (2.0-12.0); NEUTROPHILS % (AUTO) 81.4 % (43.0-81.0); PLATELET COUNT (AUTO) 279 /CMM (150-450); RDW COEFFICIENT OF VARIATION 15.1 (11.5-15.0); RED BLOOD CELL COUNT(AUTO) 3.99 MIL/uL (4.5-6.0); WHITE BLOOD COUNT (AUTO) 19.6 K/uL (4.3-11.0)
[2017-12-09 06:58] LABS: ALBUMIN 2.7 g/dL (3.4-5.0); CALCIUM, SERUM 8.9 mg/dL (8.5-10.1); CREATININE 4.6 mg/dL (0.6-1.3); POTASSIUM 3.9 mmol/L (3.5-5.1)
[2017-12-09 07:17] LABS: BILIRUBIN,TOTAL 0.7 mg/dL (0.2-1.0); PHOSPHORUS 4.5 mg/dL (2.5-4.9); TOTAL PROTEIN, SERUM 7.4 g/dL (6.4-8.2)
--- NOTE | 2017-12-09 07:23 | NUR ---
RN CLOSING NOTES PT RESTING IN BED. PT IS AWAKE AND ALERT. NO COMPLAINTS OF PAIN OR DISCOMFORT AT THIS TIME. NO SOB. PT HAS A RIGHT FA #22 IV INTACT AND PATENT. WOUND CARE CARRIED OUT ORDERED. SAFETY PRECAUTIONS IN PLACE. BED IN LOW, LOCKED POSITION, X2 SIDE RAILS UP, CALL LIGHT WITHIN REACH. WILL ENDORSE TO DAY SHIFT NURSE FOR CONTINUITY OF CARE.
--- NOTE | 2017-12-09 07:36 | NUR ---
MS RN NOTES PATIENT IN BED, AWAKE. A/O X4. BREATHING EVEN AND NON LABORED, ON ROOM AIR, TOLERATING WELL. RIGHT IJ PERMA CATH INTACT, DRESSING IN PLACE. IVC IN RFA G22 PATENT AND INTACT, FLUSHES WELL. NO C/O ANY DISCOMFORT, APPEARS COMFORTABLE IN BED. ON CONTACT ISOLATION ESBL URINE. CALL LIGHT WITHIN REACH. WILL CONT TO MONITOR.
[2017-12-09 08:00] VITALS: BP 141/81
[2017-12-09] MEDS: SEVELAMER CARBONATE 0.8 GM POWD.PACK GT SCH ×3 (08:20→17:47)
[2017-12-09] MEDS: AMLODIPINE BESYLATE 5 MG TABLET PO SCH (08:21)
[2017-12-09] MEDS: ASCORBIC ACID 500 MG TABLET PO SCH (08:21)
[2017-12-09] MEDS: ASPIRIN 81 MG TAB.CHEW PO SCH (08:21)
[2017-12-09] MEDS: PANTOPRAZOLE 40 MG VIAL IV SCH (08:21)
[2017-12-09] MEDS: VIT B CMPLX 3/FA/VIT C/BIOTIN 1 TAB TABLET PO SCH (08:21)
[2017-12-09] MEDS: ISOSORBIDE DINITRATE (20MG) 20 MG TABLET PO SCH (08:21)
[2017-12-09] MEDS: DOXAZOSIN MESYLATE (1 MG) 1 MG TABLET PO SCH (08:21)
[2017-12-09] MEDS: BLOOD SUGAR DIAGNOSTIC 1 EACH STRIP IN SCH ×4 (08:29→22:18)
[2017-12-09] MEDS: BOOST GLUCOSE CONTROL VANILLA 237 ML BOX PO SCH ×2 (09:07→17:45)
[2017-12-09 09:15] LABS: EOSINOPHILS % (MANUAL) 7 % (0-4); LYMPHOCYTES % (MANUAL) 6 % (16-48); MONOCYTES % (MANUAL) 8 % (0-11.0); NEUTROPHILS % (MANUAL) 79 (42-76)
--- NOTE | 2017-12-09 09:22 | NUR ---
ELEVATED WBC 19.6, ALBUMIN 2.[address] PATRICIA, WITH NO NEW ORDERS AT THIS TIME.
--- NOTE | 2017-12-09 15:40 | NUR ---
DIALYSIS TREATMENT STARTED, DIALYSIS NURSE AT THE BEDSIDE.
[2017-12-09 16:00] VITALS: BP 120/82
[2017-12-09 16:29] VITALS: BP 120/82
[2017-12-09] MEDS: ropiniROLE 0.5 MG TABLET PO SCH (17:47)
--- NOTE | 2017-12-09 17:48 | NUR ---
DIALYSIS TREATMENT DONE WITH 2.5L FLUID OUTPUT PER DIALYSIS NURSE. PATIENT TOLERATED DIALYSIS WELL WITH BP 127/70
--- NOTE | 2017-12-09 18:22 | NUR ---
MS RN CLOSING NOTES PATIENT SITTING UP IN BED, EATING HIS DINNER. A/O X4. HAD BOWEL MOVEMENT TODAY, MODERATE AMT. DRESSING CHANGED IN PERINEAL WOUND. ON ANTIBIOTIC WITH NO ADVERSE REACTION, AFEBRILE. RIGHT IJ PERMA CATH INTACT, NO BLEEDING NOTED. DIALYSIS TREATMENT TOLERATED WELL. ON CONTACT ISOLATION ESBL URINE. CONT HOSPITALIZATION PER MD. WILL ENDORSE TO WAITER/WAITRESS BAR RN FOR SABINA.
--- NOTE | 2017-12-09 19:35 | NUR ---
MS RN OPENING NOTES Received pt in bed awake,alert,verbally responsive respirations even, unlabored,no sob noted.Denies any pain or discomfort at this time. IV site intact, patent.Call light within reach.attended all needs.Will continue to monitor accordingly.
[2017-12-09 20:00] VITALS: BP 123/65
[2017-12-09 20:30] VITALS: BP 123/65
[2017-12-09] MEDS: DOCUSATE SODIUM 250 MG CAPSULE PO SCH (22:00)
[2017-12-10] MEDS: MEROPENEM 500 MG in IV NS 0.9% 50 ML IV SCH (05:09)
[2017-12-10] MEDS: BLOOD SUGAR DIAGNOSTIC 1 EACH STRIP IN SCH ×2 (06:17→12:09)
--- NOTE | 2017-12-10 07:25 | NUR ---
MS RN CLOSING NOTES PT IN BED ASLEEP, RESPIRATIONS EVEN, UNLABORED,NO SOB NOTED. IV SITE INTACT,PATENT, NO S/SX OF PAIN OT DISCOMFORT NOTED.CALL LIGHT WITHIN REACH.ATTENDED ALL PT NEEDS.WILL CONTINUE TO MONITOR ACCORDINGLY.
--- NOTE | 2017-12-10 07:29 | NUR ---
MS RN NOTES PATIENT IN BED, SLEEPING, AROUSES EASILY. BREATHING EVEN AND NON LABORED. IVC IN RFA G18 PATENT AND INTACT, FLUSHES WELL. RIGHT IJ PERMA CATH INTACT, DRESSING IN PLACE, NO BLEEDING NOTED. CALL LIGHT WITHIN REACH. ON CONTACT ISOLATION ESBL URINE. WILL CONT TO MONITOR.
[2017-12-10 07:46] LABS: CALCIUM, SERUM 9.2 mg/dL (8.5-10.1); CREATININE 4.4 mg/dL (0.6-1.3); POTASSIUM 3.8 mmol/L (3.5-5.1)
[2017-12-10 08:00] VITALS: BP 132/80
[2017-12-10] MEDS: ASPIRIN 81 MG TAB.CHEW PO SCH (08:28)
[2017-12-10] MEDS: PANTOPRAZOLE 40 MG VIAL IV SCH (08:28)
[2017-12-10] MEDS: DOXAZOSIN MESYLATE (1 MG) 1 MG TABLET PO SCH (08:28)
[2017-12-10] MEDS: VIT B CMPLX 3/FA/VIT C/BIOTIN 1 TAB TABLET PO SCH (08:28)
[2017-12-10] MEDS: SEVELAMER CARBONATE 0.8 GM POWD.PACK GT SCH ×2 (08:28→12:09)
[2017-12-10] MEDS: ISOSORBIDE DINITRATE (20MG) 20 MG TABLET PO SCH (08:28)
[2017-12-10 08:29] VITALS: BP 132/80
[2017-12-10] MEDS: AMLODIPINE BESYLATE 5 MG TABLET PO SCH (08:29)
[2017-12-10] MEDS: ASCORBIC ACID 500 MG TABLET PO SCH (08:29)
[2017-12-10] MEDS: BOOST GLUCOSE CONTROL VANILLA 237 ML BOX PO SCH (08:32)
[2017-12-10 08:55] LABS: BASOPHILS # (AUTO) 0.1 /CMM (0.0-0.2); BASOPHILS % (AUTO) 0.9 % (0.0-2.0); EOSINOPHILS # (AUTO) 0.9 /CMM (0.0-0.7); EOSINOPHILS % (AUTO) 6.2 % (0.0-6.0); HEMATOCRIT 37 % (39-51); HEMOGLOBIN 12.2 g/dL (13.5-17.5); LYMPHOCYTES # (AUTO) 1.7 /CMM (0.8-4.8); LYMPHOCYTES % (AUTO) 11.3 % (20.0-44.0); MEAN CORPUSCULAR HEMOGLOBIN 29 PG (26.0-33.0); MEAN CORPUSCULAR HGB CONC 33 g/dl (31.0-36.0); MEAN CORPUSCULAR VOLUME 89 fL (80-96); MONOCYTES # (AUTO) 0.9 /CMM (0.1-1.30); NEUTROPHILS # (AUTO) 11.5 /CMM (1.8-8.9); NEUTROPHILS % (AUTO) 75.6 % (43.0-81.0); PLATELET COUNT (AUTO) 244 /CMM (150-450); RDW COEFFICIENT OF VARIATION 15.2 (11.5-15.0); RED BLOOD CELL COUNT(AUTO) 4.16 MIL/uL (4.5-6.0); WHITE BLOOD COUNT (AUTO) 15.2 K/uL (4.3-11.0)
[2017-12-10] MEDS ORDERED: MERO1VIA3 IV (11:05)
--- NOTE | 2017-12-10 11:05 | NUR ---
PATIENT TO BE DISCHARGED TO SNF ORDERED.
--- NOTE | 2017-12-10 14:12 | NUR ---
MS RN DISCHARGED PATIENT HAS BEEN CLEARED FOR DC BY . VS REMAINS STABLE. PERIRECTAL WOUND DRESSING CHANGED. IVC IN RFA REMOVED, GAUZE APPLIED. RIGHT IJ PERMA CATH INTACT, NO BLEEDING NOTED. DISCHARGE INSTRUCTION GIVEN TO THE PATIENT, VERBALIZED UNDERSTANDING. BELONGINGS CHECKED AND SEND WITH THE PATIENT UPON DC. CALLED [facility] SPOKE TO LISSA/RN FOR REPORT. PATIENT LEFT HOSP IN STABLE CONDITION VIA AMBULANCE.
== END 2017-12-10 14:00 | DRG 291 ==
LOC: ER 13:58 → MEDSG2 20:56 → MED 12-07 06:39
PROVIDERS: ADMIT Internal Medicine; ATTEND Internal Medicine
PROC: 5A1D70Z Performance of Urinary Filtration, Intermittent, Less than 6 Hours Per Day (ICD-10-PCS; principal; 2017-11-30 07:30)
PROC: 5A1D70Z Performance of Urinary Filtration, Intermittent, Less than 6 Hours Per Day (ICD-10-PCS; 2017-12-01)
PROC: 5A1D70Z Performance of Urinary Filtration, Intermittent, Less than 6 Hours Per Day (ICD-10-PCS; 2017-12-03)
PROC: 5A1D70Z Performance of Urinary Filtration, Intermittent, Less than 6 Hours Per Day (ICD-10-PCS; 2017-12-05)
PROC: 5A1D70Z Performance of Urinary Filtration, Intermittent, Less than 6 Hours Per Day (ICD-10-PCS; 2017-12-06)
PROC: 0D9Q0ZX Drainage of Anus, Open Approach, Diagnostic (ICD-10-PCS; 2017-12-06)
PROC: 5A1D70Z Performance of Urinary Filtration, Intermittent, Less than 6 Hours Per Day (ICD-10-PCS; 2017-12-09)
DX: I13.0 Hypertensive heart and chronic kidney disease with heart failure and stage 1 through stage 4 chronic kidney disease, or unspecified chronic kidney disease (principal); N17.0 Acute kidney failure with tubular necrosis; E44.0 Moderate protein-calorie malnutrition; B37.0 Candidal stomatitis; E11.22 Type 2 diabetes mellitus with diabetic chronic kidney disease; E83.39 Other disorders of phosphorus metabolism; N18.6 End stage renal disease; N39.0 Urinary tract infection, site not specified; I69.354 Hemiplegia and hemiparesis following cerebral infarction affecting left non-dominant side; K61.0 Anal abscess; E87.8 Other disorders of electrolyte and fluid balance, not elsewhere classified; D64.9 Anemia, unspecified; E11.9 Type 2 diabetes mellitus without complications; I50.9 Heart failure, unspecified; Z79.4 Long term (current) use of insulin; Z79.82 Long term (current) use of aspirin; Z79.899 Other long term (current) drug therapy; E66.9 Obesity, unspecified; Z68.35 Body mass index [BMI] 35.0-35.9, adult; G25.81 Restless legs syndrome; N40.0 Benign prostatic hyperplasia without lower urinary tract symptoms; Z87.440 Personal history of urinary (tract) infections; Z99.2 Dependence on renal dialysis; Z91.81 History of falling; Z86.14 Personal history of Methicillin resistant Staphylococcus aureus infection; K59.00 Constipation, unspecified; Z22.322 Carrier or suspected carrier of Methicillin resistant Staphylococcus aureus; F41.9 Anxiety disorder, unspecified; S31.501A Unspecified open wound of unspecified external genital organs, male, initial encounter; X58.XXXA Exposure to other specified factors, initial encounter; Y92.129 Unspecified place in nursing home as the place of occurrence of the external cause; N50.89 Other specified disorders of the male genital organs; B96.89 Other specified bacterial agents as the cause of diseases classified elsewhere
CPT/HCPCS: 36415; 71045-TC; 80048-TC; 80053-TC; 80061-TC; 80076-TC; 80202-TC; 81000-TC; 82962-TC; 83735-TC; 84100-TC; 84443-TC; 84484-TC; 85025-TC; 86704; 86705; 86706; 86709; 86803; 87070-TC; 87081-TC; 87086-TC; 87186-TC; 87340; 90935-TC; 97110-TC; 97116-TC; 97530-TC; A4216; A4217; A4606; A6253; A6402; A6403; A6407; C1750; C9113; J0690; J0696; J1100; J1644; J1650; J2185; J2250; J2405; J2704; J3010; J3370; J3490; J7040; J7050; J7060; Q9967; Z7610

== ENCOUNTER 2017-12-26 10:17 | Inpatient (IN) | payer OTHER ==
[~2017-12-26] VITALS: Ht 185.4 cm; Wt 105.7 kg
[~2017-12-26 10:17] MED LIST changes: +ACET-2605 PO; +ACET-868 PO; +ASCO500T9 PO; +BISA10SU8 RC; +BLOO-668 IN; +CYCL5TAB PO; +DOCU250C14 PO; +FOLI0.8T23 PO; -FURO40TA5 PO; +HYDR-552 PO; +INSU100V3 SQ; +MAGN400O6 PO; +MERO1VIA3 IV; +NA P133E RC; +ONDA4TAB5 PO; +ROPI0.253 PO; +SACC250C PO; +SODI650T PO; +ZINC220C8 PO; +ZOLP5TAB2 PO
[2017-12-26] MEDS ORDERED: CEFEPIME 1 GM in IV D5W 50 ML IV ONE (10:30)
[2017-12-26] MEDS ORDERED: IV NS 0.9% 500 ML BAG IV ONE ×2 (10:30→14:30)
[2017-12-26] MEDS ORDERED: VANCOMYCIN 1 GM in IV D5W 250 ML IV ONE (10:30)
--- NOTE | 2017-12-26 10:30 | NUR ---
BIB [facility] FOR LOW BP. PATIENT RECEIVED AWAKE AND ALERT, APPEARS IN NIO DISTRESS. RESPIRATION EVEN AND UNLABORED. SKIN IS WARM TO TOUCH AND NON DIAPHORETIC. PATIENT IS AFEBRILE; VSS. HD CATH NOTED ON RCW.
--- NOTE | 2017-12-26 10:39 | NUR ---
CALLED PHARMACY FOR IV ATB
[2017-12-26 10:47] LABS: BASOPHILS # (AUTO) 0.3 /CMM (0.0-0.2); BASOPHILS % (AUTO) 2.3 % (0.0-2.0); EOSINOPHILS % (AUTO) 6.5 % (0.0-6.0); HEMATOCRIT 34 % (39-51); HEMOGLOBIN 11.4 g/dL (13.5-17.5); LYMPHOCYTES # (AUTO) 2.1 /CMM (0.8-4.8); LYMPHOCYTES % (AUTO) 14.3 % (20.0-44.0); MEAN CORPUSCULAR HEMOGLOBIN 30 PG (26.0-33.0); MEAN CORPUSCULAR HGB CONC 34 g/dl (31.0-36.0); MEAN CORPUSCULAR VOLUME 87 fL (80-96); MONOCYTES # (AUTO) 0.7 /CMM (0.1-1.30); MONOCYTES % (AUTO) 4.8 % (2.0-12.0); NEUTROPHILS # (AUTO) 10.7 /CMM (1.8-8.9); NEUTROPHILS % (AUTO) 72.1 % (43.0-81.0); PLATELET COUNT (AUTO) 263 /CMM (150-450); RDW COEFFICIENT OF VARIATION 13.8 (11.5-15.0); RED BLOOD CELL COUNT(AUTO) 3.88 MIL/uL (4.5-6.0); WHITE BLOOD COUNT (AUTO) 14.8 K/uL (4.3-11.0)
--- NOTE | 2017-12-26 10:50 | NUR ---
PATIENT REFUSED STRAIGHT CATHETER STATED " I HAVENT BEEN PEEING FOR A LONG TIME" PT HAS ESRD AND IS ON HD
[2017-12-26 11:03] LABS: INR 0.91 (0.85-1.15)
[2017-12-26 11:06] LABS: ALANINE AMINOTRANSFERASE 41 U/L (12-78); ALBUMIN 3.1 g/dL (3.4-5.0); ALKALINE PHOSPHATASE 136 U/L (46-116); ASPARTATE AMINOTRANSFERASE 30 U/L (15-37); BILIRUBIN,DIRECT 0.2 mg/dL (0.0-0.2); BILIRUBIN,TOTAL 1.1 mg/dL (0.2-1.0); CALCIUM, SERUM 9.1 mg/dL (8.5-10.1); CARBON DIOXIDE 22 mmol/L (21-32); CHLORIDE 100 mmol/L (98-107); GLUCOSE 119 mg/dL (74-106); POTASSIUM 4.6 mmol/L (3.5-5.1); SODIUM SERUM 136 mmol/L (136-145); TOTAL PROTEIN, SERUM 8.1 g/dL (6.4-8.2); UREA NITROGEN, BLOOD 52 mg/dL (7-18)
[2017-12-26 11:11] LABS: TROPONIN I < 0.017 ng/mL (0.00-0.056)
[2017-12-26 11:14] LABS: CREATININE 9.5 mg/dL (0.6-1.3)
--- NOTE | 2017-12-26 12:39 | NUR ---
[facility] PAGED, ALFRED VANEGAS MANAGER CAR
[2017-12-26] MEDS ORDERED: BISACODYL SUPP (10 MG) 10 MG/SUPP.RECT SUPP.RECT RC PRN (13:30)
[2017-12-26] MEDS ORDERED: ONDANSETRON HCL/PF 4 MG/2 ML VIAL IVP PRN (13:30)
[2017-12-26] MEDS ORDERED: DEXTROSE 50%-WATER 50 ML DISP.SYRIN IV PRN (13:30)
[2017-12-26] MEDS ORDERED: MAGNESIUM HYDROXIDE 30 ML UDC PO PRN (13:30)
[2017-12-26] MEDS ORDERED: ACETAMINOPHEN 325 MG TABLET PO PRN (13:30)
[2017-12-26] MEDS ORDERED: Z GUARD REMEDY 2 OZ OINT TP PRN (13:30)
[2017-12-26] MEDS ORDERED: HYDROCODONE/APAP 5/325MG 1 EACH TABLET PO PRN ×2 (13:30)
[2017-12-26] MEDS ORDERED: NA PHOS,M-B/NA PHOS,DI-BA 1 EA ENEMA RC PRN (13:30)
[2017-12-26] MEDS ORDERED: HYDROCODONE/APAP 10/325MG 1 EA TABLET PO PRN (13:30)
[2017-12-26] MEDS ORDERED: MAG HYDROX/AL HYDROX/SIMETH 30 ML UDC PO PRN (13:30)
--- NOTE | 2017-12-26 15:24 | NUR ---
LEONEL 120
--- NOTE | 2017-12-26 15:43 | NUR ---
REPORT GIVEN TO FLOOR NURSE
[2017-12-26] MEDS ORDERED: Medication Not On Formulary EA (Saccharomyces Boulardii (Florastor) 250 MG) PO SCH (17:00)
[2017-12-26] MEDS ORDERED: VANCOMYCIN 500 MG in IV D5W 100 ML IV PRN (17:00)
[2017-12-26] MEDS: ropiniROLE 0.5 MG TABLET PO SCH (17:00)
[2017-12-26] MEDS: CYCLOBENZAPRINE 10 MG TABLET PO SCH (17:00)
[2017-12-26] MEDS: DAKINS QUARTER STRENGTH (0.125%) 480 ML BOTTLE TOP SCH (17:30)
[2017-12-26] MEDS ORDERED: BLOOD SUGAR DIAGNOSTIC 1 EACH STRIP IN SCH (17:30)
[2017-12-26] MEDS: BLOOD SUGAR DIAGNOSTIC 1 EACH STRIP IN SCH ×2 (17:30→22:00)
[2017-12-26] MEDS: MEROPENEM 500 MG in IV NS 0.9% 50 ML IV SCH (18:00)
[2017-12-26] MEDS ORDERED: FEE PK DOSING 1 MIN EA MC ONE (18:40)
--- NOTE | 2017-12-26 19:20 | NUR ---
TELE ADMISSION ELECTRICAL ENGINEERING TECHNICIAN NOTE, RECEIVED REPORT FROM [place]LOTTE GALICIA; PATIENT STABLE, VS HR84 B/P 98/66 O2 SAT 100%RA, T 97.8. ACCU CHECK 87MG/DL. PATIENT CAME IN FOR HYPOTENSION, EPISODES OF CONFUSION. PATIENT STATED, "HAD A STROKE A YEAR AGO CAUSED LEFT SIDED WEAKNESS. MD ORDER WOUND CARE FOR SURGICAL WOUND PERINEUM WITH KERLIX, DAKINS EDUARDO WET TO DRY COVERED WITH MEPILEX. WILL ENDORSE PATIENT TO ROLL OR TAPE EDGE MACHINE OPERATOR NURSE AND TO F/U WITH PT, WOUND CONSULT, URINE CULTURE TO BE OBTAINED, AND WHEN NEXT HD TO BE DONE. PATIENT REQUEST TO CONTACT [facility] FOR MEDICAL UPDATES [phone]
[2017-12-26 20:00] VITALS: BP 118/69
--- NOTE | 2017-12-26 20:00 | NUR ---
RN NOTES RECEIVED PATIENT AWAKE IN BED WITH NO RESPIRATORY DISTRESS OR SHORTNESS OF BREATH. BREATHING EVEN AND UNLABORED. ON ROOM AIR WITH O2 SAT OF 96-98%. NO COMPLAINT OF PAIN OR DISCOMFORT. ALERT AND ORIENTED. VERBALLY ABLE TO COMMUNICATE NEEDS. WILL CONTINUE TO MONITOR
[2017-12-26] MEDS: DOCUSATE SODIUM 250 MG CAPSULE PO SCH (22:55)
[2017-12-26] MEDS: INSULIN REGULAR, HUMAN 100 UNIT/ML 3 ML VIAL SQ PRN (22:56)
[2017-12-27] VITALS: BP 132/75
[2017-12-27 04:00] VITALS: BP_SYST 111; BP_SYST 138; BP_DIAS 70; BP_DIAS 73
--- NOTE | 2017-12-27 06:22 | NUR ---
RN CLOSING NOTES NO SIGNIFICANT CHANGE OF CONDITION. VITAL SIGNS WNL. NO COMPLAINT OF PAIN OR DISCOMFORT. NO SHORTNESS OF BREATH NOTED. ALERT AND ORIENTED. WILL ENDORSE TO AM SHIFT FOR CONTINUITY OF CARE.
[2017-12-27] MEDS: INSULIN REGULAR, HUMAN 100 UNIT/ML 3 ML VIAL SQ PRN ×2 (06:36→21:47)
[2017-12-27] MEDS: BLOOD SUGAR DIAGNOSTIC 1 EACH STRIP IN SCH ×4 (06:36→21:46)
[2017-12-27 07:00] LABS: CALCIUM, SERUM 8.8 mg/dL (8.5-10.1); MAGNESIUM 2.5 mg/dL (1.8-2.4); POTASSIUM 4.1 mmol/L (3.5-5.1)
[2017-12-27 07:05] LABS: BASOPHILS # (AUTO) 0.1 /CMM (0.0-0.2); EOSINOPHILS # (AUTO) 1.4 /CMM (0.0-0.7); EOSINOPHILS % (AUTO) 10.6 % (0.0-6.0); HEMATOCRIT 31 % (39-51); HEMOGLOBIN 10.4 g/dL (13.5-17.5); LYMPHOCYTES # (AUTO) 1.5 /CMM (0.8-4.8); MEAN CORPUSCULAR HEMOGLOBIN 30 PG (26.0-33.0); MEAN CORPUSCULAR HGB CONC 34 g/dl (31.0-36.0); MEAN CORPUSCULAR VOLUME 89 fL (80-96); MONOCYTES # (AUTO) 0.6 /CMM (0.1-1.30); MONOCYTES % (AUTO) 4.9 % (2.0-12.0); NEUTROPHILS # (AUTO) 9.6 /CMM (1.8-8.9); NEUTROPHILS % (AUTO) 72.5 % (43.0-81.0); PLATELET COUNT (AUTO) 242 /CMM (150-450); RDW COEFFICIENT OF VARIATION 14.4 (11.5-15.0); RED BLOOD CELL COUNT(AUTO) 3.48 MIL/uL (4.5-6.0); WHITE BLOOD COUNT (AUTO) 13.3 K/uL (4.3-11.0)
[2017-12-27 07:22] LABS: THYROID STIMULATING HORMONE 0.473 uIU/mL (0.358-3.74)
[2017-12-27 07:34] LABS: CREATININE 11.2 mg/dL (0.6-1.3)
[2017-12-27 08:00] VITALS: BP 112/72
[2017-12-27] MEDS: FOLIC ACID 1 MG TABLET PO SCH (08:13)
[2017-12-27] MEDS: LOSARTAN POTASSIUM 50 MG TABLET PO SCH (08:13)
[2017-12-27] MEDS: CYCLOBENZAPRINE 10 MG TABLET PO SCH ×3 (08:13→17:22)
[2017-12-27] MEDS: ASCORBIC ACID 500 MG TABLET PO SCH (08:13)
[2017-12-27] MEDS: ZINC SULFATE 220 MG CAPSULE PO SCH (08:13)
[2017-12-27] MEDS: ropiniROLE 0.5 MG TABLET PO SCH ×2 (08:13→17:22)
[2017-12-27] MEDS: DAKINS QUARTER STRENGTH (0.125%) 480 ML BOTTLE TOP SCH ×2 (08:14→17:00)
[2017-12-27] MEDS: ASPIRIN 81 MG TAB.CHEW PO SCH (08:14)
[2017-12-27] MEDS ORDERED: DOXAZOSIN MESYLATE (1 MG) 1 MG TABLET PO SCH (09:00)
[2017-12-27] MEDS ORDERED: DAKINS QUARTER STRENGTH (0.125%) 480 ML BOTTLE TOP SCH (09:00)
[2017-12-27] MEDS ORDERED: AMLODIPINE BESYLATE 5 MG TABLET PO SCH (09:00)
[2017-12-27] MEDS ORDERED: ISOSORBIDE DINITRATE (20MG) 20 MG TABLET PO SCH (09:00)
[2017-12-27] MEDS ORDERED: SODIUM BICARBONATE 650 MG TABLET PO SCH (09:00)
[2017-12-27 12:00] VITALS: BP 121/70
--- NOTE | 2017-12-27 15:42 | NUR ---
Patient is alert and oriented; he resides at [facility] [phone], he receives hemodialysis every TTHS @ [facility] [phone]. Current plan is to return to [facility] once discharge. Addendum: 12/27/17 at 1543 by MINDY TRUONG RN Amended: Links added.
[2017-12-27 16:00] VITALS: BP 111/73
[2017-12-27] MEDS: MEROPENEM 500 MG in IV NS 0.9% 50 ML IV SCH (17:22)
[2017-12-27] MEDS: LACTOBACILLUS RHAMNOSUS GG 1 EACH CAP.SPRINK PO SCH (17:22)
[2017-12-27] MEDS ORDERED: VANCOMYCIN 1 GM in IV D5W 250 ML IV ONE (18:00)
--- NOTE | 2017-12-27 18:32 | NUR ---
Tele/RN - Notes Patient A/O x 4, denies pain, not in any form of distress, remain afebrile, tele shows SR. HD treatment done today, 1 liter out, tolerated well. Wound treatment done as ordered. Patient independent with bed mobility. All needs attended and met. Will continue with current medical management.
[2017-12-27 20:00] VITALS: BP 112/55
--- NOTE | 2017-12-27 20:17 | NUR ---
RN NOTES RECEIVED PATIENT AWAKE IN BED WATCHING TV WITH NO RESPIRATORY DISTRESS OR SHORTNESS OF BREATH. BREATHING EVEN AND UNLABORED. DENIES PAIN OR ANY DISCOMFORT. ALERT AND ORIENTED. ABLE TO COMMUNICATE NEEDS VERBALLY. WILL CONTINUE TO MONITOR.
[2017-12-27] MEDS: DOCUSATE SODIUM 250 MG CAPSULE PO SCH (21:40)
[2017-12-28] VITALS (7 sets, daily range): BP systolic 106–116; BP diastolic 50–78
--- NOTE | 2017-12-28 06:44 | NUR ---
RN CLOSING NOTES IN BED SLEEPING WITH NO DISTRESS NOTED. NO SIGNIFICANT CHANGE OF CONDITION. VITAL SIGNS WNL. WILL ENDORSE TO AM SHIFT FOR CONTINUITY OF CARE
[2017-12-28] MEDS: INSULIN REGULAR, HUMAN 100 UNIT/ML 3 ML VIAL SQ PRN ×2 (07:03→17:51)
[2017-12-28] MEDS: BLOOD SUGAR DIAGNOSTIC 1 EACH STRIP IN SCH ×4 (07:03→21:05)
[2017-12-28 07:40] LABS: POTASSIUM 4.2 mmol/L (3.5-5.1)
[2017-12-28 07:41] LABS: CREATININE 9.9 mg/dL (0.6-1.3)
--- NOTE | 2017-12-28 07:56 | NUR ---
RN NOTE: PATIENT RECEIVED ALERT AWAKE ORIENTED X4. ON ROOM AIR, NO BREATHING DIFFICULTY NOTED. ON TELE MONITOR SINUS RHYTHM. APPEARS COMFORTABLE. IV CATHETER & DIALYSIS CATH INTACT. SAFETY MEASURES OBSERVED. CALL LIGHT WITHIN REACH. WILL CONTINUE TO MONITOR.
[2017-12-28] MEDS: ASCORBIC ACID 500 MG TABLET PO SCH (08:36)
[2017-12-28] MEDS: FOLIC ACID 1 MG TABLET PO SCH (08:36)
[2017-12-28] MEDS: ZINC SULFATE 220 MG CAPSULE PO SCH (08:36)
[2017-12-28] MEDS: LACTOBACILLUS RHAMNOSUS GG 1 EACH CAP.SPRINK PO SCH ×2 (08:36→16:53)
[2017-12-28] MEDS: CYCLOBENZAPRINE 10 MG TABLET PO SCH ×3 (08:36→18:55)
[2017-12-28] MEDS: ASPIRIN 81 MG TAB.CHEW PO SCH (08:36)
[2017-12-28] MEDS: ropiniROLE 0.5 MG TABLET PO SCH ×2 (08:36→16:53)
[2017-12-28] MEDS: DAKINS QUARTER STRENGTH (0.125%) 480 ML BOTTLE TOP SCH ×2 (08:37→16:55)
[2017-12-28 09:09] LABS: BASOPHILS # (AUTO) 0.1 /CMM (0.0-0.2); BASOPHILS % (AUTO) 1.1 % (0.0-2.0); EOSINOPHILS # (AUTO) 1.2 /CMM (0.0-0.7); EOSINOPHILS % (AUTO) 10.9 % (0.0-6.0); HEMATOCRIT 33 % (39-51); LYMPHOCYTES # (AUTO) 1.6 /CMM (0.8-4.8); LYMPHOCYTES % (AUTO) 15.1 % (20.0-44.0); MEAN CORPUSCULAR HEMOGLOBIN 30 PG (26.0-33.0); MEAN CORPUSCULAR HGB CONC 34 g/dl (31.0-36.0); MEAN CORPUSCULAR VOLUME 88 fL (80-96); MONOCYTES # (AUTO) 0.7 /CMM (0.1-1.30); MONOCYTES % (AUTO) 6.6 % (2.0-12.0); NEUTROPHILS # (AUTO) 7.1 /CMM (1.8-8.9); NEUTROPHILS % (AUTO) 66.3 % (43.0-81.0); PLATELET COUNT (AUTO) 227 /CMM (150-450); RDW COEFFICIENT OF VARIATION 14.4 (11.5-15.0); RED BLOOD CELL COUNT(AUTO) 3.71 MIL/uL (4.5-6.0); WHITE BLOOD COUNT (AUTO) 10.7 K/uL (4.3-11.0)
[2017-12-28] MEDS ORDERED: VANCOMYCIN 1 GM in IV D5W 250 ML IV ONE (17:00)
[2017-12-28] MEDS: MEROPENEM 500 MG in IV NS 0.9% 50 ML IV SCH (18:55)
--- NOTE | 2017-12-28 19:13 | NUR ---
RN NOTES: NO SIGNIFICANT CHANGES NOTED DURING SHIFT. ON ROOM AIR, NO BREATHING DIFFICULTY NOTED. S/P HEMODIALYSIS TODAY. VANCO IV GIVEN POST HD ORDERED. WOUND CARE DONE. PT NOTED INDEPENDENT WITH BED MOBILITY. ENCOURAGED WITH REPOSITIONING. SAFETY MEASURES OBSERVED. CALL LIGHT WITHIN REACH. CONTINUE TO MONITOR.
--- NOTE | 2017-12-28 19:49 | NUR ---
RN NOTE PATIENT IS STABLE, ALERT/ORIENTED X 4, NO RESPIRATORY DISTRESS NOTED, ONGOING IV ANTIBIOTIC, ALL SAFETY MEASURES TAKEN, WILL CONTINUE TO MONITOR PATIENT
[2017-12-28] MEDS: DOCUSATE SODIUM 250 MG CAPSULE PO SCH (21:05)
[2017-12-29 04:00] VITALS: BP 114/64
[2017-12-29 07:15] LABS: CALCIUM, SERUM 8.8 mg/dL (8.5-10.1); CREATININE 7.1 mg/dL (0.6-1.3); POTASSIUM 3.9 mmol/L (3.5-5.1)
--- NOTE | 2017-12-29 07:35 | NUR ---
RN M/S NOTE: RECEIVED PT IN BED, ASLEEP BUT AROUSABLE WHEN CALLING HIS NAME. RESPIRATION EVEN AND UNLABORED. SATURATING WELL IN RA 98%. DENIED PAIN. (R) CHEST HD CATH NOTED W/ INTACT AND CLEAN DRESSING. (L) HAND IV LINE NOTED INTACT AND PATENT. BED ALARM AND LOCKED AT ALL TIMES. CALL LIGHT WITHIN REACH. NEEDS ANTICIPATED.
--- NOTE | 2017-12-29 07:35 | NUR ---
FRIDA M/S NOTE: RECEIVED PT IN BED, ASLEEP BUT AROUSABLE WHEN CALLING HIS NAME. RESPIRATION EVEN AND UNLABORED. SATURATING @ Addendum: 12/29/17 at 1808 by CHEO ELLER RN ERROR
[2017-12-29 08:00] VITALS: BP 95/71
[2017-12-29] MEDS: BLOOD SUGAR DIAGNOSTIC 1 EACH STRIP IN SCH ×2 (08:04→11:41)
--- NOTE | 2017-12-29 08:14 | NUR ---
RN NOTE NO CHANGES DURING MY SHIFT, PATIENT RESTED WELL, NO DISTRESS NOTED, ALL SAFETY MEASURES TAKEN, PROVIDED REPORT TO AM NURSE
[2017-12-29] MEDS: ASPIRIN 81 MG TAB.CHEW PO SCH (09:55)
[2017-12-29] MEDS: CYCLOBENZAPRINE 10 MG TABLET PO SCH ×2 (09:55→12:36)
[2017-12-29] MEDS: LOSARTAN POTASSIUM 50 MG TABLET PO SCH (09:55)
[2017-12-29] MEDS: FOLIC ACID 1 MG TABLET PO SCH (09:55)
[2017-12-29] MEDS: ZINC SULFATE 220 MG CAPSULE PO SCH (09:55)
[2017-12-29] MEDS: ASCORBIC ACID 500 MG TABLET PO SCH (09:55)
[2017-12-29] MEDS: DAKINS QUARTER STRENGTH (0.125%) 480 ML BOTTLE TOP SCH (09:56)
[2017-12-29] MEDS: LACTOBACILLUS RHAMNOSUS GG 1 EACH CAP.SPRINK PO SCH (09:56)
[2017-12-29] MEDS: ropiniROLE 0.5 MG TABLET PO SCH (09:56)
--- NOTE | 2017-12-29 10:00 | NUR ---
RN M/S NOTE: WOUND TREATMENT ON THE PERINEUM AREA DONE PER MD ORDER. PICTURE WAS TAKEN AND FILED ON THE PT'S CHART. PATIENT TOLERATED IT WELL. DENIED PAIN BEFORE, DURING AND AFTER TREATMENT.
[2017-12-29] MEDS: INSULIN REGULAR, HUMAN 100 UNIT/ML 3 ML VIAL SQ PRN (12:17)
[2017-12-29] MEDS ORDERED: VANC1PLA13 IV (13:06)
[2017-12-29] MEDS ORDERED: RXVAN XX (13:06)
[2017-12-29] MEDS ORDERED: MERO500V3 IV (13:06)
--- NOTE | 2017-12-29 15:00 | NUR ---
RN M/S NOTE: CALLED AND SPOKE WITH FRIDA PRADO FROM [facility] AND GAVE REPORT RE: THE PATIENT'S DISCHARGE TODAY FROM THE HOSPITAL. INFORMED HER ABOUT THE CONTINUING MEDICATIONS INCLUDING THE CONTINUIATION OF IV ANTIBIOTICS (VANCOMYCIN AND MEROPENEM) X 11 DAYS. EMPHASIZED THAT PT NEEDS TO RECEIVE A DOSE OF THE MEROPENEM @1800 TODAY. SHE WAS ALSO MADE AWARE THAT THE PT HAS A (L) UA 18G MIDLINE INSERTED TODAY. FRIDA PRADO WAS MADE AWARE THAT ALL DISCHARGE INSTRUCTIONS WILL BE SEND W/ THE PT UPON DISCHARGE.
--- NOTE | 2017-12-29 15:30 | NUR ---
RN M/S NOTE: TOOK A PICTURE OF THE PT'S (R) CHEST HD CATH AND (L) UA MIDLINE 18G NOTED W/ CLEAN AND DRY DRESSING. DATED, INITIALED AND FILED ON THE PATIENT'S CHART.
[2017-12-29 15:45] VITALS: BP 115/72
--- NOTE | 2017-12-29 15:45 | NUR ---
RN M/S NOTE: PATIENT WAS PROVIDED W/ HIS DISCHARGE INSTRUCTIONS, HE VERBALIZED UNDERSTANDING. EMPHASIZED W/ HIM THAT HE NEEDS TO CONTINUE AND FINISH THE REMAINING COURSE OF ANTIBIOTIC AT [facility]. PATIENT SIGNED HIS DISHARGE INSTRUCTIONS AND BELONGING LIST.
--- NOTE | 2017-12-29 16:00 | NUR ---
RN M/S NOTE: PATIENT WAS PICKED UP BY 2 fiber worker OF [facility] VIA [facility]. PROVIDED PERTINENT INFORMATION RE: PATIENT'S DISCHARGE BACK TO [facility]. INFORMED THAT FRIDA PRADO WAS GIVEN REPORT RE: PT'S DISCHARGE INSTRUCTIONS. PT REMAINED ON STABLE CONDITION. REMAINED ALERT, ORIENTED AND VERBALLY RESPONSIVE. RESPIRATION EVEN AND UNLABORED. SATURATING 96% ON RA. DENIED PAIN. (R) CHEST HD CATH AND (L) UA MIDLINE NOTED W/ DRESSING CLEAN AND DRY. PERINEUM WOUND DRESSING REMAINED INTACT. ALL BELONGINGS AND DISCHARGE PAPER WAS SENT OUT W/ THE PATIENT UPON DISCHARGE.
== END 2017-12-29 15:52 | DRG 871 ==
LOC: ER 10:18 → MEDSG1 15:56 → TELE1 17:44 → MEDSG1 12-28 11:29
PROVIDERS: ADMIT Nurse Practitioner Acute Care; ATTEND Nurse Practitioner Acute Care
DX: A41.9 Sepsis, unspecified organism (principal); N18.6 End stage renal disease; G93.40 Encephalopathy, unspecified; I13.2 Hypertensive heart and chronic kidney disease with heart failure and with stage 5 chronic kidney disease, or end stage renal disease; E46 Unspecified protein-calorie malnutrition; I69.354 Hemiplegia and hemiparesis following cerebral infarction affecting left non-dominant side; E11.22 Type 2 diabetes mellitus with diabetic chronic kidney disease; Z99.2 Dependence on renal dialysis; N40.0 Benign prostatic hyperplasia without lower urinary tract symptoms; Z79.4 Long term (current) use of insulin; Z79.82 Long term (current) use of aspirin; Z79.899 Other long term (current) drug therapy; D63.8 Anemia in other chronic diseases classified elsewhere; F41.9 Anxiety disorder, unspecified; I50.9 Heart failure, unspecified; Z87.440 Personal history of urinary (tract) infections; E66.01 Morbid (severe) obesity due to excess calories
CPT/HCPCS: 36415; 70450-TC; 71045-TC; 80048-TC; 80061-TC; 80076-TC; 80202-TC; 82962-TC; 83605-TC; 83735-TC; 84100-TC; 84443-TC; 84484-TC; 85025-TC; 85730-TC; 87040-TC; 87081-TC; 90935-TC; A4216; A4606; A6403; J0692; J1815; J2185; J3370; J7040; J7060; Z7610

== ENCOUNTER 2018-03-02 14:21 | Inpatient (IN) | payer OTHER ==
[~2018-03-02] VITALS: Ht 188 cm; Wt 103.1 kg
[~2018-03-02 14:21] MED LIST changes: -AMLO5TAB2 PO; -DOXA1TAB2 PO; -ISOS20TA8 PO; -LOSA50TA21 PO; -MERO1VIA3 IV; +MERO500V3 IV; -ONDA4TAB5 PO; -ROPI0.253 PO; +ROPI0.255 PO; +RXVAN XX; +VANC1PLA13 IV; -ZOLP5TAB2 PO
--- NOTE | 2018-03-02 14:50 | NUR ---
PT TO ED ROOM 10. BIB PRIVATE EMT FROM [facility] TO BE ADMITTED FOR A KIDNEY BIOPSY. A/A/O. NAD. VS WNL. CHANGED TO GOWN. CONNECTED TO MONITOR. AWAITING EVALUATION BY ER PROVIDER.
--- NOTE | 2018-03-02 14:55 | NUR ---
L AC G 18 IV STARTED. BLOOD TESTS DRAWN AND SEND TO LAB.
[2018-03-02 15:19] LABS: BASOPHILS % (AUTO) 0.2 % (0.0-2.0); EOSINOPHILS % (AUTO) 5.4 % (0.0-6.0); HEMATOCRIT 39 % (39-51); HEMOGLOBIN 13.2 g/dL (13.5-17.5); LYMPHOCYTES # (AUTO) 2.3 /CMM (0.8-4.8); LYMPHOCYTES % (AUTO) 17.1 % (20.0-44.0); MEAN CORPUSCULAR HGB CONC 34 g/dl (31.0-36.0); MEAN CORPUSCULAR VOLUME 93 fL (80-96); MONOCYTES # (AUTO) 0.6 /CMM (0.1-1.30); MONOCYTES % (AUTO) 4.7 % (2.0-12.0); NEUTROPHILS # (AUTO) 9.8 /CMM (1.8-8.9); NEUTROPHILS % (AUTO) 72.6 % (43.0-81.0); PLATELET COUNT (AUTO) 320 /CMM (150-450); RDW COEFFICIENT OF VARIATION 16.1 (11.5-15.0); RED BLOOD CELL COUNT(AUTO) 4.19 MIL/uL (4.5-6.0); WHITE BLOOD COUNT (AUTO) 13.4 K/uL (4.3-11.0)
[2018-03-02] MEDS ORDERED: SEVE800T8 PO (15:29)
[2018-03-02] MEDS ORDERED: CRAN425C6 PO (15:29)
[2018-03-02] MEDS ORDERED: ATOR10TA PO (15:29)
[2018-03-02 15:30] LABS: CREATININE 7.4 mg/dL (0.6-1.3)
[2018-03-02 15:33] LABS: INR 0.91 (0.85-1.15)
--- NOTE | 2018-03-02 15:48 | NUR ---
CALLED NURSE SUP FOR MEDSURG BED
--- NOTE | 2018-03-02 15:50 | NUR ---
205-2 [facility]
--- NOTE | 2018-03-02 16:14 | NUR ---
REPORT GIVEN TO MS NURSE 205-2.
[2018-03-02 17:00] VITALS: BP 164/99
[2018-03-02] MEDS ORDERED: INSULIN REGULAR, HUMAN 100 UNIT/ML 3 ML VIAL SQ PRN (17:00)
[2018-03-02] MEDS ORDERED: Z GUARD REMEDY 2 OZ OINT TP PRN (17:00)
[2018-03-02] MEDS ORDERED: HYDROCODONE/APAP 5/325MG 1 EACH TABLET PO PRN (17:00)
[2018-03-02] MEDS ORDERED: ACETAMINOPHEN 325 MG TABLET PO PRN ×2 (17:00)
[2018-03-02] MEDS ORDERED: *INSULIN REGULAR(HUMULIN R)HUM 100 UNIT/ML VIAL SQ PRN (17:00)
[2018-03-02] MEDS ORDERED: ZOLPIDEM TARTRATE 5 MG TABLET PO PRN (17:00)
[2018-03-02] MEDS ORDERED: ACETAMINOPHEN ES 500 MG TABLET PO PRN (17:00)
[2018-03-02] MEDS ORDERED: NA PHOS,M-B/NA PHOS,DI-BA 1 EA ENEMA RC PRN (17:00)
[2018-03-02] MEDS ORDERED: MAG HYDROX/AL HYDROX/SIMETH 30 ML UDC PO PRN (17:00)
[2018-03-02] MEDS ORDERED: BISACODYL SUPP (10 MG) 10 MG/SUPP.RECT SUPP.RECT RC PRN (17:00)
[2018-03-02] MEDS ORDERED: DEXTROSE 50%-WATER 50 ML DISP.SYRIN IV PRN (17:00)
[2018-03-02] MEDS ORDERED: MAGNESIUM HYDROXIDE 30 ML UDC PO PRN ×2 (17:00)
--- NOTE | 2018-03-02 17:00 | NUR ---
MS INTERIOR ASSEMBLIES INSTALLER NOTE RECEIVED PATIENT IN STABLE CONDITION FROM EMERGENCY ROOM. NO PAIN AT THIS TIME. NO SOB OR DISTRESS NOTED. CALL LIGHT WITHIN REACH. SAFETY MEASURES IMPLEMENTED. IV ON LEFT AC INTACT AND PATENT NO REDNESS OR SWELLING NOTED. ABLE TO COMMUNICATE NEEDS. ALL BELONGINGS ACCOUNTED FOR AND AT BEDSIDE. AWAITING MD ORDERS. WILL CONTINUE TO MONITOR THROUGHOUT SHIFT
[2018-03-02] MEDS: CYCLOBENZAPRINE 10 MG TABLET PO SCH (17:07)
[2018-03-02] MEDS: BLOOD SUGAR DIAGNOSTIC 1 EACH STRIP VI SCH ×2 (17:07→21:27)
[2018-03-02] MEDS: SEVELAMER CARBONATE 800 MG TABLET PO SCH (17:07)
[2018-03-02 17:41] VITALS: BP 164/99
--- NOTE | 2018-03-02 18:37 | NUR ---
RN CLOSING NOTE PATIENT IS IN BED AT THIS TIME RESTING COMFORTABLY AT THIS TIME. NO SOB OR DISTRESS NOTED. CALL LIGHT WITHIN REACH AT ALL TIMES. SAFETY MEASURES IMPLEMENTED. ABLE TO COMMUNICATE NEEDS. IV INTACT AND PATENT NO REDNESS OR SWELLING NOTED. HD CATH ON RIGHT UPPER CHEST WALL INTACT AND PATENT. ALL DUE MEDICATIONS GIVEN ORDERED. BLOOD SUGAR MONITORED AND NO INSULIN REQUIRED. TO BE NPO FOR BIOPSY IN THE MORNING. WILL ENDORSE TO PUBLIC HOUSING INTERVIEWER NURSE FOR SABINA
--- NOTE | 2018-03-02 19:30 | NUR ---
RN NOTES RECEIVED PATIENT IN BED AWAKE, AO X 3, ABLE TO MAKE NEEDS KNOWN. NO ACUTE DISTRESS NOTED. IV SITE PATENT, INTACT; FLUSHED. SAFETY REMINDERS GIVEN. ON LOW BED WITH BILATERAL UPPER SIDE RAILS UP. CALL HOOVER WITHIN EASY REACH. WILL CONTINUE TO MONITOR.
[2018-03-02 19:56] VITALS: BP 136/71
[2018-03-02 20:00] VITALS: BP 131/74
[2018-03-02] MEDS: ATORVASTATIN 10 MG TABLET PO SCH (21:27)
[2018-03-02] MEDS: DOCUSATE SODIUM 250 MG CAPSULE PO SCH (21:27)
[2018-03-02] MEDS: ropiniROLE 0.5 MG TABLET PO SCH (21:27)
--- NOTE | 2018-03-03 06:12 | NUR ---
RN NOTES PATIENT ASLEEP, EASILY AROUSABLE. RESPIRATIONS EVEN. NO SIGNS OF PAIN NOTED. NPO SINCE MIDNIGHT. DUE MEDS GIVEN WITH NO ASE NOTED. NEEDS ATTENDED. KEPT CLEAN, DRY, AND COMFORTABLE. SAFETY PRECAUTIONS AND COMFORT MEASURES IN PLACE. WILL GIVE REPORT TO DAY SHIFT FOR CONTINUITY OF CARE.
[2018-03-03] MEDS: BLOOD SUGAR DIAGNOSTIC 1 EACH STRIP VI SCH ×4 (06:37→21:12)
--- NOTE | 2018-03-03 07:20 | NUR ---
RN OPENING NOTES RECEIVED PATIENT IN BED AWAKE, AO X 3, ABLE TO MAKE NEEDS KNOWN. NO ACUTE DISTRESS, NO SOB NOTED. IV SITE PATENT, INTACT; FLUSHED. SAFETY REMINDERS GIVEN. ON LOW/LOCKED BED WITH BILATERAL UPPER SIDE RAILS UP. CALL HOOVER WITHIN EASY REACH. WILL CONTINUE TO MONITOR ACCORDINGLY
[2018-03-03 08:09] VITALS: BP 165/103
[2018-03-03 08:09] LABS: BASOPHILS # (AUTO) 0.1 /CMM (0.0-0.2); BASOPHILS % (AUTO) 0.7 % (0.0-2.0); EOSINOPHILS % (AUTO) 4.9 % (0.0-6.0); HEMATOCRIT 36 % (39-51); HEMOGLOBIN 12.1 g/dL (13.5-17.5); LYMPHOCYTES # (AUTO) 1.9 /CMM (0.8-4.8); LYMPHOCYTES % (AUTO) 13.1 % (20.0-44.0); MEAN CORPUSCULAR HGB CONC 34 g/dl (31.0-36.0); MEAN CORPUSCULAR VOLUME 93 fL (80-96); MONOCYTES # (AUTO) 0.8 /CMM (0.1-1.30); MONOCYTES % (AUTO) 5.2 % (2.0-12.0); NEUTROPHILS # (AUTO) 11.3 /CMM (1.8-8.9); NEUTROPHILS % (AUTO) 76.1 % (43.0-81.0); PLATELET COUNT (AUTO) 287 /CMM (150-450); RDW COEFFICIENT OF VARIATION 16.9 (11.5-15.0); RED BLOOD CELL COUNT(AUTO) 3.88 MIL/uL (4.5-6.0); WHITE BLOOD COUNT (AUTO) 14.8 K/uL (4.3-11.0)
[2018-03-03 08:16] LABS: CALCIUM, SERUM 9.4 mg/dL (8.5-10.1); MAGNESIUM 2.5 mg/dL (1.8-2.4); PHOSPHORUS 6.3 mg/dL (2.5-4.9); POTASSIUM 4.3 mmol/L (3.5-5.1)
[2018-03-03] MEDS ORDERED: Medication Not On Formulary EA (Cranberry Extract (Cranberry) 425 MG) PO SCH (09:00)
[2018-03-03] MEDS: ASCORBIC ACID 500 MG TABLET PO SCH (09:06)
[2018-03-03] MEDS: VIT B CMPLX 3/FA/VIT C/BIOTIN 1 TAB TABLET PO SCH (09:07)
[2018-03-03] MEDS: ZINC SULFATE 220 MG CAPSULE PO SCH (09:07)
[2018-03-03] MEDS: CYCLOBENZAPRINE 10 MG TABLET PO SCH ×3 (09:07→17:03)
[2018-03-03] MEDS: SEVELAMER CARBONATE 800 MG TABLET PO SCH ×3 (09:11→17:04)
[2018-03-03] MEDS: SODIUM BICARBONATE 650 MG TABLET PO SCH (10:30)
[2018-03-03 10:39] LABS: EOSINOPHILS % (MANUAL) 7 % (0-4); LYMPHOCYTES % (MANUAL) 16 % (16-48); MONOCYTES % (MANUAL) 5 % (0-11.0); NEUTROPHILS % (MANUAL) 72 (42-76)
[2018-03-03] MEDS ORDERED: FENTANYL PF 250MCG/5ML AMPUL IV ONE (12:00)
[2018-03-03] MEDS ORDERED: NALOXONE PREFILLED SYRINGE 2 MG/2 ML SYRINGE IV ONE (12:00)
[2018-03-03] MEDS ORDERED: MIDAZOLAM HCL 5MG/ML VIAL 25 MG/5 ML VIAL IV ONE (12:00)
--- NOTE | 2018-03-03 12:00 | NUR ---
RN NOTES PATIENT WENT TO HAVE A CT AND US GUIDED BIOPSY.
[2018-03-03] MEDS ORDERED: LIDOCAINE HCL/PF 1% 30 ML SDV ONE (14:18)
--- NOTE | 2018-03-03 15:14 | NUR ---
RN NOTES PATIENT RETURN FROM BIOPSY. PATIENT IN STABLE CONDITION. PER ICU NURSE, VERSED 1.5 MG WAS GIVEN, AND FENTANYL 25 MCG WAS ALSO GIVEN. ORDER TO POSITION PATIENT ON RIGHT SIDE FOR 4-6HOURS.
[2018-03-03 16:04] VITALS: BP 121/86
--- NOTE | 2018-03-03 16:30 | NUR ---
RN NOTES DR LEIVA DID WOUND DEBRIDEMENT ON PATIENT'S WOUND, CONSENT SIGNED. CLEANSE WITH NS, PACKED WITH NS SOAKED GAUZE, COVERED WITH MEPILEX.
--- NOTE | 2018-03-03 19:29 | NUR ---
RN CLOSING NOTES PATIENT IN STABLE CONDITION. NO ACUTE DISTRESS, NO SOB. ALL NEEDS ATTENDED AND PROVIDED. SAFETY MEASURES INITIATED. KEPT PATIENT COMFORTABLE. BED IN LOW/LOCKED POSITION, SIDERAILS UPX2, CALL LIGHT IN REACH. ENDORSED TO NIGHT RN FOR SABINA.
--- NOTE | 2018-03-03 19:30 | NUR ---
rn note; RECEIVED PT IN BED AWAKE AND ALERT. . BREATHING EVENLY. NO SOB. NAD. SKIN WARM NAD DRY. S/P R KIDNEY NEEDLE ASPIRATION BX W/ NO COMPLICATIONS/ NO BLEEDING NOTED. DENIED ANY PAIN OR DISCOMFORT. NEEDS ATTENDED. BED LOW LOCKED. CALL LIGHT WITHIN REACH WILL CONT TO MONITOR ,
[2018-03-03 19:46] VITALS: BP 148/91
[2018-03-03 20:00] VITALS: BP 148/91
[2018-03-03] MEDS: ropiniROLE 0.5 MG TABLET PO SCH (21:12)
[2018-03-03] MEDS: ATORVASTATIN 10 MG TABLET PO SCH (21:12)
[2018-03-03] MEDS: DOCUSATE SODIUM 250 MG CAPSULE PO SCH (21:12)
--- NOTE | 2018-03-03 23:25 | NUR ---
norco given as ordered for c/o l arm/ elbow pain. will cont to monitor ,
[2018-03-04] VITALS (20 sets, daily range): BP systolic 84–154; BP diastolic 42–106
--- NOTE | 2018-03-04 04:30 | NUR ---
pt called stated he's not feeling good, and feeling nauseated, claimed he's sweating, BS check and result is 142,
[2018-03-04] MEDS: ONDANSETRON HCL/PF 4 MG/2 ML VIAL IVP PRN ×2 (04:34→13:33)
--- NOTE | 2018-03-04 04:35 | NUR ---
prn zofran administered to the pt via ivp for pt's c/o nausea
[2018-03-04 06:28] LABS: BASOPHILS # (AUTO) 0.1 /CMM (0.0-0.2); BASOPHILS % (AUTO) 0.5 % (0.0-2.0); EOSINOPHILS % (AUTO) 3.5 % (0.0-6.0); HEMATOCRIT 34 % (39-51); HEMOGLOBIN 11.4 g/dL (13.5-17.5); LYMPHOCYTES # (AUTO) 2.2 /CMM (0.8-4.8); LYMPHOCYTES % (AUTO) 10.3 % (20.0-44.0); MEAN CORPUSCULAR HGB CONC 34 g/dl (31.0-36.0); MEAN CORPUSCULAR VOLUME 93 fL (80-96); MONOCYTES # (AUTO) 0.9 /CMM (0.1-1.30); MONOCYTES % (AUTO) 4.3 % (2.0-12.0); NEUTROPHILS # (AUTO) 17.3 /CMM (1.8-8.9); NEUTROPHILS % (AUTO) 81.4 % (43.0-81.0); PLATELET COUNT (AUTO) 312 /CMM (150-450); RDW COEFFICIENT OF VARIATION 16.8 (11.5-15.0); RED BLOOD CELL COUNT(AUTO) 3.65 MIL/uL (4.5-6.0); WHITE BLOOD COUNT (AUTO) 21.2 K/uL (4.3-11.0)
[2018-03-04 06:39] LABS: CALCIUM, SERUM 9.2 mg/dL (8.5-10.1); MAGNESIUM 2.6 mg/dL (1.8-2.4); PHOSPHORUS 6.5 mg/dL (2.5-4.9); POTASSIUM 5.1 mmol/L (3.5-5.1)
[2018-03-04 06:40] LABS: CREATININE 9.1 mg/dL (0.6-1.3)
--- NOTE | 2018-03-04 06:42 | NUR ---
PT IN BED DOZING INTERMITTENTLY. BREATHING EVENLY. REPORTED FEELING WEAK. VITAL SIGNS OBTAINED. WNL. NO HYPO OR HYPERGLYCEMIA. NO SOB. SATTING AT 98% ON O2 AT 3LPN VIA NC. PT IS DUE FOR HD TODAY. NEEDS ATTENDED. BED LOW LOCKED.CALL LIGHT WITHIN REACH. WILL CONT TO MONITOR
[2018-03-04] MEDS: BLOOD SUGAR DIAGNOSTIC 1 EACH STRIP VI SCH ×4 (07:10→22:27)
--- NOTE | 2018-03-04 07:30 | NUR ---
MS/RN Patient received Patient received from date night caregiver. All needs attended, safety measures in place, will continue to monitor and ensure safety.
[2018-03-04] MEDS: VIT B CMPLX 3/FA/VIT C/BIOTIN 1 TAB TABLET PO SCH (08:09)
[2018-03-04] MEDS: SEVELAMER CARBONATE 800 MG TABLET PO SCH ×3 (08:09→17:54)
[2018-03-04] MEDS: ZINC SULFATE 220 MG CAPSULE PO SCH (08:09)
[2018-03-04] MEDS: CYCLOBENZAPRINE 10 MG TABLET PO SCH ×3 (08:09→17:54)
[2018-03-04] MEDS: ASCORBIC ACID 500 MG TABLET PO SCH (08:09)
[2018-03-04] MEDS: SODIUM BICARBONATE 650 MG TABLET PO SCH (08:10)
--- NOTE | 2018-03-04 08:10 | NUR ---
WOUND CARE CONSULT WOUND CARE RECEIVED CONSULT FOR SACRAL REDNESS/PREVIOUS ABSCESS ON PERINEUM. WOUND CARE WILL DEFER CONSULT AND ALL TREATMENT PLANS TO SURGICAL TEAM WHO ARE CURRENTLY FOLLOWING. PATIENT WITH MADELYN AT 16, ALL PRESSURE ULCER PREVENTION MEASURES NOTED TO BE IN PLACE AT THIS TIME.
--- NOTE | 2018-03-04 08:46 | NUR ---
MS/RN Medications Morning medications administered as ordered.
--- NOTE | 2018-03-04 10:00 | NUR ---
MS/RN Head to toe assessment Head to toe assessment completed, see flow sheet. Patient A/OX3, denies any pain or shortness of breath at this time. All needs attended.
--- NOTE | 2018-03-04 10:05 | NUR ---
MS/RN Labs Morning labs reviewed: -WBC 21.2 -H&H 11.4/34 -BUN 66 -Creat 9.1 -K+ 5.1
[2018-03-04 10:06] LABS: EOSINOPHILS % (MANUAL) 4 % (0-4); LYMPHOCYTES % (MANUAL) 6 % (16-48); MONOCYTES % (MANUAL) 4 % (0-11.0); NEUTROPHILS % (MANUAL) 86 (42-76)
--- NOTE | 2018-03-04 12:00 | NUR ---
MS/RN Blood sugar Blood sugar at noon 157, will administer insulin when patient eats.
--- NOTE | 2018-03-04 12:20 | NUR ---
MS/RN HDX HDX started at bedside.
--- NOTE | 2018-03-04 12:25 | NUR ---
MS/RN Hypotensive Called to room by HDX nurse, patient hypotensive 88/40. Order entered for albumin 25% for blood pressure support during HDX.
[2018-03-04] MEDS ORDERED: ALBUMIN 25% 25 GM in PREMIX 1 EA IV PRN (12:30)
--- NOTE | 2018-03-04 12:30 | NUR ---
MS/RN Rapid response Called to room by HDX nurse as patient vomiting. Upon entering room, patient noted to be cold and clammy. Vital signs at this time -HR 88 -BP 93/43 -Saturation on 3l 95% [facility] medical group called and attempted to ask for MOBILE PHLEBOTOMIST to be paged, but placed on hold. Patient vomited two further times and continues to be hypotensive. Rapid response called due to change in mental status. While awaiting for MEDIA STRATEGIST, patient placed on monitor (ST) and blood glucose rechecked (205). HDX still ongoing at this time, HDX nurse asking for two further bottles of albumin. Request for nurse to stop dialysis, but at this time unwilling. MEDIA STRATEGIST team and Dr Rico at bedside. HDX stopped. Orders given by Dr Rico for stat CXR, CT abdo and pelvis, EKG, ABG and labs
[2018-03-04 13:08] LABS: ABG OXYGEN SATURATION 89.9 % (92.0-98.5); ABG PCO2 33.8 mmHg (35.0-45.0); ABG PH 7.359 (7.350-7.450); ABG PO2 65.3 mmHg (75.0-100.0); AaDO2 94.5 mmHg; COHb 0.3 % (0.5-1.5); MetHb 0.8 % (0.0-1.5); O2Hb 88.9 % (94.0-97.0); SITE, ABG Right Radial; VENT MODE, BG NASAL CANNULA
[2018-03-04 13:16] LABS: BASOPHILS # (AUTO) 0.1 /CMM (0.0-0.2); BASOPHILS % (AUTO) 0.3 % (0.0-2.0); EOSINOPHILS % (AUTO) 0.3 % (0.0-6.0); HEMATOCRIT 28 % (39-51); HEMOGLOBIN 9.5 g/dL (13.5-17.5); LYMPHOCYTES % (AUTO) 9.1 % (20.0-44.0); MEAN CORPUSCULAR HGB CONC 34 g/dl (31.0-36.0); MEAN CORPUSCULAR VOLUME 93 fL (80-96); MONOCYTES % (AUTO) 4.4 % (2.0-12.0); NEUTROPHILS # (AUTO) 18.9 /CMM (1.8-8.9); NEUTROPHILS % (AUTO) 85.9 % (43.0-81.0); PLATELET COUNT (AUTO) 312 /CMM (150-450); RDW COEFFICIENT OF VARIATION 17.1 (11.5-15.0); RED BLOOD CELL COUNT(AUTO) 3.03 MIL/uL (4.5-6.0)
[2018-03-04 13:26] LABS: CALCIUM, SERUM 9.3 mg/dL (8.5-10.1); POTASSIUM 4.8 mmol/L (3.5-5.1)
[2018-03-04 13:29] LABS: CREATININE 8.5 mg/dL (0.6-1.3)
--- NOTE | 2018-03-04 13:31 | NUR ---
RN NOTE RECEIVED STAT NEW ORDERS FORM DR DEISI COLLINS AND LORELEI BRYANT. ALL THE ORDERS READ BACK, VERIFIED. NOTED AND CARRIED OUT
[2018-03-04 13:35] LABS: ALBUMIN 3.9 g/dL (3.4-5.0); BILIRUBIN,TOTAL 0.7 mg/dL (0.2-1.0)
--- NOTE | 2018-03-04 13:37 | NUR ---
TRANSFER RN NOTE RCVD PT TRANSFERRED FROM [facility] UNIT, PT AWAKE AND ALERT, WITH COLD SKIN, BLUISH TOES THAT PT STATES TO BE NORMAL. SR ON TELE, VITAL SIGNS STABLE. GOOD SATURATION ON 02 VIA NC. PRIOR TO TRANSFER PT MEDICATED WITH ZOFRAN FOR N/EMESIS X2 REPORTED BY FRIDA GELLER. LEFT AC #18 C/D/I/PATENT. NO S/O INFILTRATION/PHLEBITIS OBSERVED UPON FLUSHING LINE. PT HAS A DEEP WOUND OVER SACRAL AREA. CT ABDOMEN/PELVIS ORDERED BY DR. COLLINS WILL DETERMINE PT'S STATUS PRIOR TO TRANSPORTING TO RADIOLOGY FOR TEST. BED IN LOW AND LOCKED POSITION. CALL LIGHT WITHIN REACH.
[2018-03-04 14:04] LABS: EOSINOPHILS % (MANUAL) 1 % (0-4); LYMPHOCYTES % (MANUAL) 8 % (16-48); MONOCYTES % (MANUAL) 1 % (0-11.0); MYELOCYTES % 2 % (0-0); NEUTROPHILS % (MANUAL) 88 (42-76)
--- NOTE | 2018-03-04 14:49 | NUR ---
UTILITY DRIVER NOTE PT TRANSPORTED PER PROTOCOL TO RADIOLOGY FOR CT ABD/PELVIS. PT TOLERATED TRANSPORT WELL AND WAS BROUGHT BACK TO HIS ROOM WITHOUT INCIDENT. WILL CONTINUE TO MONITOR.
[2018-03-04] MEDS ORDERED: NS 0.9% IV ONE (15:00)
[2018-03-04] MEDS ORDERED: DESMOPRESSIN IV ONE (15:00)
--- NOTE | 2018-03-04 15:11 | NUR ---
HEATER OPERATOR NOTE RCVD CALL FROM DR. NI ORDERING DDAVP 0.3MCG/KG TO BE DOSED BY PHARMACY. ORDER READ BACK TO DR. NI WHO ACKNOWLEDGED. SPOKE WITH JENARO AT PHARMACY WHO ASSISTED ON PLACING ORDER ON Zando. WILL CONTINUE TO MONITOR PT.
[2018-03-04 16:03] LABS: HEMOGLOBIN 10.2 g/dL (13.5-17.5)
--- NOTE | 2018-03-04 18:26 | NUR ---
RECORD SEARCHER NOTE PT REMAINS ALERT/ORIENTED, SR ON TELE. VITAL SIGNS STABLE, H/H STABLE. TOLERATING O2 VIA NC. WOUND CARE DONE ORDERED. LEFT AC #18 C/D/I/PATENT. NO S/O INFILTRATION/PHLEBITIS OBSERVED UPON FLUSHING. PT'S CARE WILL BE ENDORSED TO COPPING MACHINE OPERATOR RN FOR CONTINUITY OF CARE. BED IN LOW AND LOCKED POSITION. CALL LIGHT WITHIN REACH.
--- NOTE | 2018-03-04 19:35 | NUR ---
RN NOTES RECEIVED PT AWAKE ALERT ORIENTED X 3 EATING HIS DINNER. ABLE TO VERBALIZED FEELINGS WITH FAMILY AT BEDSIDE, EDUCATED REGARDING ISOLATION. ISOLATION TO MRSA NARES STRICTLY OBSERVED. DENIES PAIN AT THIS TIME. NO ACUTE RESP DISTRESS. WITH O2 3LPM VIA NC SATING 96% SR HR 96 ON TELE MONITOR. IV SITE ON LAC G 18 INTACT AND PATENT. RCW CLEANED WITH DRESSING INTACT. DIALYSIS STARTED AT BEDSIDE. KEPT PT CLEAN AND COMFORTABLE IN BED. CALL LIGHT WITHIN EASY REACH REMINDED PT TO USED WHEN NEED ASSISTANCE. WILL MONITORED CLOSELY FOR ANY S/S OF BLEEDING.
--- NOTE | 2018-03-04 21:00 | NUR ---
RN NOTES RN NOTES DURING INITIATION OF HD PT HAD AN EPISODE OF EMESIS WITH 100 CC AMT. PT STATED THAT HE FELT DIZZY AT FIRST BUT ITS GONE AFTER HE VOMITS. DIALYSIS FINISHED REMOVED 1L PER DIALYSIS NURSE. VS STABLE BP 129/57 SATING 96%. DENIES ANY PAIN . AFEBRILE. KEPT REPOSITIONED PT COMFORTABLE..
[2018-03-04] MEDS: DOCUSATE SODIUM 250 MG CAPSULE PO SCH (22:21)
[2018-03-04] MEDS: ropiniROLE 0.5 MG TABLET PO SCH (22:21)
[2018-03-04] MEDS: ATORVASTATIN 10 MG TABLET PO SCH (22:21)
--- NOTE | 2018-03-04 22:30 | NUR ---
RN NOTES CHARGED NURSE RECEIVED A CALL FROM [facility] ABOUT TRANSFER OF PT TO [facility] AND TO ENDORSED IN AM THAT THEY NEED WRITTEN MD ORDER ABOUT THE TRANSFER AND ALSO AUTHORIZATION FROM INSURANCE.
[2018-03-05] VITALS (38 sets, daily range): BP systolic 110–177; BP diastolic 45–89
--- NOTE | 2018-03-05 00:54 | NUR ---
RN NOTES PT ASLEEP AT THIS TIME. ENCOURAGED TO REPOSITIONED BUT PT STATED THAT HE IS COMFORTABLE AT THIS TIME. PT BREATHING WELL DENIES PAIN WILL CONTINUE TO MONITOR VS REMAINED SR. SATING 96%
--- NOTE | 2018-03-05 02:40 | NUR ---
RN NOTES LAB CAME TO DRAW H/H AND ENCOURAGED PT TO TURNED OR HAVE BED BATH SINCE HIS AWAKE. PER PT HIS COMFORTABLE AND HE WANTS TO GET REST FOR NOW. SET UP TIME FOR BED BATH AT 5AM.
[2018-03-05 02:54] LABS: HEMOGLOBIN 8.2 g/dL (13.5-17.5)
--- NOTE | 2018-03-05 03:14 | NUR ---
RN NOTES TRANSFER CARE TO [facility] [employer] FOR CONTINUITY OF CARE. PT IS ASLEEP. VSS
[2018-03-05 07:01] LABS: BASOPHILS # (AUTO) 0.1 /CMM (0.0-0.2); BASOPHILS % (AUTO) 0.3 % (0.0-2.0); EOSINOPHILS % (AUTO) 0.4 % (0.0-6.0); HEMATOCRIT 22 % (39-51); HEMOGLOBIN 7.3 g/dL (13.5-17.5); LYMPHOCYTES # (AUTO) 1.8 /CMM (0.8-4.8); LYMPHOCYTES % (AUTO) 8.8 % (20.0-44.0); MEAN CORPUSCULAR HGB CONC 33 g/dl (31.0-36.0); MEAN CORPUSCULAR VOLUME 93 fL (80-96); MONOCYTES # (AUTO) 1.1 /CMM (0.1-1.30); MONOCYTES % (AUTO) 5.2 % (2.0-12.0); NEUTROPHILS # (AUTO) 17.2 /CMM (1.8-8.9); NEUTROPHILS % (AUTO) 85.3 % (43.0-81.0); PLATELET COUNT (AUTO) 258 /CMM (150-450); RDW COEFFICIENT OF VARIATION 16.9 (11.5-15.0); RED BLOOD CELL COUNT(AUTO) 2.33 MIL/uL (4.5-6.0); WHITE BLOOD COUNT (AUTO) 20.2 K/uL (4.3-11.0)
[2018-03-05 07:13] LABS: CALCIUM, SERUM 8.9 mg/dL (8.5-10.1); MAGNESIUM 2.5 mg/dL (1.8-2.4); PHOSPHORUS 5.9 mg/dL (2.5-4.9); POTASSIUM 5.4 mmol/L (3.5-5.1)
[2018-03-05 07:14] LABS: CREATININE 7.6 mg/dL (0.6-1.3)
--- NOTE | 2018-03-05 08:00 | NUR ---
ICU/RN INITIAL NOTES,AM RECEIVED PT ALERT, AWAKE, ORIENTED TO PERSON, PLACE AND TIME. PT ON 3LITERS, TOLERATING WELL. SINUS ON TELE. PT ON RENAL DIET. LEFT AC PIV PATENT AND INTACT, RIGHT CHEST WALL HD CATH IN PLACE. PATENT AND INTACT, NO S/S OF INFECTION OR INFILTRATION NOTED. URINAL AT BEDSIDE. TRANSFER TO HIGHER LEVEL OF CARE PENDING. WILL FOLLOW UP. ALL NEEDS WILL BE MET, SAFETY MEASURES TAKEN, BED IN LOW POSITION, SIDE RAILS UP,CALL LIGHT WITHIN REACH. CLOSELY MONITORING HEMOGLOBIN, SERIAL H/H WILL BE DONE.
[2018-03-05] MEDS: CYCLOBENZAPRINE 10 MG TABLET PO SCH ×3 (08:06→17:50)
[2018-03-05] MEDS: VIT B CMPLX 3/FA/VIT C/BIOTIN 1 TAB TABLET PO SCH (08:06)
[2018-03-05] MEDS: ZINC SULFATE 220 MG CAPSULE PO SCH (08:06)
[2018-03-05] MEDS: SEVELAMER CARBONATE 800 MG TABLET PO SCH ×3 (08:06→17:50)
[2018-03-05] MEDS: BLOOD SUGAR DIAGNOSTIC 1 EACH STRIP VI SCH ×4 (08:06→21:38)
[2018-03-05] MEDS: ASCORBIC ACID 500 MG TABLET PO SCH (08:06)
[2018-03-05 09:44] LABS: BAND % (MANUAL) 2 % (0.0-5.0); EOSINOPHILS % (MANUAL) 1 % (0-4); LYMPHOCYTES % (MANUAL) 9 % (16-48); MONOCYTES % (MANUAL) 6 % (0-11.0); NEUTROPHILS % (MANUAL) 82 (42-76)
[2018-03-05 10:36] LABS: HEMOGLOBIN 7.7 g/dL (13.5-17.5)
--- NOTE | 2018-03-05 13:00 | NUR ---
ICU/RN: HEMODIALYSIS DONE. 1.5 LITERS OUT. ONE UNIT PRBC TRANSFUSED DURING HD. TOLERATED WELL. NO ADVERSE REACTIONS NOTED. WILL CONTINUE TO MONITOR.
[2018-03-05 13:29] LABS: BASOPHILS % (AUTO) 0.2 % (0.0-2.0); EOSINOPHILS % (AUTO) 1.5 % (0.0-6.0); HEMATOCRIT 26 % (39-51); HEMOGLOBIN 8.9 g/dL (13.5-17.5); LYMPHOCYTES # (AUTO) 2.4 /CMM (0.8-4.8); LYMPHOCYTES % (AUTO) 12.7 % (20.0-44.0); MEAN CORPUSCULAR HGB CONC 34 g/dl (31.0-36.0); MEAN CORPUSCULAR VOLUME 93 fL (80-96); MONOCYTES # (AUTO) 1.4 /CMM (0.1-1.30); MONOCYTES % (AUTO) 7.3 % (2.0-12.0); NEUTROPHILS # (AUTO) 14.8 /CMM (1.8-8.9); NEUTROPHILS % (AUTO) 78.3 % (43.0-81.0); PLATELET COUNT (AUTO) 247 /CMM (150-450); RED BLOOD CELL COUNT(AUTO) 2.84 MIL/uL (4.5-6.0); WHITE BLOOD COUNT (AUTO) 18.9 K/uL (4.3-11.0)
[2018-03-05] MEDS ORDERED: EPOETIN ALFA (10,000 UNIT) 10,000 UNIT/ML VIAL SQ ONE (15:00)
--- NOTE | 2018-03-05 17:30 | NUR ---
ICU/RN: PER CASE MANAGEMENT PT WILL BE TRANSFERRED TO [facility] IN [place]. INFORMATION RELAYED TO DEISY BRYANT. CASE MANAGEMENT CONTACTED BY PRIMARY REQUESTING A MORE LOCAL YET HIGHER LEVEL OF CARE FOR THE PT. PT WILL STAY IN ICU OVER NIGHT. CASE MANAGEMENT WILL CONTINUE LOOKING FOR PLACEMENT.
--- NOTE | 2018-03-05 18:29 | NUR ---
ICU/RN: ENDING NOTES,AM REPORT WILL BE ENDORSED TO NIGHT NURSE FOR CONTINUATION OF CARE. ALL NEEDS ATTENDED TO. PT ON NASAL CANULA, NO DISTRESS NOTED. SERIAL HEMOGLOBIN CONTINUES TO TREND H/H. PT TRANSFUSED WITH ONE UNIT PRBC. PT STILL PENDING TRANSFER TO HIGHER LEVEL OF CARE. ALL NEEDS ATTENDED TO. PER DEISY UNCLAIMED PROPERTY OFFICER IF BP ELEVATED TO CALL MD. SAFETY MEASURES TAKEN, BED IN LOW POSITION, SIDE RAILS UP, CALL LIGHT WITHIN REACH. WILL CONTINUE CARE
--- NOTE | 2018-03-05 19:20 | NUR ---
RN NOTES RECEIVED PT AAOX4.ON 3LITERS NC TOLERATING WELL. SR ON TELE MONITOR. BILATERAL BREATH SOUND DIMINISHED. DENIES PAIN AT THIS TIME. LEFT AC G 18 HL PATENT AND INTACT, RIGHT CHEST WALL HD CATH INTACT NO BLEEDING. NO ACTIVE BLEEDING PRESENT. REPOSITIONED PT PT COMFORTABLE. FAMILY AT BEDSIDE. PENDING TRANSFER TO HIGHER LEVEL OF CARE, STILL LOOKING FOR A GOOD HOSPITAL PER AM NURSE. KEPT PT CLEANED AND DRY. CALL LIGHT KEPT WITHIN EASY REACH. WILL MONITOR CLOSELY
[2018-03-05 21:31] LABS: HEMOGLOBIN 8.2 g/dL (13.5-17.5)
[2018-03-05] MEDS: ATORVASTATIN 10 MG TABLET PO SCH (21:34)
[2018-03-05] MEDS: ropiniROLE 0.5 MG TABLET PO SCH (21:34)
[2018-03-05] MEDS: DOCUSATE SODIUM 250 MG CAPSULE PO SCH (21:34)
[2018-03-05] MEDS ORDERED: CT SWABBABLE VALVE TRANS SET 1 EA INFUS.SET MC ONE (23:23)
[2018-03-05] MEDS ORDERED: IOHEXOL-300 100 ML VIAL IV ONE (23:23)
[2018-03-05] MEDS ORDERED: IV NS 0.9% 500 ML IV ONE (23:23)
[2018-03-05 23:24] LABS: BASOPHILS % (AUTO) 0.3 % (0.0-2.0); EOSINOPHILS % (AUTO) 2.6 % (0.0-6.0); HEMATOCRIT 23 % (39-51); HEMOGLOBIN 7.8 g/dL (13.5-17.5); LYMPHOCYTES # (AUTO) 1.7 /CMM (0.8-4.8); LYMPHOCYTES % (AUTO) 11.8 % (20.0-44.0); MEAN CORPUSCULAR HGB CONC 33 g/dl (31.0-36.0); MEAN CORPUSCULAR VOLUME 93 fL (80-96); MONOCYTES % (AUTO) 6.7 % (2.0-12.0); NEUTROPHILS # (AUTO) 11.3 /CMM (1.8-8.9); NEUTROPHILS % (AUTO) 78.6 % (43.0-81.0); PLATELET COUNT (AUTO) 237 /CMM (150-450); RDW COEFFICIENT OF VARIATION 16.9 (11.5-15.0); RED BLOOD CELL COUNT(AUTO) 2.53 MIL/uL (4.5-6.0); WHITE BLOOD COUNT (AUTO) 14.4 K/uL (4.3-11.0)
--- NOTE | 2018-03-05 23:55 | NUR ---
RN NOTES 22:30 - DEISY BRYANT ORDERED CTA ABDOMEN/PELVIS. INFORMED PT REGARDING THE IMPORTANCE OF CTA TO BE DONE SOON, PT SO UPSET AND STATING THAT HE WANTS TO GET REST/SLEEP. CONSENT SIGNED FOR THE SECOND TIME I ASKED. PT SIGNED CONSENT. CALLED RADIOLOGY DEPARTMENT ABOUT THE ORDER. 2250 - RADIOLOGY STAFF PICKED UP THE PT. MONITOR AND ACCOMPANIED PT TO RADIOLOGY AND TOLERATED WELL. 2335 - H/H RESULT CAME WITH HGB 7.8 PER DEISY GIVE HIM I UNIT OF PRBC. WHEN HE GETS BACK FROM RADIOLOGY. PT IS IN STABLE CONDITION. PT TOLERATE RADIOLOGY
[2018-03-06] VITALS (20 sets, daily range): BP systolic 134–173; BP diastolic 67–96
--- NOTE | 2018-03-06 00:35 | NUR ---
RN NOTES ACTIVITIES COUNSELOR BERTO CAME AND TALKED TO CHARGE NURSE SHARRON AND ME THAT JAYCOB PAINTER. ACTIVITIES COUNSELOR FROM [facility] CALLED SAID THAT THE PATIENT BED IS READY AND WHY IS THE PT NOT BEEN TRANSFER YET. INFORMED ACTIVITIES COUNSELOR THAT SURGICAL AIDES TEACHER AND OPERATOR COATING [place] STILL LOOKING FOR A GOOD PLACE TO TRANSFER PER PREVIOUS NURSE REPORT. LEAVE A MESSAGE TO DEISY ABOUT THE CALL AND TO VERIFY ABOUT THE CANCELLATION. WAITING FOR THE RESPONSE.
--- NOTE | 2018-03-06 01:10 | NUR ---
RN NOTES 1 UNIT OF PRBC STARTED TO GIVE TEMP 98.6 RESP 18 PULSE 74 BP 142/67 MMHG. WILL MONITOR FOR ANY ADVERSE REACTION OR SIDE EFFECT.
--- NOTE | 2018-03-06 01:53 | NUR ---
RN NOTES JAYDEN FROM [facility] CALLED AND ASKED ABOUT THE PT STATUS. PER JAYDEN THEY DON'T HAVE BEDS YET.
--- NOTE | 2018-03-06 04:05 | NUR ---
RN NOTES 1 UNIT PRBC GIVEN ORDERED TOLERATED WELL NO SIDE EFFECT OR ALLERGIC REACTION PRESENT. AFEBRILE. VSS. PT IS AAOX3 NO CHANGE OF MENTAL STATUS. PT COMPLAIN OF PAIN ON HIS JHONY WHILE DOING BED BATH, PER PT IS FROM LAST TIME WHEN THEY TRYING TO PLACE THE PICC LINE. OFFERED PAIN MEDICINE, PT REFUSED. TX. GIVEN ORDERED FOR ANY SKIN ISSUES. TOLERATED WELL.
[2018-03-06 04:46] LABS: INR 0.95 (0.87-1.13)
[2018-03-06 04:47] LABS: CALCIUM, SERUM 8.7 mg/dL (8.5-10.1); CREATININE 6.8 mg/dL (0.6-1.3); MAGNESIUM 2.3 mg/dL (1.8-2.4); PHOSPHORUS 5.2 mg/dL (2.5-4.9); POTASSIUM 4.2 mmol/L (3.5-5.1)
[2018-03-06 05:05] LABS: BASOPHILS % (AUTO) 0.3 % (0.0-2.0); EOSINOPHILS % (AUTO) 2.9 % (0.0-6.0); HEMATOCRIT 26 % (39-51); HEMOGLOBIN 8.6 g/dL (13.5-17.5); LYMPHOCYTES # (AUTO) 1.6 /CMM (0.8-4.8); LYMPHOCYTES % (AUTO) 11.7 % (20.0-44.0); MEAN CORPUSCULAR HGB CONC 34 g/dl (31.0-36.0); MEAN CORPUSCULAR VOLUME 92 fL (80-96); MONOCYTES # (AUTO) 0.9 /CMM (0.1-1.30); MONOCYTES % (AUTO) 6.6 % (2.0-12.0); NEUTROPHILS # (AUTO) 10.9 /CMM (1.8-8.9); NEUTROPHILS % (AUTO) 78.5 % (43.0-81.0); PLATELET COUNT (AUTO) 242 /CMM (150-450); RDW COEFFICIENT OF VARIATION 16.6 (11.5-15.0); RED BLOOD CELL COUNT(AUTO) 2.79 MIL/uL (4.5-6.0); WHITE BLOOD COUNT (AUTO) 13.9 K/uL (4.3-11.0)
--- NOTE | 2018-03-06 06:36 | NUR ---
RN NOTES PT ASLEEP AND COMFORTABLE AT THIS TIME. SATING 100% ON O2 3LPM VIA NC. TELE MONITOR REVEALS SR WITH FIRST DEGREE AVB WITH BBB HR 71. IV SITE INTACT AND PATENT. NO ACTIVE BLEEDING OR ANY SIGNS OF BLEEDING SHOWS. AFEBRILE. BT TOLERATED WELL. WILL ENDORSED CONTINUITY OF CARE TO AM NURSE AND TO FOLLOW UP HEALTH OUTREACH WORKER REGARDING TRANSFER FOR HLOC AND TO CLARIFY WHICH PLACE/HOSPITAL HE WILL BE TRANSFER. PT STABLE AT THIS TIME CONTIUE TO MONITOR H/H Q4 ORDERED BY [employer] MARKER LAST HGB. = 8.8 HCT. = 26. PT IS CLEANED AND DRY. CALL LIGHT KEPT WITHIN EASY REACH.
--- NOTE | 2018-03-06 08:00 | NUR ---
ICU/RN INITIAL NOTES,AM RECEIVED PT ALERT, AWAKE, ORIENTED TO PERSON, PLACE AND TIME. PT ON 3LITERS, TOLERATING WELL. SINUS ON TELE. PT ON RENAL DIET. LEFT AC PIV PATENT AND INTACT, RIGHT CHEST WALL HD CATH IN PLACE. PATENT AND INTACT, NO S/S OF INFECTION OR INFILTRATION NOTED. URINAL AT BEDSIDE. TRANSFER TO HIGHER LEVEL OF CARE PENDING, PT UPSET AND CLAIMS HE DOES NOT KNOW WHAT IS GOING ON. GAVE PT AN UPDATE ON HIS TRANSFER STATUS, CASE MANAGEMENT STILL LOOKING WILL FOLLOW UP. ALL NEEDS WILL BE MET, SAFETY MEASURES TAKEN, BED IN LOW POSITION, SIDE RAILS UP,CALL LIGHT WITHIN REACH. CLOSELY MONITORING HEMOGLOBIN, SERIAL H/H WILL BE DONE.
[2018-03-06] MEDS: VIT B CMPLX 3/FA/VIT C/BIOTIN 1 TAB TABLET PO SCH (08:09)
[2018-03-06] MEDS: SEVELAMER CARBONATE 800 MG TABLET PO SCH ×2 (08:09→12:12)
[2018-03-06] MEDS: BLOOD SUGAR DIAGNOSTIC 1 EACH STRIP VI SCH ×2 (08:09→12:12)
[2018-03-06] MEDS: CYCLOBENZAPRINE 10 MG TABLET PO SCH ×2 (08:10→12:12)
[2018-03-06] MEDS: ASCORBIC ACID 500 MG TABLET PO SCH (08:10)
[2018-03-06] MEDS: ZINC SULFATE 220 MG CAPSULE PO SCH (08:10)
[2018-03-06 10:48] LABS: HEMOGLOBIN 8.4 g/dL (13.5-17.5)
--- NOTE | 2018-03-06 12:05 | NUR ---
SW met with ANNETTE Drake who informed SW that pt. needs these two bills mailed out for him since he is hospitalized at this time. ANNETTE Drake also informed SW that pt. states he has two bills from [employer] that needs to be given to his high school social studies teacher Lizeth. SCOTT met with pt. bedside. Pt. is alert and oriented x 4. Pt. appears sad and tearful. Pt. states he has been healthy all of his life and since his stroke last year, his health has been failing. SW offered pt. active listening and emotional support. Pt. was appreciative. SW took the two bills from [employer] and gave it to the high school social studies teacher Lizeth at [employer] located across the parking lot. Pt's two letters were placed in the hospital outgoing mail box.
--- NOTE | 2018-03-06 14:30 | NUR ---
ICU/RN: PER CHIEF OF PLANNING RECEIVED ROOM AT [facility] FOR PT TRANSFER FOR HIGHER LEVEL OF CARE. WILL CALL ACCEPTING RN AND ENDORSE REPORT.
[2018-03-06] MEDS ORDERED: INSU100V28 SQ (14:44)
[2018-03-06] MEDS ORDERED: *INS REG SQ (14:44)
--- NOTE | 2018-03-06 15:40 | NUR ---
ICU/RN: AMBULANCE AT BEDSIDE [place] [facility] [place] ENDORSED TO EMT. VSS. ALL BELONGINGS SENT WITH PT. ALL EXIT CARE DONE. BELONGINGS FORM SIGNED. WOUND PHOTOS TAKEN AND PLACED IN CHART. REPORT ENDORSED TO [place]ING [place] [facility] [place]GE EDUCATION GIVEN TO PT AND EXPLAINED PLAN OF CARE TO HIM. PT SEEMS SAD, CRYING AT TIMES DUE TO HIS HEALTH CONDITION.
== END 2018-03-06 16:48 | disposition short-term general hospital (02) | DRG 264 ==
LOC: ER 14:22 → MEDSG2 16:13 → ICU 03-04 13:14
PROVIDERS: ADMIT Internal Medicine; ATTEND Internal Medicine
PROC: 0JBB0ZZ Excision of Perineum Subcutaneous Tissue and Fascia, Open Approach (ICD-10-PCS; principal; 2018-03-03)
PROC: 0TB03ZX Excision of Right Kidney, Percutaneous Approach, Diagnostic (ICD-10-PCS; principal; 2018-03-03)
PROC: 5A1D70Z Performance of Urinary Filtration, Intermittent, Less than 6 Hours Per Day (ICD-10-PCS; principal; 2018-03-03)
PROC: 5A1D70Z Performance of Urinary Filtration, Intermittent, Less than 6 Hours Per Day (ICD-10-PCS; 2018-03-04)
PROC: 5A1D70Z Performance of Urinary Filtration, Intermittent, Less than 6 Hours Per Day (ICD-10-PCS; 2018-03-05)
PROC: 30233N1 Transfusion of Nonautologous Red Blood Cells into Peripheral Vein, Percutaneous Approach (ICD-10-PCS; 2018-03-05)
DX: I13.2 Hypertensive heart and chronic kidney disease with heart failure and with stage 5 chronic kidney disease, or end stage renal disease (principal); E87.2 Acidosis; E11.22 Type 2 diabetes mellitus with diabetic chronic kidney disease; I95.3 Hypotension of hemodialysis; N18.6 End stage renal disease; E87.5 Hyperkalemia; N99.840 Postprocedural hematoma of a genitourinary system organ or structure following a genitourinary system procedure; I69.951 Hemiplegia and hemiparesis following unspecified cerebrovascular disease affecting right dominant side; I69.954 Hemiplegia and hemiparesis following unspecified cerebrovascular disease affecting left non-dominant side; L02.215 Cutaneous abscess of perineum; I50.9 Heart failure, unspecified; Z79.4 Long term (current) use of insulin; Z79.899 Other long term (current) drug therapy; Z79.82 Long term (current) use of aspirin; F41.9 Anxiety disorder, unspecified; M19.90 Unspecified osteoarthritis, unspecified site; N40.0 Benign prostatic hyperplasia without lower urinary tract symptoms; Z99.2 Dependence on renal dialysis; E78.5 Hyperlipidemia, unspecified; M85.9 Disorder of bone density and structure, unspecified; D64.9 Anemia, unspecified; Y84.9 Medical procedure, unspecified as the cause of abnormal reaction of the patient, or of later complication, without mention of misadventure at the time of the procedure; Y82.9 Unspecified medical devices associated with adverse incidents; Y92.89 Other specified places as the place of occurrence of the external cause; I45.10 Unspecified right bundle-branch block; F32.9 Major depressive disorder, single episode, unspecified; K59.00 Constipation, unspecified
CPT/HCPCS: 36415; 36600; 71045-TC; 76942-TC; 77012-TC; 80048-TC; 80053-TC; 82803-TC; 82962-TC; 83540-TC; 83735-TC; 84100-TC; 84484-TC; 85025-TC; 85027-TC; 85610-TC; 85730-TC; 86850-TC; 86921-TC; 87081-TC; 90935-TC; A4216; A4606; A6402; A6407; J0885; J1815; J2250; J2310; J2405; J2597; J3010; J3490; J7040; J7050; P9016-BL; P9047; Q9967; Z7610

== ENCOUNTER 2020-01-20 11:00 | Outpatient (CLI) | payer MEDICARE, OTHER ==
[~2020-01-20 11:00] MED LIST changes: +*INS REG SQ; +ASCO-352 PO; -ASCO500T9 PO; -ASPI-1169 PO; +ATOR10TA PO; +BISA10SU11 RC; -BISA10SU8 RC; -BLOO-668 IN; +CRAN425C6 PO; +HYDR-4384 PO; -HYDR-552 PO; +INSU100V28 SQ; -INSU100V3 SQ; -MERO500V3 IV; -RXVAN XX; -SACC250C PO; +SEVE800T8 PO; -VANC1PLA13 IV; +ZINC1CAP2 PO; -ZINC220C8 PO
[2020-01-20 13:10] LABS: BASOPHILS # (AUTO) 0.1 /CMM (0.0-0.2); BASOPHILS % (AUTO) 0.9 % (0.0-2.0); EOSINOPHILS % (AUTO) 4.5 % (0.0-6.0); HEMATOCRIT 35 % (39-51); LYMPHOCYTES % (AUTO) 8.2 % (20.0-44.0); MEAN CORPUSCULAR HGB CONC 31 g/dl (31.0-36.0); MEAN CORPUSCULAR VOLUME 92 fL (80-96); MONOCYTES # (AUTO) 0.6 /CMM (0.1-1.30); MONOCYTES % (AUTO) 4.7 % (2.0-12.0); NEUTROPHILS # (AUTO) 10.5 /CMM (1.8-8.9); NEUTROPHILS % (AUTO) 81.7 % (43.0-81.0); PLATELET COUNT (AUTO) 314 /CMM (150-450); RED BLOOD CELL COUNT(AUTO) 3.83 MIL/uL (4.5-6.0); WHITE BLOOD COUNT (AUTO) 12.8 K/uL (4.3-11.0)
[2020-01-20 13:35] LABS: ALBUMIN 2.8 g/dL (3.4-5.0); BILIRUBIN,TOTAL 0.4 mg/dL (0.2-1.0); CALCIUM, SERUM 7.6 mg/dL (8.5-10.1); POTASSIUM 3.5 mmol/L (3.5-5.1); TOTAL PROTEIN, SERUM 7.4 g/dL (6.4-8.2)
[2020-01-20 16:31] LABS: CREATININE 8.8 mg/dL (0.6-1.3)
== END 2020-01-20 23:59 | disposition home or self-care (01) ==
LOC: LAB 11:00
PROVIDERS: ATTEND Internal Medicine
DX: Z01.818 Encounter for other preprocedural examination (principal); I51.7 Cardiomegaly; I70.0 Atherosclerosis of aorta; J92.9 Pleural plaque without asbestos; Z96.0 Presence of urogenital implants
CPT/HCPCS: 36415; 71046; 80053-TC; 85025-TC; 85730-TC

== ENCOUNTER 2020-03-17 13:23 | Emergency (ER) | payer MEDICARE ==
[~2020-03-17] VITALS: Ht 182.9 cm; Wt 117.9 kg
--- NOTE | 2020-03-17 13:25 | NUR ---
AAOX3, BIB CAREGIVER C/O NAIL AVULSION TO HIS LEFT 3RD TOE WHEN HE WAS WEARING HIS SOCK. PENDING MD ZACHERY ARAUJO.
[2020-03-17 14:06] VITALS: BP 141/79
--- NOTE | 2020-03-17 14:06 | NUR ---
Patient discharged to home in stable condition. Written and verbal after care instructions given. Patient verbalizes understanding of instruction.
== END 2020-03-17 14:07 | disposition home or self-care (01) ==
LOC: ER 13:29
DX: S91.205A Unspecified open wound of left lesser toe(s) with damage to nail, initial encounter (principal); I10 Essential (primary) hypertension; E78.5 Hyperlipidemia, unspecified; E11.9 Type 2 diabetes mellitus without complications; Z86.73 Personal history of transient ischemic attack (TIA), and cerebral infarction without residual deficits; Z79.4 Long term (current) use of insulin; Z79.899 Other long term (current) drug therapy; W22.8XXA Striking against or struck by other objects, initial encounter; Y93.89 Activity, other specified; Y92.89 Other specified places as the place of occurrence of the external cause; Y99.8 Other external cause status